=== PATIENT | female | born 1950 | race Caucasian/White ===

== ENCOUNTER 2019-01-24 09:14 | Inpatient (IN) ==
--- NOTE | 2019-01-24 09:39 | PROVIDER DOCUMENTATION ---
HPI-Respiratory General - General Chief Complaint: Shortness of Breath Stated Complaint: AMS Time Seen by Provider: 01/24/19 09:37 Source: patient, old records Allergies/Adverse Reactions: Patient Allergies Allergy/AdvReac Type Severity Reaction Status Date / Time No Known Allergies Allergy Verified 01/24/19 09:26 - History of Present Illness-Resp Nature of Presenting Problem: pt arrives per EMS who reported home 02 sat of "65%" upon their arrival. [facility]ats [facility] "[facility]" and called EMS. pt denies notable recent change in symptoms, denies recent sputum or fever. she has PMHx of bronchiectasis/PNA, is on home 02 which she says she adjusts from 2.5-3.0 L NC depending upon subjx symptoms. she has not taken her morning meds per her report, cannot name these but tells me it's "6-8." She tells me her pulmonologi st (Fab Mas) is in [place], her PCP locally is a Dr. Moulton. I find no admissions in her database here. initially family not present. subsequently her fiance' arrives and tells me last Wednesday she had a very brief spell where her 02 dropped for a few minutes and she became confused; they incr her 02 to 4L/min and she returned to normal. at the beside currently he tells me her MSE currently seems normal to him. she had arrived per EMS on 5L/min, but I turned her down to her 'baseline' 3L prior to fiance' arrival. her son also has now arrived and confirms her MSE seems normal @ present. he has a med list which includes Lasix 20 bid, explains during her last admit () she had "fluid retention," but no dx of CHF. he says every time they attempt to wean the Lasix she soon develops ankle edema. he notes she has been on maint. Prednisone for a long time, recently decreased from 20mg to [address] chest dtd April 06, 2018 interpreted as follows: IMPRESSION: 1. Pericardial effusion and trace bilateral pleural effusions. Nonspecific. 2. Advanced pulmonary fibrosis with bronchiectasis. 3. Large hiatal hernia. 4. Tiny nonobstructing left renal stone. Review of Systems - Adult - REVIEW OF SYSTEMS - ADULT ROS:: limited per condition (? patient may have AMS/dementia @ baseline ?) Constitutional: reports: no symptoms reported Eyes: reports: no symptoms reported Ears, Nose, Mouth & Throat: reports: no symptoms reported Cardiovascular: reports: no symptoms reported Respiratory: reports: see HPI Gastrointestinal: reports: no symptoms reported Genitourinary: reports: no symptoms reported Musculoskeletal: reports: no symptoms reported Integumentary: reports: no symptoms reported Neurological: reports: no symptoms reported Psychiatric: reports: no symptoms reported Endocrine: reports: no symptoms reported Hematologic/Lymphatic: reports: no symptoms reported Allergic/Immunologic: reports: no symptoms reported All Other Systems: Reviewed and Negative Past History - Adult - PAST MEDICAL HISTORY-ADULT Review of Records: reports: Old Records Reviewed Musculoskeletal: reports: orthopedic injury (pt reports she developed L foot- drop last Summer, and then tripped last Sep. resulting in ORIF for hip fx. she feels she made uneventful recovery. no hx of DVT/PE>) Physical Exam-General - PHYSICAL EXAM-ADULT Initial Vital Signs Reviewed: Yes - CONSTITUTIONAL General Appearance: appears well, alert, no apparent distress - EYES Eyes: PERRL/EOMI, pink conjunctivae - HEAD, EARS, NOSE, MOUTH & THROAT HENMT: normocephalic/atraumatic, moist mucous membranes - NECK Neck: non-tender, supple - RESPIRATORY Respiratory: no accessory muscle use, crackles - CARDIOVASCULAR Cardiovascular: regular rate, rhythm, tachycardia - GASTROINTESTINAL (ABDOMEN) Abdominal Exam: normal bowel sounds, non tender, soft - LYMPHATIC Lymphatic: no adenopathy - MUSCULOSKELETAL Back Exam: normal inspection, no CVA tenderness Extremity: no pedal edema. negative: pulse deficit Peripheral Pulses: radial (R): 2+, radial (L): 2+ - SKIN Integumentary: normal color, normal turgor, warm/dry. negative: cyanosis, purpura, rash - NEUROLOGIC Neurologic: digital marketing project manager II-XII nml as tested, grossly normal - PSYCHIATRIC Psych/Mental Status: normal mood/affect, normal thought content Progress - PLAN OF CARE/RESULTS Progress/Plan/Lab Results: Vital Signs - 8 hr 01/24/19 09:14 01/24/19 09:19 01/24/19 09:21 Temperature 98.3 F Pulse Rate 112 H Respiratory Rate 22 Blood Pressure 129/58 129/58 O2 Sat by Pulse Oximetry 98 81 L 01/24/19 09:30 01/24/19 09:40 01/24/19 09:50 Temperature Pulse Rate 105 H 104 H 108 H Respiratory Rate 37 H 33 H 30 H Blood Pressure O2 Sat by Pulse Oximetry 92 L 95 91 L 01/24/19 10:00 01/24/19 10:10 01/24/19 10:18 Temperature Pulse Rate 104 H 101 H 112 H Respiratory Rate 30 H 31 H 24 Blood Pressure O2 Sat by Pulse Oximetry 68 L 62 L 94 L 01/24/19 10:20 01/24/19 10:30 01/24/19 10:40 Temperature Pulse Rate 100 H 99 H 99 H Respiratory Rate 35 H 31 H 35 H Blood Pressure O2 Sat by Pulse Oximetry 54 L 100 01/24/19 10:50 01/24/19 11:00 Temperature Pulse Rate 96 H 98 H Respiratory Rate 35 H 33 H Blood Pressure O2 Sat by Pulse Oximetry 96 98 Laboratory Results - last 24 hr 01/24/19 01/24/19 01/24/19 09:30 09:30 09:30 WBC 23.93 H RBC 3.18 L Hgb 7.8 L Hct 27.4 L MCV 86.2 MCH 24.5 L MCHC 28.5 L RDW Std Deviation 18.4 H Plt Count 342 MPV 9.0 Immature Gran % (Auto) 0.6 H Neut % (Auto) 90.6 H Lymph % (Auto) 3.7 L Laurel % (Auto) 3.9 Eos % (Auto) 1.0 Baso % (Auto) 0.2 Immature Gran # (Auto) 0.15 H Neut # (Auto) 21.67 H Lymph # (Auto) 0.89 L Laurel # (Auto) 0.93 H Eos # (Auto) 0.25 Baso # (Auto) 0.04 Segmented Neutrophils 88 H Band Neutrophils 3 H Lymphocytes 4 L Monocytes 4 Eosinophils 1 Hypochromia 1+ Stomatocytes OCC Specimen Type Sample Site pH pCO2 pO2 HCO3 Base Excess Oxyhemoglobin ABG O2 Sat (Calculated) ABG O2 Saturation ABG Carboxyhemoglobin ABG Methemoglobin Zia Test A-a O2 Difference Total Hemoglobin Lactate Liter Flow Blood Gas Modality FiO2 % Sodium 141 Potassium 4.2 Chloride 104 Carbon Dioxide 26 Anion Gap 11 BUN 37 H Creatinine 0.8 Estimated GFR/1.73 m2 > 60 BUN/Creatinine Ratio 46 Glucose 94 Calculated Osmolality 290 Calcium 8.4 L Total Bilirubin 0.21 AST 19 ALT 9 L Alkaline Phosphatase 60 Troponin T Uct-F-Yvbjjrmxkoj Pept Total Protein 5.3 L Albumin 2.6 L Globulin 2.7 Albumin/Globulin Ratio 1.0 Plasma Lactate 1.0 01/24/19 01/24/19 01/24/19 09:30 09:30 10:00 WBC RBC Hgb Hct MCV MCH MCHC RDW Std Deviation Plt Count MPV Immature Gran % (Auto) Neut % (Auto) Lymph % (Auto) Laurel % (Auto) Eos % (Auto) Baso % (Auto) Immature Gran # (Auto) Neut # (Auto) Lymph # (Auto) Laurel # (Auto) Eos # (Auto) Baso # (Auto) Segmented Neutrophils Band Neutrophils Lymphocytes Monocytes Eosinophils Hypochromia Stomatocytes Specimen Type ARTERIAL Sample Site R BRACHIAL pH 7.50 H pCO2 36 pO2 73 HCO3 28.5 H Base Excess 4.6 H Oxyhemoglobin 94.0 L ABG O2 Sat (Calculated) 10.7 L ABG O2 Saturation 98.1 ABG Carboxyhemoglobin 2.90 H ABG Methemoglobin 1.3 Zia Test NO A-a O2 Difference 196.0 Total Hemoglobin 8.0 L Lactate 0.60 Liter Flow 6.0 Blood Gas Modality CANNULA FiO2 % 44.0 Sodium Potassium Chloride Carbon Dioxide Anion Gap BUN Creatinine Estimated GFR/1.73 m2 BUN/Creatinine Ratio Glucose Calculated Osmolality Calcium Total Bilirubin AST ALT Alkaline Phosphatase Troponin T 0.072 Iut-P-Lkjiekjbdgx Pept 8167 H Total Protein Albumin Globulin Albumin/Globulin Ratio Plasma Lactate Orders Category Date Time Status Saline Loc NOW Care 01/24/19 09:47 Active CHEST-1 VIEW [RAD] Stat Exams 01/24/19 09:51 Completed ABG [RESP] Routine Lab 01/24/19 10:00 Completed BLOOD CULTURE [BLDCUL] Stat Lab 01/24/19 09:31 Results BLOOD CULTURE [BLDCUL] Stat Lab 01/24/19 11:59 Ordered CBC WITH DIFF [HEME] Stat Lab 01/24/19 09:30 Completed COMPREHENSIVE METABOLIC PANEL [CHEM] Stat Lab 01/24/19 09:30 Completed LACTATE, PLASMA [CHEM] Stat Lab 01/24/19 09:30 Completed PRO B-NATRIURETIC PEPTIDE Stat Lab 01/24/19 09:30 Completed TROPONIN T Stat Lab 01/24/19 09:30 Completed Albuterol [Albuterol Neb] Med 01/24/19 09:47 Discontinued 2.5 mg INH NOW ONE Furosemide [Lasix] Med 01/24/19 11:57 Discontinued 80 mg IV NOW ONE Levofloxacin 500 mg/D5w [Levaquin 500 mg/D5w] Med 01/24/19 11:57 Active 500 mg in 100 ml IV NOW Methylprednisolone Sod Succ [Solu-Medrol] Med 01/24/19 11:58 Discontinued 125 mg IV NOW ONE Aerosol Treatments Routine Oth 01/24/19 09:48 Completed Aerosol Treatments Stat Oth 01/24/19 09:48 Completed Pulse Oximetry Stat Ot 01/24/19 09:47 Completed Result Diagrams: 01/24/19 09:30 01/24/19 09:30 - REASSESSMENT Reassessment #1 Time Reassessed: 12:11 Status: unchanged (sats still requiring signif support, however pt conversant and comfortable. wbc 23k (maint. Pred), imaging suggx signif bibasilar consolidation: will cover empirically w/ abx/blood culture for poss PNA, but clinically appears cor pulmonale. pt agrees to admt, will consult) - CONSULTS/PCP/HOSPITALIST Notification #1 *Consult/PCP/Hospitalist*: [place] Time Discussed: 12:05 Consult Disposition: Admit Departure - Departure Date of Disposition Decision: 01/24/19 Time of Disposition Decision: 12:13 DIAGNOSIS: Acute respiratory failure Disposition: ADMITTED INPATIENT 09 Certified Medical Emergency: Emergent Condition: Critical Referrals and Follow-Ups: None,PCP [Primary Care Provider] - - Critical Care Note This patient required my direct & personal management of CC.: Yes Total Time (mins): 40 Critical Care Statement: This patient required my direct personal management to treat or rule out processes, the absence of which, could potentiallly result in sudden, clinically significant life or limb threatening deterioration. Attestation - Physician/ ANTONIO Attestation The physician spent face to face time with patient:: Yes Advanced Practice Provider documentation review:: Supervising physician onsite and consulted in the evaluation and care of this patient. The physician did have a face to face encounter with the patient.
[2019-01-24] MEDS ORDERED: ALBUTEROL NEB INH ONE (09:47)
--- NOTE | 2019-01-24 10:10 | Diag Imaging Result Doc PS360 ---
EXAM: CHEST-1 VIEW HISTORY: dyspnea, hx bronchiectasis, PNA TECHNIQUE: Chest single view COMPARISON: 10/06/2017 FINDINGS: There are increased interstitial markings diffusely throughout both lungs with slight nodularity.. The heart is not enlarged. Questionable trace pleural fluid. IMPRESSION: Dense and diffuse bilateral infiltrates. Electronically signed by Ravi Eaton 01/24/2019 10:08 AM
[2019-01-24 10:16] LABS: ALLEN TEST NO; BE 4.6 mmoll (-3.0-3.0); BLOOD TYPE ARTERIAL; HCO3-(ACT) 28.5 mmoll (20.0-26.0); METHB 1.3 % (0.0-1.5); O2(CT) 10.7 mL/dL (15.0-23.0); PCO2(98.6) 36 mmHg (35-45); PO2(98.6) 73 mmHg (60-100); SAMPLE BLOOD; SAO2 98.1 % (95.0-100.0)
[2019-01-24 10:17] LABS: MODALITY CANNULA
[2019-01-24 10:20] LABS: BASO# 0.04 X1000 (0.0-0.2); BASO% 0.2 % (0.0-0.8); EOS# 0.25 X1000 (0.0-0.7); HEMATOCRIT 27.4 % (37.0-47.0); HEMOGLOBIN 7.8 g/dL (12.0-16.0); IMM GRAN# 0.15 X1000 (0.0-0.04); IMM GRAN% 0.6 % (0.0-0.5); LYMPH# 0.89 X1000 (1.2-3.4); LYMPH% 3.7 % (20.5-51.1); MCH 24.5 PG (27-31); MCHC 28.5 g/dL (33-37); MCV 86.2 FL (81-99); MONO# 0.93 X1000 (0.11-0.59); MONO% 3.9 % (1.7-9.3); NEUT# 21.67 X1000 (1.4-6.5); NEUT% 90.6 % (42.2-75.2); PLT 342 X1000 (130-400); RBC 3.18 XMIL (4.2-5.4); RDW 18.4 % (11.5-14.5); WBC 23.93 X1000 (4.8-10.8)
[2019-01-24 10:29] LABS: AGAP 11; ALBUMIN 2.6 g/dL (3.5-5.0); ALKALINE PHOSPHATASE 60 U/L (32-104); BUN 37 mg/dL (8-22); CALCIUM 8.4 mg/dL (8.8-10.2); CHLORIDE 104 mmol/L (98-107); COSMO 290; CREATININE 0.8 mg/dL (0.5-0.9); ESTIMATED GFR > 60; GLUCOSE 94 mg/dL (70-104); GOT 19 U/L (10-30); GPT 9 U/L (10-36); POTASSIUM 4.2 mmol/L (3.5-5.1); SODIUM 141 mmol/L (136-145); TCO2 26 mmol/L (25-35); TOTAL BILIRUBIN 0.21 mg/dL (0.20-1.00); TOTAL PROTEIN 5.3 g/dL (6.3-8.3)
[2019-01-24 10:36] LABS: BANDS 3 % (0-1); EOS 1 % (1-10); HYPOCHROM 1+; LYMPHS 4 % (21-51); MONO 4 % (1-9); SEGS 88 % (42-75)
[2019-01-24 10:37] LABS: STOMATOCYTES OCC
--- NOTE | 2019-01-24 11:42 | ED EKG INTERP ---
This chart was entered by Gerald Gibson Scribe, acting as scribe for Kenney Youssef MD. EKG Interpretation - EKG Time of EKG reading by physician:: 09:18 EKG Read and Signed by:: Kenney Youssef EKG Interpretation (*Must complete 3 of following elements*): Abnormal Rate: 113 Rhythm: Sinus Tachycardia QRS: RBB (incomplete), LVH Comments: Inferior and anterior infarct age undetermined Attestation - Physician/ ANTONIO Attestation The physician spent face to face time with patient:: Yes Advanced Practice Provider documentation review:: Supervising physician onsite and consulted in the evaluation and care of this patient. The physician did have a face to face encounter with the patient. This chart was documented by the indicated scribe, (Gerald Gibson Scribe) and accurately reflects the services I performed and decisions made by me, Kenney Collins MD, as attested by the provider's signature.
[2019-01-24] MEDS ORDERED: LEVAQUIN 500 MG/D5W 500 MG/100 ML IVPB IV ONE (11:57)
[2019-01-24] MEDS ORDERED: LASIX IV ONE (11:57)
[2019-01-24] MEDS ORDERED: SOLU-MEDROL IV ONE (11:58)
--- NOTE | 2019-01-24 12:35 | EKG Report ---
Test Performed on : 01/24/2019 09:18:56 AM Test Reason : ED. NO EKG ORDER FOR MUSE Blood Pressure : / mmHG Vent. Rate : 113 BPM Atrial Rate : 113 BPM P-R Int : 158 ms QRS Dur : 098 ms QT Int : 346 ms P-R-T Axes : 025 -17 021 degrees QTc Int : 474 ms Sinus tachycardia. Possible Left atrial enlargement Incomplete right bundle branch block Left ventricular hypertrophy Inferior infarct , age undetermined Anterior infarct , age undetermined Abnormal ECG No previous ECGs available Unconfirmed Result
[2019-01-24] MEDS ORDERED: ZOFRAN IV PRN (13:05)
[2019-01-24] MEDS ORDERED: DUONEB (A & A) INH PRN (13:10)
--- NOTE | 2019-01-24 13:17 | Diag Imaging Result Doc PS360 ---
EXAM: CT THORAX W/O CONTRAST 01/24/2019 HISTORY: evaluate pulm fibrosis TECHNIQUE: This exam was performed using automated exposure control, adjustment of mA or kV according to patient size, and/or use of iterative reconstruction technique. COMMENT: The current examination is compared with the previous study of 04/06/2018. There are patchy groundglass opacities particularly on the left side in the upper lobe. There is groundglass opacity, traction bronchiectasis and honeycombing in the lower lobes consistent with a UIP pattern. While the basilar findings are similar to the previous examination, the groundglass opacities in the upper lung zones are much worse particularly in the left upper lobe. This may represent a superimposed pneumonia. There is a small pleural effusion on the left as there was on the previous study. There is a small amount of pleural thickening versus loculated effusion on the right. There is fluid in the pericardial space which is slightly larger than on the previous examination measuring over 9 mm anteriorly. There is a hiatal hernia. There is paratracheal and aorticopulmonary window adenopathy which is worse than on the previous study. There is a fairly large amount of stool in the transverse colon. IMPRESSION: Worsening groundglass opacities particularly in the left upper lobe which may represent pneumonia superimposed on pulmonary fibrosis. Electronically signed by Veto Cottrell 01/24/2019 1:14 PM
[2019-01-24] MEDS: DUONEB (A & A) INH SCH ×2 (15:32→20:05)
--- NOTE | 2019-01-24 17:04 | HISTORY AND PHYSICAL ---
CHIEF COMPLAINT: Shortness of breath and oxygen desaturation. HISTORY OF PRESENT ILLNESS: This 68-year-old white female, who is on chronic oxygen therapy for pulmonary fibrosis and COPD, was at her home this morning, and her dentist attendant noted low oxygen saturation of 65, which was subsequently confirmed by medical care evaluation specialist. There was a questionable malfunction of her oxygen concentrator, which has yet to be verified. The patient did not have any worsening cough, shaking chills, but had become suddenly short of breath. She denied any chest pain or palpitations. She always runs a relatively high heart rate which is over 100, due to her chronic lung conditions. The patient has been hospitalized since I first saw her in September several times in [place], and I do not have adequate communication with [place] to verify testing and/or overall status. I last saw the patient 01/03/2019 following multiple hospitalizations. It is noted that the patient also has a chronic leukocytosis which has been looked at by a Hematology/Oncology in [place], but no specific findings or diagnosis was made. PAST MEDICAL HISTORY: 1. Pulmonary fibrosis. 2. Chronic obstructive pulmonary disease. 3. Hypertension. 4. Depression. 5. Rheumatic tricuspid stenosis. 6. Iron deficiency anemia. 7. Diaphragmatic hernia. 8. Left artificial hip. 9. Chronic leukocytosis. 10. Chronic tachycardia. PAST SURGICAL HISTORY: Left hip replacement surgery. SOCIAL HISTORY: The patient is a . She does not use alcohol. She always wears seat belts. FAMILY HISTORY: Hypertension, heart disease, fatty liver, dementia, and breast cancer. REVIEW OF SYSTEMS: As stated earlier, the patient has been out from her last hospitalization for approximately a month with no significant complications. She has not been wheezing or been more short of breath, but had an acute episode this morning for inexplicable reasons. The patient's son states that she has occasional episodes which appear to be stroke-like. He describes that her mouth will draw, and she will not be able to communicate for a short period of time. Most often this is associated with changes in her respiratory status. The patient denies any chest pain or palpitations. She has had no nausea or vomiting. She has no change in her bowel movements. She has no genitourinary complaints Neurologically, there has been no change. The patient's anxiety has been well controlled on present medications since the turn of the year, at least. MEDICATIONS: Eliquis 5 mg p.o. b.i.d., albuterol inhaler every 4 hours as needed, aspirin 81 mg p.o. daily, ferrous sulfate 325 p.o. daily, vitamin B12 injected monthly 1000 mcg, fluticasone nasal spray daily as needed, furosemide 20 mg p.o. b.i.d., ipratropium/albuterol aerosol treatments 3 times daily, lisinopril 10 mg daily, paroxetine 40 mg 1-1/2 p.o. daily, prednisone 20 mg p.o. daily, and trospium 20 mg p.o. daily. PHYSICAL EXAMINATION: GENERAL: The patient is an elderly white female who is in no acute distress, but she does speak in short bursts of sentences, which is atypical for her usual pattern. Her speech is clear. ENT: Unremarkable. EYES: Sclerae are anicteric. Oral mucosa is adequately hydrated. NECK: There is no JVD present in the recumbent position. No bruits are heard. LUNGS: Show dry crackles in almost all peralta. The left side seems to be worse than the right. There is no wheezing. She has reasonable air movement which approximates her baseline level of air movement. CARDIOVASCULAR: Regular tachycardia. ABDOMEN: Bowel sounds are present. EXTREMITIES: No peripheral edema. LABORATORIES: White blood cell count is 23.9 (baseline is 15,000 to 23,000), hemoglobin 7.8, hematocrit 27, platelet count 342,000. Serum electrolytes were grossly normal. BUN 37, creatinine 0.8. ProBNP was 8167. Her initial blood gas showed a pH 7.5, pCO2 of 36, PO2 of 73, and 98% saturated on 6 L nasal cannula. ASSESSMENT AND PLAN: 1. The patient clearly has chronic lung disease with multisystem involvement. We are going to treat her as if she has pneumonia, adding antibiotics. The CT scan performed after her ER stay showed possible increase in the left upper lobe consolidation, which could be pneumonia superimposed upon her chronic pulmonary fibrosis. There were other subtle findings on that study. I am not worried about her white count, as it is not that far out from her usual. Her ABG is suggestive of hyperventilation brought on by her hypoxemia. We will continue oxygen at 4 L and monitor oxygen saturations. 2. Because of a high proBNP, an echocardiogram was ordered. The patient is on twice a day Lasix right now, and we will monitor fluid intake via catheter. 3. The patient's depression and anxiety will be maintained with her usual home medications. 4. Appropriate PRNs are written. cc: Lionel Eng MD
--- NOTE | 2019-01-24 17:20 | ECHO REPORT ---
ORDER DATE: 01/24/2019 INDICATION: Pulmonary hypertension, bilateral pleural effusions. M-MODE MEASUREMENTS: Left ventricle end diastole: 3.2. Left ventricle end systole: 2.0. Posterior wall: 1.4. Interventricular septum: 1.5. Left atrium: 3.0 Aortic diameter: 3.0 SUMMARY OF 2-DIMENSIONAL IMAGIN. Left ventricular function is hyperdynamic. Ejection fraction is probably on the order of 85% to 90%. There is very subtle systolic anterior motion of the mitral valve. The maximum gradient that appears to be within the chamber is 22 mmHg, related to the hyperdynamic, hypertrophic ventricle. There is a moderate degree of concentric LVH. 2. The left atrium appears to be mildly enlarged. 3. The aortic valve looks grossly normal. Color flow mapping unremarkable. 4. The pulmonic valve looks grossly normal. Color flow mapping unremarkable. 5. The tricuspid valve shows a relatively mild degree of regurgitation. Pulmonary systolic pressure is markedly elevated. The velocity at the level of the jet of tricuspid regurgitation is 5.17 m/sec. That translates into a pulmonary systolic pressure of about 107 mmHg or greater. That is consistent with very severe pulmonary hypertension. 5. The right ventricle appears to be hypertrophic and is enlarged at least moderately. 6. Pulsed wave Doppler of mitral inflow shows fusion of the E and A waves. 7. Tissue Doppler of septal and lateral mitral annulus also shows fusion of the E prime and A prime waves. 8. There is no evidence of masses. No thrombus. SUMMARY: This study shows: 1. Moderate concentric LVH with a hyperdynamic left ventricle. 2. Very severe pulmonary hypertension. Pulmonary pressure is greater than 107 mmHg. 3. Diastolic function may be impaired. 4. Moderately severe degree of tricuspid regurgitation. 5. Trace of pericardial effusion. 6. Of note, the inferior vena cava was not dilated. Clinical correlation is strongly recommended. cc: MD Lionel Crouch MD
[2019-01-24] MEDS: ELIQUIS PO SCH (20:21)
[2019-01-25 00:19] LABS: CALCIUM 8.8 mg/dL (8.8-10.2); CREATININE 1.1 mg/dL (0.5-0.9); POTASSIUM 4.2 mmol/L (3.5-5.1)
[2019-01-25 00:20] LABS: BASO# 0.03 X1000 (0.0-0.2); BASO% 0.2 % (0.0-0.8); HEMATOCRIT 25.5 % (37.0-47.0); HEMOGLOBIN 7.4 g/dL (12.0-16.0); LYMPH% 2.1 % (20.5-51.1); MCV 86.1 FL (81-99); MONO# 0.16 X1000 (0.11-0.59); MONO% 0.8 % (1.7-9.3); MPV 8.4 FL (7.4-10.4); NEUT# 18.59 X1000 (1.4-6.5); NEUT% 96.9 % (42.2-75.2); PLT 302 X1000 (130-400); RBC 2.96 XMIL (4.2-5.4); RDW 18.3 % (11.5-14.5); WBC 19.18 X1000 (4.8-10.8)
[2019-01-25] MEDS: DUONEB (A & A) INH SCH ×3 (08:06→21:15)
[2019-01-25] MEDS: ASPIRIN EC PO SCH (08:43)
[2019-01-25] MEDS: SANCTURA PO SCH (08:43)
[2019-01-25] MEDS: LASIX IV SCH (08:43)
[2019-01-25] MEDS: FERROUS SULFATE PO SCH (08:43)
[2019-01-25] MEDS: PAXIL PO SCH (08:43)
[2019-01-25] MEDS: PRINIVIL PO SCH (08:43)
[2019-01-25] MEDS: ELIQUIS PO SCH ×2 (08:43→22:00)
[2019-01-25] MEDS: PREDNISONE PO SCH (08:43)
--- NOTE | 2019-01-25 09:41 | PROGRESS NOTE ---
DATE: 01/25/2019 SUBJECTIVE: The patient states that she is feeling better. She does not have her hearing aids right now and is having a little bit of difficulty, though she seems to understand and respond appropriately. OBJECTIVE: Vital Signs: Temperature 97.7, heart rate 95, blood pressure 140/66, 92% saturated on 4 L nasal cannula. Lungs: The patient has better air movement in the left upper lobe. There continues to be dry crackles there as well. She is not wheezing. It is noticeable that her speech pattern has improved since yesterday. She was speaking in very short sentences yesterday and having a little more difficulty breathing. Today she is fluid and speaking in extended sentences without any breathlessness. Neuropsychiatric: Appears to be intact and at baseline. Cardiovascular: Regular tachycardia. LABORATORY: White cell count 19.2, hemoglobin 7.4, hematocrit 25.5. ABG was not drawn. ASSESSMENT AND PLAN: 1. The patient's acute respiratory compromise has been confirmed to be at least partially related to malfunction of her oxygen concentrator at home. The [employer] replaced her entire concentrator and gave her a new large cylinder to use as a backup. I suspect in speaking with her son, who had interviewed her sitters, that they suspected a malfunction as early as 4 a.m. the previous night and by the time they looked at other alternatives, she has been essentially without oxygen for a number of hours. That would have lead to her acute and severe decompensation. In addition, the rapid breathing triggered a respiratory alkalosis. This all seems to be reversed at present and she is operating at baseline. 2. The patient has a baseline anemia and is followed by a wedding consultant in [place]. She was unsure of her usual numbers, but seemed to indicate that her baseline hemoglobin was in the 9's. Given the fact that her hemoglobin is 7.4, and she is so dependent on that for completing her oxygenation, I am going to transfuse her 1 unit of packed red cells and if she is doing well this afternoon or tomorrow morning, I will be able to send her home. 3. The patient remains tachycardic. 4. The patient's echocardiogram showed a hyperdynamic left ventricle with mild hypertrophy of ventricular thickness and 95% ejection fraction. She had severe tricuspid regurgitation, which is an old finding. There were no acute findings or segmental motion abnormalities. cc: Lionel Eng MD
[2019-01-25] MEDS ORDERED: NS 1,000 ML ONE (10:35)
[2019-01-25] MEDS: LEVAQUIN 250 MG/D5W 250 MG/50 ML IVPB IV SCH (15:38)
[2019-01-26 02:05] LABS: INR 1.39; PROTIME 18.2 Seconds (11.0-16.0); PTT 32.5 Seconds (22.3-41.8)
[2019-01-26 02:17] LABS: ALBUMIN 2.8 g/dL (3.5-5.0); BASO# 0.03 X1000 (0.0-0.2); BASO% 0.1 % (0.0-0.8); CALCIUM 8.8 mg/dL (8.8-10.2); CREATININE 1.1 mg/dL (0.5-0.9); EOS# 0.13 X1000 (0.0-0.7); EOS% 0.6 % (0.0-10.0); HEMATOCRIT 32.7 % (37.0-47.0); HEMOGLOBIN 9.9 g/dL (12.0-16.0); IMM GRAN% 1.7 % (0.0-0.5); LYMPH# 0.93 X1000 (1.2-3.4); MCH 25.6 PG (27-31); MCHC 30.3 g/dL (33-37); MCV 84.5 FL (81-99); MONO# 1.51 X1000 (0.11-0.59); MONO% 6.5 % (1.7-9.3); NEUT# 20.09 X1000 (1.4-6.5); NEUT% 87.1 % (42.2-75.2); PLT 353 X1000 (130-400); POTASSIUM 4.1 mmol/L (3.5-5.1); RBC 3.87 XMIL (4.2-5.4); RDW 17.8 % (11.5-14.5); TOTAL BILIRUBIN 0.48 mg/dL (0.20-1.00); TOTAL PROTEIN 5.6 g/dL (6.3-8.3); WBC 23.09 X1000 (4.8-10.8)
[2019-01-26] MEDS: TYLENOL PO PRN (02:55)
[2019-01-26 03:29] LABS: BILIRUBIN URINE NEGATIVE (NEGATIVE); BLOOD URINE SMALL (NEGATIVE); COLOR YELLOW; GLUCOSE URINE NEGATIVE (NEGATIVE); KETONE URINE NEGATIVE (NEGATIVE); LEUKOCYTES URINE NEGATIVE (NEGATIVE); NITRITE URINE NEGATIVE (NEGATIVE); PROTEIN URINE TRACE mg/dL (NEGATIVE); SP GRAVITY URINE 1.014; TURBIDITY URINE CLEAR (CLEAR); URINE SOURCE CLEAN CATCH; UROBILINOGEN URINE NORMAL (NORMAL)
[2019-01-26 03:30] LABS: UR EPITHELIAL CELLS <10 /HPF (<10); URINE BACTERIA NEGATIVE /HPF; URINE RBC <10 /HPF (<10); URINE WBC <10 /HPF (<10)
[2019-01-26] MEDS: DUONEB (A & A) INH SCH ×3 (08:14→21:00)
[2019-01-26] MEDS: PREDNISONE PO SCH (09:01)
[2019-01-26] MEDS: ELIQUIS PO SCH (09:01)
[2019-01-26] MEDS: PAXIL PO SCH (09:01)
[2019-01-26] MEDS: LASIX IV SCH (09:01)
[2019-01-26] MEDS: FERROUS SULFATE PO SCH (09:01)
[2019-01-26] MEDS: ASPIRIN EC PO SCH (09:01)
[2019-01-26] MEDS: PRINIVIL PO SCH (09:01)
[2019-01-26] MEDS: SANCTURA PO SCH (09:01)
[2019-01-26 10:00] LABS: ALLEN TEST YES; BE 5.5 mmoll (-3.0-3.0); BLOOD TYPE ARTERIAL; HCO3-(ACT) 28.9 mmoll (20.0-26.0); METHB 1.4 % (0.0-1.5); O2(CT) 12.7 mL/dL (15.0-23.0); PCO2(98.6) 36 mmHg (35-45); SAMPLE BLOOD; SAO2 87.6 % (95.0-100.0); THB 10.8 g/dL (11.5-17.4); pH(98.6) 7.51 (7.35-7.45)
[2019-01-26 10:02] LABS: MODALITY CANNULA
[2019-01-26 10:03] LABS: O2HB 83.9 % (95.0-99.0); PO2(98.6) 47 mmHg (60-100)
--- NOTE | 2019-01-26 11:19 | Diag Imaging Result Doc PS360 ---
EXAM: CHEST-2 VIEWS 01/26/2019 HISTORY: pulmonary fibrosis TECHNIQUE: PA and lateral chest COMMENT: There is diffuse alveolar and interstitial opacity bilaterally. This has improved slightly since the previous study of 01/24/2019 but is clearly worse than on 10/06/2017. IMPRESSION: Findings consistent with pulmonary fibrosis plus minus pneumonia. Electronically signed by Veto Cottrell 01/26/2019 11:17 AM
[2019-01-26] MEDS: OMNICEF PO SCH ×2 (12:31→22:05)
[2019-01-26] MEDS: LEVAQUIN 250 MG/D5W 250 MG/50 ML IVPB IV SCH (12:31)
--- NOTE | 2019-01-26 15:10 | PROGRESS NOTE ---
DATE: 01/26/2019 SUBJECTIVE: The patient is lying in the bed. She has just been cleaned up by the staff. She is awake and alert. I asked her how she was feeling and she really did not answer. She questioned as to why we had not gotten another chest x-ray for the "fluid on her lungs." I tried to explain that she did not really have any fluid on her lungs per se, and that most of her studies were likely at or near baseline. She then stated that she did not want to go home. OBJECTIVE: Vital Signs: Temperature is 97.7 degrees, pulse rate is 105, respirations 17, blood pressure 127/63, saturating 93% on 4 L nasal cannula. Lungs: The patient has dry crackles in the left upper lobe. She is not wheezing. She is moving air well. She is speaking in slightly shorter sentences for inexplicable reasons. LABORATORY DATA: White cell count is 23, hematocrit 32.7 (post transfusion). ABG showed a pH of 7.51, pCO2 of 36, and a PO2 of 47. Oxygen saturation at that time was 87.6, again for inexplicable reasons. BUN is 48, creatinine 1.0. ASSESSMENT AND PLAN: 1. The patient appears to be hyperventilating. I realize that her oxygenation is also at issue here, but it is not clear why she is actually hyperventilating. 2. I still believe that the patient's decline was precipitated at least partially by malfunction of her oxygen concentrator. 3. The patient has been transfused 1 unit of packed cells with reasonable increase in her hemoglobin. Today's shortness of breath may be related to the fluid volume infused during that transfusion. We are going to restart her Lasix today to see if we can get that equilibrated. 4. The patient remains intermittently tachycardic and tachypneic. 5. I am hopeful that the patient will feel better tomorrow and be ready to go home. The repeat chest x-ray has shown improvement in the interval, according to the radiologist. 6. We are aware of the severe tricuspid regurgitation. cc: Lionel Eng MD
--- NOTE | 2019-01-26 22:00 | PULMONOLOGY CONSULTATION ---
DATE: 01/26/2019 REQUESTING PHYSICIAN: Lionel Eng MD. REASON FOR CONSULTATION: Pulmonary fibrosis. HISTORY OF PRESENT ILLNESS: Ms. Diaz is a 68-year-old, white female, never smoker, who was diagnosed with pulmonary fibrosis last summer. She is followed by Dr. Fab Mas. The patient has had 4 admissions to the hospital in [place], but no recent admissions to this hospital. One admission was for a fall and a broken hip. She was readmitted due to wound dehiscence. The 3rd and 4th admissions she believes was related to hypoxemia. She is on blood thinner and reports she has had blood clots. The patient reports she has been on oxygen since after her diagnosis. She does report that her prednisone was decreased from 20 mg a day to 10 mg a day about 1 week ago. Yesterday, she presented to the emergency room with hypoxemia. She reported she thought that her oxygen concentrator was not working and therefore her DME came to her house and replaced her oxygen. However, arterial blood gas today on 4 L per nasal cannula reveals significant hypoxemia with a pH of 7.51, pCO2 of 36, pO2 of 47. The patient reports she did have a cough with some bloody phlegm in [place] last fall and has also had some bloody phlegm this week. She denies fevers or chills. She denies prior connective tissue disorder. She denies working in [employer] environments. She denies unusual pets or recent travel. PAST MEDICAL HISTORY/PROBLEM LIST: 1. Pulmonary fibrosis, presumed idiopathic. 2. Hypertension. 3. Chronic tachycardia. 4. Chronic leukocytosis. 5. History of diaphragmatic hernia. 6. Iron deficiency anemia. 7. Status post hip fracture. 8. History of blood clots as outlined above. It is not clear whether this represented a DVT or PTE. SOCIAL HISTORY: She is a never smoker and a nondrinker. FAMILY HISTORY: No known lung diseases in the family. Family history positive for hypertension and breast cancer. REVIEW OF SYSTEMS: As noted in the HPI. PHYSICAL EXAMINATION: General: Reveals a well-developed, well-nourished, white female resting comfortably and in no distress. Vital Signs: BP 127/63, heart rate 105, respiratory rate 17, oxygen saturation 93%. HEENT: Pupils are equal and reactive. Oropharynx is clear. Neck: Supple. Chest: Reveals diffuse crackles bilaterally without wheezing or rhonchi. Cardiac Exam: Increased rate, regular rhythm with S1, and split S2. No definite right ventricular heave appreciated. Abdomen: Soft. Extremities: Reveal trace edema. Neurologic: Cranial nerves 2- 12 are grossly intact. LABORATORIES: CT scan of the thorax dated 01/24/2019 is reviewed and compared to 04/06/2018. She has bilateral fibrosis with predominance of honeycombing in the lung bases, along with traction bronchiectasis. Basilar findings are similar, but she now has new ground-glass changes in the upper lobes, significantly more prominent on the left than on the right. She has mild paratracheal and aorticopulmonary window. Echocardiogram reveals hyperdynamic left ventricle with a moderate degree of LVH, extremely severe pulmonary hypertension with estimated pulmonary artery systolic pressure 107, hypertrophic right ventricle: Trace pericardial effusion. White blood count 23,000, hemoglobin 9.9, platelet count 353,000. Sodium 145, potassium 4.1, chloride 106, bicarbonate 26, BUN 48, creatinine 1.1. IMPRESSION: A 68-year-old with presumptive idiopathic pulmonary fibrosis, who presents with acute on chronic hypoxemic respiratory failure, worsening cough, mild hemoptysis, with marked worsening and CT scan findings compared to March of last year. Patient now has significant ground-glass changes bilaterally. This may represent an acute exacerbation of idiopathic pulmonary fibrosis. She has no clinical signs of infection. She does have a known chronic leukocytosis. The patient also has a cough productive of some bloody sputum and some of the changes may be accounts receivable representative of alveolar hemorrhage. RECOMMENDATION: 1. Augment steroids for possible acute exacerbation of idiopathic pulmonary fibrosis. 2. Send C-reactive protein to quantitate degree of inflammation and to see if this is steroid responsive. 3. Hold Eliquis this evening and decrease dosing given her minor hemoptysis/bloody sputum. 4. Consider right heart catheterization which can be done with resolution of her acute exacerbation. 5. Consider treatment of pulmonary hypertension. This can be decided as an outpatient by Dr. Fab Mas. PROGNOSIS: With acute exacerbation, hypoxemic respiratory failure, severe pulmonary hypertension, her prognosis is guarded to poor. cc: MD Lionel Ferreira MD Jason Smith, MD [facility]
[2019-01-26] MEDS: SOLU-MEDROL IV SCH (22:15)
[2019-01-27] MEDS: SOLU-MEDROL IV SCH ×4 (04:24→22:30)
[2019-01-27] MEDS: DUONEB (A & A) INH SCH ×3 (09:05→21:50)
--- NOTE | 2019-01-27 10:21 | PROGRESS NOTE ---
DATE: 01/27/2019 SUBJECTIVE: The patient is asleep in the bed and is easily arousable and is alert, oriented, conversive and appropriate. She states that she believes she is feeling a little bit better. OBJECTIVE: Vital Signs: 97.9 degrees, 85, 134/66. Oxygen saturation is unreliable as all of her readings list Venturi mask as the method of oxygen delivery and she is not wearing a mask at the time of my examination. The only time I have seen her with a mask is when she is getting an aerosol treatment. Fluid balance -630. Lungs: The patient has good air movement in both lungs. She still has some dry crackling in the left upper lobe, which is marginally improved from yesterday. She has a wet-sounding cough which you would expect from someone with bronchiectasis. She is not wheezing and she is less tachypneic than on previous exams. Cardiovascular: Regular without appreciable murmur or gallop. Extremities: Show no peripheral edema. Neuro/Psych: The patient is alert, oriented, conversive and appropriate. LABORATORY: Yesterday, the patient's ABG again showed a respiratory alkalosis with a pH of 7.5, pCO2 of 36, and a PO2 of 47. BUN and creatinine were stable. The patient had a C-reactive protein, which was markedly elevated at 90.7. ASSESSMENT AND PLAN: 1. Dr. Teran was consulted yesterday at the request of the patient's significant other. He started her on steroids under the assumption that her situation at present is a reflection of an acute exacerbation of her chronic pulmonary fibrosis. She seemed to have responded to IV steroids and indeed had a very high C-reactive protein level. We will continue respiratory support and steroids. Hopefully, we can design a prednisone taper for her on an outpatient basis until she follows up with her healthcare economics manager, Dr. Mas. 2. Patient's anemia was corrected with transfusion 1 unit of packed cells. 3. The patient's other medications remain as previously. 4. The patient's relative hyperventilation is likely driven by her hypoxemia. Hopefully, if we correct this, so will her respiratory rate and air movement. 5. Severe tricuspid regurgitation. We are aware of. cc: Lionel Eng MD
[2019-01-27] MEDS: ASPIRIN EC PO SCH (10:23)
[2019-01-27] MEDS: LASIX IV SCH (10:23)
[2019-01-27] MEDS: OMNICEF PO SCH ×2 (10:23→20:59)
[2019-01-27] MEDS: SANCTURA PO SCH (10:23)
[2019-01-27] MEDS: PRINIVIL PO SCH (10:23)
[2019-01-27] MEDS: FERROUS SULFATE PO SCH (10:23)
[2019-01-27] MEDS: PAXIL PO SCH (10:23)
[2019-01-27] MEDS: LEVAQUIN 250 MG/D5W 250 MG/50 ML IVPB IV SCH (12:43)
--- NOTE | 2019-01-27 18:33 | PULMONOLOGY PROGRESS NOTE ---
DATE: 01/27/2019 SUBJECTIVE: The patient is awake, alert and conversant. She reports her shortness of breath has slightly diminished. OBJECTIVE: Vital Signs: The patient has been afebrile for the last 24 hours. Blood pressure 133/61, heart rate 99, respiratory rate 19, oxygen saturation 96% on 4 L per nasal cannula. HEENT: Pupils are equal and reactive. Oropharynx is clear . Neck: Is supple. Chest: Reveals bilateral crackles. Cardiac: S1, S2. Abdomen: Soft and without hepatosplenomegaly. Extremities: Are without edema. LABORATORIES: Connective tissue cascade is pending. CRP is significantly elevated at 91. No new chemistries or CBC or chest x-ray. IMPRESSION: A 68-year-old with idiopathic pulmonary fibrosis, acute on chronic hypoxemic respiratory failure, minor hemoptysis, severe pulmonary hypertension with a pulmonary artery systolic pressure estimated at 107 mmHg. RECOMMENDATIONS: 1. Continue reduced dose of Eliquis for minor hemoptysis. 2. Consider followup C-reactive protein in 3 to 4 days. 3. Continue antibiotics and steroids. 4. Follow up chest x-ray tomorrow. 5. Follow up as an outpatient with Dr. Fab Mas for reevaluation of her severe pulmonary hypertension. cc: MD Lionel Ferreira MD
[2019-01-27] MEDS: ELIQUIS PO SCH (20:58)
[2019-01-28] MEDS: TYLENOL PO PRN (00:02)
[2019-01-28] MEDS: DUONEB (A & A) INH SCH ×3 (03:00→21:14)
[2019-01-28 05:38] LABS: ALLEN TEST YES; BE 4.6 mmoll (-3.0-3.0); BLOOD TYPE ARTERIAL; HCO3-(ACT) 28.5 mmoll (20.0-26.0); PCO2(98.6) 38 mmHg (35-45); PO2(98.6) 70 mmHg (60-100); SAMPLE BLOOD; pH(98.6) 7.48 (7.35-7.45)
[2019-01-28 05:39] LABS: MODALITY CANNULA
[2019-01-28] MEDS: SOLU-MEDROL IV SCH ×2 (05:50→11:45)
[2019-01-28 07:33] LABS: HEMATOCRIT 29.3 % (37.0-47.0); HEMOGLOBIN 8.5 g/dL (12.0-16.0); IMM GRAN# 0.12 X1000 (0.0-0.04); IMM GRAN% 0.6 % (0.0-0.5); LYMPH# 0.55 X1000 (1.2-3.4); LYMPH% 2.6 % (20.5-51.1); MCH 24.8 PG (27-31); MCV 85.4 FL (81-99); MONO# 0.46 X1000 (0.11-0.59); MONO% 2.2 % (1.7-9.3); MPV 9.4 FL (7.4-10.4); NEUT# 20.12 X1000 (1.4-6.5); NEUT% 94.6 % (42.2-75.2); PLT 370 X1000 (130-400); RBC 3.43 XMIL (4.2-5.4); RDW 18.3 % (11.5-14.5); WBC 21.25 X1000 (4.8-10.8)
[2019-01-28 07:43] LABS: LYMPHS 3 % (21-51); MONO 2 % (1-9); SEGS 95 % (42-75)
[2019-01-28 08:17] LABS: ALB/GLOB RATIO 0.7; ALBUMIN 2.5 g/dL (3.5-5.0); CALCIUM 9.1 mg/dL (8.8-10.2); CREATININE 1.1 mg/dL (0.5-0.9); MAGNESIUM 2.1 mg/dL (1.5-2.7); PHOSPHORUS 4.7 mg/dL (2.7-4.5); POTASSIUM 3.9 mmol/L (3.5-5.1); TOTAL BILIRUBIN 0.46 mg/dL (0.20-1.00)
--- NOTE | 2019-01-28 08:45 | Diag Imaging Result Doc PS360 ---
EXAM: CHEST-2 VIEWS INDICATION: abnormal exam TECHNIQUE: 2 views COMPARISON: 01/26/2019 FINDINGS: Interstitial and airspace opacities throughout both lungs indicating pulmonary fibrosis +/- edema and pneumonia are essentially stable. There is likely a small left effusion that appears stable. No new consolidations are appreciated. Cardiac silhouette is stable. IMPRESSION: Stable chest. Electronically signed by Royal Ellis 01/28/2019 8:43 AM
[2019-01-28] MEDS: FERROUS SULFATE PO SCH (09:44)
[2019-01-28] MEDS: SANCTURA PO SCH (09:44)
[2019-01-28] MEDS: OMNICEF PO SCH ×3 (09:44→22:53)
[2019-01-28] MEDS: PRINIVIL PO SCH (09:45)
[2019-01-28] MEDS: ELIQUIS PO SCH ×3 (09:45→22:53)
[2019-01-28] MEDS: ASPIRIN EC PO SCH (09:45)
[2019-01-28] MEDS: PAXIL PO SCH (09:45)
--- NOTE | 2019-01-28 12:27 | PROGRESS NOTE ---
DATE: 01/28/2019 SUBJECTIVE: The patient states that she has improved. Her breathing is easier. She still has a little bit of a cough but is generally nonproductive and not interrupting her breathing. She was able to get up into the chair yesterday successfully and did well. OBJECTIVE: Vital Signs: 98.1, 89, 18, 134/63, 97% saturated on 4 L nasal cannula. Negative 630. Lungs: The patient has good air movement in both lungs. I think that the coarseness of the left upper lobe has improved even since yesterday. She is speaking in longer sentences and does not seem to be as breathless as previous days. Cardiovascular: Regular and not tachycardic. Extremities: No peripheral edema. ASSESSMENT AND PLAN: 1. Patient's pulmonary fibrosis with acute exacerbation seems to have improved on high-dose IV steroids. I would be fine with the patient going home but will need to design a prednisone taper for her to use which might proximate the positive affects that the steroids had while in the hospital. Dr. Teran would like to redraw C-reactive protein level at some point. Her long-term follow-up will be with Dr. Mas in [place]. 2. The patient's anemia. As noted, her hemoglobin has drifted down to 8.5. We will continue to monitor this. 3. The patient's BUN has climbed over the last few blood draws, likely due to the fact of the IV Lasix. I held the Lasix this morning. We will see how she does and likely recheck that down the line. I think she would be safe to return to her previous dose of p.o. Lasix at the present time. 4. Hyperventilation on ABGs is noted although has improved somewhat yesterday. 5. The patient has severe tricuspid regurgitation is noted. She is unaware of what caused this malady and as far she is aware, no one has ever addressed whether this is a correctable defect or not. I suspect that the overall lung function would prohibition any type of massive surgery to try and repair that if it was even possible. cc: Lionel Eng MD
[2019-01-28] MEDS ORDERED: PREDNISONE PO ONE (16:24)
--- NOTE | 2019-01-28 22:03 | PROGRESS NOTE ---
DATE: 01/28/2019 SUBJECTIVE: The patient is awake, alert, and conversant. She reports her shortness of breath has diminished. She has had no additional hemoptysis. OBJECTIVE: Vital Signs: The patient's oxygen saturation is 96% on 4 L per nasal cannula, BP 130/57, heart rate 91, respiratory rate 16. The patient has been afebrile for the last 24 hours. HEENT: Pupils are equal and reactive. Oropharynx appears clear. Neck: Supple. Chest: Reveals crackles bilaterally. Cardiac exam: S1, S2. Abdomen: Soft and without hepatosplenomegaly. Extremities: Without edema. LABORATORIES: Chest x-ray is interpreted as no change but has significantly improved over the last few days when compared to 01/24/2019. Microbiology reveals no new culture data. White blood count 21,000, hemoglobin 8.5, platelet count 370,000. Sodium 141, potassium 3.9, chloride 102, bicarbonate 24, BUN 63 with slight elevation from yesterday at 48, creatinine 1.1 which is stable. IMPRESSION: A 68-year-old with: 1. Idiopathic pulmonary fibrosis. 2. [id number] hypoxemic respiratory failure. 3. Acute pulmonary infiltrates. 4. Minor hemoptysis with severe pulmonary hypertension. 5. Overall marginal improvement in the last 3 to 4 days. RECOMMENDATIONS: 1. We will continue reduced dose of Eliquis at the time of discharge. 2. We will initiate oral steroids. 3. Perform followup C-reactive protein level tomorrow. 4. Continue antibiotics. 5. Consider discharge tomorrow with followup with Dr. Fab Mas, if she continues to improve. cc: MD Lionel Ferreira MD
[2019-01-29 07:59] LABS: ALB/GLOB RATIO 0.9; ALBUMIN 2.5 g/dL (3.5-5.0); CALCIUM 8.9 mg/dL (8.8-10.2); POTASSIUM 4.2 mmol/L (3.5-5.1); TOTAL BILIRUBIN 0.3 mg/dL (0.20-1.00); TOTAL PROTEIN 5.3 g/dL (6.3-8.3)
[2019-01-29 08:07] LABS: C REACTIVE PROT QUANT 30.92 mg/L (0.00-5.00)
[2019-01-29] MEDS: OMNICEF PO SCH ×3 (08:39→23:07)
[2019-01-29] MEDS: PAXIL PO SCH (08:39)
[2019-01-29] MEDS: ASPIRIN EC PO SCH (08:39)
[2019-01-29] MEDS: SANCTURA PO SCH (08:39)
[2019-01-29] MEDS: ELIQUIS PO SCH ×3 (08:39→23:07)
[2019-01-29] MEDS: PRINIVIL PO SCH (08:39)
[2019-01-29] MEDS: FERROUS SULFATE PO SCH (08:39)
[2019-01-29] MEDS: PREDNISONE PO SCH (08:40)
[2019-01-29] MEDS: DUONEB (A & A) INH SCH ×3 (08:52→21:32)
--- NOTE | 2019-01-29 13:23 | PROGRESS NOTE ---
DATE: 01/29/2019 SUBJECTIVE: The patient had just woken up. She was unclear about how she was feeling. She stated that she rested well and her breathing was stable. OBJECTIVE: Vital Signs: 97.4, 88, 17, 131/60, 98% saturated on 4 L nasal cannula. Lungs: Clear. She is speaking in longer sentences and does not seem to be breathless. Cardiovascular: Regular. Extremities: No peripheral edema. LABORATORY: The patient's BUN climbed to 86 and creatinine to 1.0. ASSESSMENT AND PLAN: 1. The patient seemed to have tolerated the transition to oral steroids well and her breathing seems stable. When asked if she was ready to go home she stated maybe tomorrow. 2. Patient's BUN has been climbing without accompanying elevation in creatinine. I think this is likely due to pre renal azotemia and a bit of overdiuresis. Her Lasix has been held and we will follow up on this either tomorrow or as an outpatient. 3. The patient's anemia has shown her hemoglobin to drift down to 8.5 yesterday. Will check this prior to discharge. 4. The patient does hyperventilate a bit as evidenced on the last ABG. This may also be driven slightly by contraction alkalosis. 5. The patient's severe tricuspid regurgitation is noted. cc: Lionel Eng MD MTDD
--- NOTE | 2019-01-29 18:38 | PULMONOLOGY PROGRESS NOTE ---
DATE: 01/29/2019 SUBJECTIVE: The patient is awake and alert. She reports she feels better than yesterday. She has a cough which is now dry. She has not seen additional blood tinged sputum. OBJECTIVE: Vital Signs: Blood pressure 131/60, heart rate 88, respiratory rate 17, oxygen saturation 98% on 4 L per nasal cannula. HEENT: Pupils are equal and reactive. Oropharynx appears clear. Neck: Supple. Chest: Crackles, left greater than right apex and in both lung bases. Cardiac: Distant heart sounds. Normal S1, normal S2. Abdomen: Soft. Extremities: Trace edema. LABORATORIES: C-reactive protein has decreased from 90.7 on 01/26/2019, to a current value of 30.9. Sodium 132, potassium 4.2, chloride 97, BUN 86, creatinine 1.0. IMPRESSION: A 68-year-old with: 1. Idiopathic pulmonary fibrosis. 2. Minor hemoptysis. 3. Severe pulmonary hypertension. 4. Acute on chronic hypoxemic respiratory failure. 5. Acute pulmonary infiltrates, with clinical and radiographic improvement with increased steroid dosing and decreased Eliquis dosing. 6. Acute renal insufficiency. RECOMMENDATIONS: 1. Continue prednisone 30 mg per day. We have continued this dose at the time of discharge until she has a followup with Dr. Fab Mas. 2. Continue reduced dose of Eliquis at the time of discharge. 3. Complete 7 day course of antibiotics at the discretion of Dr. Eng. 4. Consider discharge tomorrow. The patient is a candidate for discharge from a pulmonary standpoint. She may need to follow up with additional lab work given her acute renal insufficiency. cc: MD Lionel Ferreira MD [facility]
[2019-01-30 07:37] LABS: BASO# 0.01 X1000 (0.0-0.2); EOS# 0.08 X1000 (0.0-0.7); EOS% 0.4 % (0.0-10.0); HEMATOCRIT 23.2 % (37.0-47.0); HEMOGLOBIN 6.6 g/dL (12.0-16.0); IMM GRAN# 0.32 X1000 (0.0-0.04); IMM GRAN% 1.5 % (0.0-0.5); LYMPH# 1.27 X1000 (1.2-3.4); LYMPH% 5.8 % (20.5-51.1); MCHC 28.4 g/dL (33-37); MCV 87.9 FL (81-99); MONO# 1.82 X1000 (0.11-0.59); MONO% 8.3 % (1.7-9.3); NEUT# 18.49 X1000 (1.4-6.5); PLT 418 X1000 (130-400); RBC 2.64 XMIL (4.2-5.4); RDW 18.6 % (11.5-14.5); WBC 21.99 X1000 (4.8-10.8)
[2019-01-30 07:43] LABS: CALCIUM 8.6 mg/dL (8.8-10.2); CREATININE 1.1 mg/dL (0.5-0.9); POTASSIUM 4.2 mmol/L (3.5-5.1)
[2019-01-30] MEDS: PRINIVIL PO SCH (08:27)
[2019-01-30] MEDS: PAXIL PO SCH (08:27)
[2019-01-30] MEDS: SANCTURA PO SCH (08:27)
[2019-01-30] MEDS: FERROUS SULFATE PO SCH (08:27)
[2019-01-30] MEDS: ELIQUIS PO SCH (08:27)
[2019-01-30] MEDS: ASPIRIN EC PO SCH (08:27)
[2019-01-30] MEDS: PREDNISONE PO SCH (08:27)
[2019-01-30] MEDS: OMNICEF PO SCH ×3 (08:37→20:22)
--- NOTE | 2019-01-30 10:02 | Diag Imaging Result Doc PS360 ---
EXAM: CHEST-2 VIEWS HISTORY: abnormal exam TECHNIQUE: Chest two views COMPARISON: 01/28/2019 FINDINGS: The lungs are well expanded. There are increased interstitial markings throughout the left lung and right base. The appearance is fairly similar to that of the prior exam. No cardiomegaly. No pleural effusions identified. IMPRESSION: Stable chest. Electronically signed by Ravi Eaton 01/30/2019 10:00 AM
[2019-01-30] MEDS: DUONEB (A & A) INH SCH ×3 (10:34→21:53)
[2019-01-30] MEDS ORDERED: NS 0 ML ONE (14:50)
--- NOTE | 2019-01-30 16:47 | PROGRESS NOTE ---
DATE: 01/30/2019 SUBJECTIVE: The patient states she feels okay today. We had a long discussion about her elevation in BUN, blood thinner, and the necessity for additional transfusion. OBJECTIVE: Vital Signs: 97.8, 90, 18, 111/49, 97% saturated on a 3 L nasal cannula. Lungs: The patient has good air movement. There is no wheezing. Her lungs have mild crackles in the left upper lobe. Cardiovascular: Regular. Extremities: No peripheral edema. LABORATORY: White cell count is 21,000, hemoglobin 6.6, hematocrit 23.2. BUN 87, creatinine 1.1. ASSESSMENT AND PLAN: 1. The patient has tolerated transition to oral steroids well and is breathing quite well at the present time. 2. The patient's BUN continues to climb despite holding Lasix. I believe this is due to GI blood loss. I have ordered Hemoccult on all stools, and I have held the patient's Eliquis and aspirin. We are going to get venous Dopplers to see if she can come off the blood thinner altogether. We also went to transfuse 1 unit of packed red cells, and then hopefully, we can pursue colonoscopy and upper endoscopy on an outpatient basis. 3. No ABG was drawn. 4. The patient's severe tricuspid regurgitation is noted. I spoke with the patient's son today and he was unaware that she had a bad valve at all and this had not been mentioned over the last 6 to 8 months of her continuing battles with pulmonary fibrosis. cc: Lionel Eng MD
--- NOTE | 2019-01-30 20:52 | PULMONOLOGY PROGRESS NOTE ---
DATE: 01/30/2019 SUBJECTIVE: The patient is awake, alert, and conversant. She reports her breathing is doing much better. She was not discharged today because her hemoglobin has declined. She denies hemoptysis, hematemesis, melena or hematochezia. OBJECTIVE: Vital Signs: Blood pressure 121/48, heart rate 97, respiratory rate 16, oxygen saturation 98% on 2 L per nasal cannula. HEENT: Pupils are equal and reactive. Oropharynx is clear. Neck: Supple. Chest: Significant crackles in the lung bases. Cardiac: S1, S2, without definite right ventricular heave. Abdomen: Soft, with positive bowel sounds. Extremities: Without cyanosis, clubbing, or edema. LABORATORIES: Chest x-ray reveals significant improvement today when compared to admission film of 01/24/2019. White blood count 21,000, hemoglobin 6.6, platelet count 418,000. Sodium 139, potassium 4.2, chloride 103, bicarbonate 27, BUN 87, creatinine 1.1. IMPRESSION: A 68-year-old with: 1. Idiopathic pulmonary fibrosis. 2. Minor hemoptysis. 3. Severe pulmonary hypertension. 4. Acute on chronic hypercapnic respiratory failure. 5. Acute renal insufficiency. BUN and creatinine have stabilized. 6. Acute on chronic pulmonary infiltrates with minor hemoptysis. This may have been related to alveolar hemorrhage and infiltrates, improved with decreasing Eliquis and steroids. RECOMMENDATIONS: 1. Continue current steroid dose. 2. Agree with blood transfusion. 3. Agree with interruption of Eliquis. Considered restarting at a lower dose at the time of discharge. 4. Recommend followup in the near future with Dr. Fab Mas. cc: MD Lionel Ferreira MD
[2019-01-31 07:01] LABS: WBC 14.22 X1000 (4.8-10.8)
[2019-01-31 07:02] LABS: BASO# 0.01 X1000 (0.0-0.2); BASO% 0.1 % (0.0-0.8); EOS# 0.13 X1000 (0.0-0.7); EOS% 0.9 % (0.0-10.0); HEMATOCRIT 25.2 % (37.0-47.0); HEMOGLOBIN 7.4 g/dL (12.0-16.0); IMM GRAN% 2.1 % (0.0-0.5); LYMPH% 7.7 % (20.5-51.1); MCH 25.8 PG (27-31); MCHC 29.4 g/dL (33-37); MCV 87.8 FL (81-99); MONO# 1.18 X1000 (0.11-0.59); MONO% 8.3 % (1.7-9.3); MPV 9.2 FL (7.4-10.4); NEUT% 80.9 % (42.2-75.2); PLT 384 X1000 (130-400); RBC 2.87 XMIL (4.2-5.4); RDW 17.4 % (11.5-14.5)
[2019-01-31 07:13] LABS: ESTIMATED GFR > 60
[2019-01-31 07:18] LABS: AGAP 6; BUN 69 mg/dL (8-22); CALCIUM 8.7 mg/dL (8.8-10.2); CHLORIDE 107 mmol/L (98-107); COSMO 300; CREATININE 0.9 mg/dL (0.5-0.9); GLUCOSE 82 mg/dL (70-104); POTASSIUM 4.7 mmol/L (3.5-5.1); SODIUM 141 mmol/L (136-145); TCO2 28 mmol/L (25-35)
[2019-01-31] MEDS: DUONEB (A & A) INH SCH ×2 (08:00→15:56)
[2019-01-31] MEDS: PREDNISONE PO SCH (08:47)
[2019-01-31] MEDS: FERROUS SULFATE PO SCH (08:48)
[2019-01-31] MEDS: SANCTURA PO SCH (08:48)
[2019-01-31] MEDS: PAXIL PO SCH (08:48)
[2019-01-31] MEDS: OMNICEF PO SCH (08:48)
[2019-01-31 10:00] LABS: RETIC% 2.27 % (0.8-2.1); RETIC-HE 30.2 PG (28.2-36.6)
[2019-01-31 15:15] VITALS: BP 151/75
--- NOTE | 2019-01-31 18:33 | DISCHARGE SUMMARY ---
ADMISSION DATE: 01/24/2019 DISCHARGE DATE: 01/31/2019 DISCHARGE DIAGNOSES: 1. Acute respiratory failure with hypoxemia. 2. Malfunction of oxygen apparatus. 3. Pulmonary fibrosis with acute exacerbation. 4. Severe tricuspid regurgitation. 5. Acute blood loss anemia. 6. Anticoagulant therapy. 7. History of deep venous thrombosis. CONSULTATIONS: Dr. Chauncey Teran. PAST MEDICAL HISTORY: Chronic anemia and chronic leukocytosis. HOSPITAL COURSE: This 68-year-old white female presented with acute hypoxemia. She had suffered some type of malfunction with her oxygen device at home, which was unbeknownst to her caretakers until she had been off of oxygen for quite some time. She was found to be acutely hypoxemic and confused but, came around very easily once we had her oxygen levels up. I think this triggered an acute exacerbation of her pulmonary fibrosis. Although she was somewhat better the next day, we continued to treat her with some IV Lasix due to her severe tricuspid regurgitation and tendency to fluid overload as well as aerosol treatments. Pulmonary consultation was obtained, and the patient was put temporarily on some high-dose steroids to alleviate the acute exacerbation. The patient was maintained on antibiotics in the event that she was developing a bronchitis, but she never developed any fever or worsening in that regard. The patient's breathing improved somewhat slower than expected. On several occasions, we discussed discharge to home but she felt she was not up for it despite a clear improvement in her respiratory pattern. The patient was continued on the IV Lasix, and we noted that her BUN continued to climb. She has chronic anemia and chronic leukocytosis. We noted that her blood count kept going down and BUN was climbing, but the creatinine was maintaining the same. She required a transfusion of a total of 3 units of packed red cells during her hospitalization. We did a venous Doppler because she had had a blood clot in her left leg postoperatively several months ago. The venous Doppler showed a tiny bit of residual clot in the inferior popliteal area, but there was flow through that area so it appeared to have recanalized. Her Eliquis was stopped altogether as a result of that finding. I theorized that the patient's blood loss was due to mainly the blood thinner and GI loss. Her iron studies, B12, and folic acid were normal. Retic count was appropriate. I called Dr. Parnell's office on the day when I was planning discharge to get immediate follow-up for colonoscopy and EGD. This was explained to the patient that she does have some hearing deficit, and hopefully she understood everything. I repeated it multiple times in a very loud voice very close to her, and I think she did understand all of this. The patient is discharged home in good condition. The only change in medications is an increase in her steroids to prednisone of 30 mg. She will have follow up with her regular framing inspector in [place]. We have also discontinued her Eliquis and aspirin for the time being. Followup will be with me in 2 to 3 weeks. She will have some sort of follow up with Dr. Parnell this week for colonoscopy and the EGD. cc: Lionel Eng MD
== END 2019-01-31 17:00 | disposition home health service (06) | DRG 196 ==
LOC: SUPCPDRO → ED 09:14 → 3N 13:42
PROVIDERS: ADMIT Internal Medicine; ATTEND Internal Medicine
CPT/HCPCS: 36430; 71010; 71020; 71045; 71046; 71250; 80048; 80053; 81001; 82550; 82607; 82746; 82805; 83605; 83735; 83880; 84100; 84155; 84165; 84484; 85025; 85045; 85610; 85730; 86038; 86140; 86200; 86850; 86870; 86900; 86901; 86920; 86922; 87040; 93005; 93306; 93971; 94640; 94761; 99285; A9270; J1940; J1956; J2930; J7030; J7040; J7506; J7512; P9016

== ENCOUNTER 2019-02-24 07:19 | Inpatient (IN) ==
[2019-02-24] MEDS ORDERED: DUONEB (A & A) INH ONE (07:38)
[2019-02-24] MEDS ORDERED: NS 1,000 ML IV ONE (07:38)
[2019-02-24] MEDS ORDERED: SOLU-MEDROL IV ONE (07:38)
--- NOTE | 2019-02-24 07:50 | Diag Imaging Result Doc PS360 ---
CHEST-PORTABLE - 02/24/2019 INDICATION: dyspnea COMPARISON: 01/30/2019 FINDINGS: Stable extensive pulmonary fibrosis. Stable cardiomegaly. No new infiltrates. No pneumothorax or large pleural effusion. IMPRESSION: Advanced pulmonary fibrosis. Cardiomegaly. Electronically signed by Aleksander Gomes 02/24/2019 7:48 AM
--- NOTE | 2019-02-24 07:55 | PROVIDER DOCUMENTATION ---
HPI-Neurological Disorder - General Chief Complaint: Altered Mental Status Stated Complaint: AMS Time Seen by Provider: 02/24/19 07:33 Source: patient, family Allergies/Adverse Reactions: Patient Allergies Allergy/AdvReac Type Severity Reaction Status Date / Time No Known Allergies Allergy Verified 02/24/19 08:21 Home Medications: Home Medication List Medication Instructions Recorded Confirmed Last Taken Type Albuterol Sulfate [Ventolin Hfa] 2 puff INH Q6-8H PRN PRN 01/24/19 02/24/19 Unknown History Ferrous Sulfate 1 tab PO DAILY 01/24/19 02/24/19 02/07/19 20:00 History 1 Furosemide 2 tab PO QAM 01/24/19 02/24/19 02/07/19 20:00 History 1 Lisinopril 1 tab PO DAILY 01/24/19 02/24/19 02/08/19 08:00 History 1 Paroxetine HCl 1.5 tab PO DAILY 01/24/19 02/24/19 02/07/19 08:00 History 1.5 Trospium [Sanctura] 1 tab PO DAILY 01/24/19 02/24/19 02/07/19 08:00 History 1 Albuterol 2.5MG/Ipratrop 0.5MG 3 ml INH Q2H PRN PRN neb 01/31/19 02/24/19 02/08/19 08:00 Rx [Duoneb (A & A)] 3 Cyanocobalamin (Vitamin B-12) 1,000 mcg IJ DIRECTED 02/03/19 02/24/19 02/06/19 History [Cyanocobalamin Injection] 1000 Guaifenesin [Mucinex] 600 mg PO BID 02/03/19 02/24/19 02/07/19 20:00 History 600 CephALEXIN [Keflex] 500 mg PO BID 02/08/19 02/24/19 02/07/19 08:00 History 250 Omeprazole [Prilosec] 40 mg PO DAILY #90 capsule. 02/08/19 02/24/19 Unknown Rx Furosemide 20 mg PO QPM 02/24/19 02/24/19 Unknown History Multivit with Calcium,Iron,Min 1 ea PO DAILY 02/24/19 02/24/19 Unknown History [Womens Multiple Vitamins] Prednisone 10 mg PO DAILY 02/24/19 02/24/19 Unknown History - History of Present Illness-Neuro Nature of Presenting Problem: Patient has hx of pulmonary fibrosis, CHF and pneumonia, notes increaseing SOB over the last 1-2 days, this morning was minimally responsive at home with sats in the 70s on her usual 3.5l of O2. Last admitted for similar symptoms last month. Denies cough, CP, fever/chills, N/V or myalgias. Headache Location: reports: other (none) Severity: reports: moderate Onset/Duration: reports: 2 days ago Timing: reports: still present, constant, getting worse Context: reports: found unresponsive by family Character of Altered Mental Status: reports: unresponsive, decreased responsiveness Any recent trauma/injury?: reports: none Character of Deficits: reports: new weakness (generalized), impaired speech, decreased ability to stand, decreased ability to walk New weakness or altered sensation location:: reports: general (diffuse) Cognitive Baseline: alert, oriented x3 Gait Baseline: walks only with assistance Associated Symptoms: reports: short of breath, decreased ability to walk or stand, weakness Similar Symptoms Previously?: Yes (respiratory failure) Recently seen or treated by another doctor?: Yes (EGD couple of weeks ago) Review of Systems - Adult - REVIEW OF SYSTEMS - ADULT Constitutional: reports: no symptoms reported Eyes: reports: no symptoms reported Ears, Nose, Mouth & Throat: reports: no symptoms reported Cardiovascular: reports: no symptoms reported Respiratory: reports: see HPI, chronic cough, dyspnea on exertion, shortness of breath. denies: excessive sputum production, hemoptysis, pleurisy, wheezing Gastrointestinal: reports: no symptoms reported Genitourinary: reports: no symptoms reported Musculoskeletal: reports: no symptoms reported Integumentary: reports: no symptoms reported Neurological: reports: no symptoms reported Psychiatric: reports: no symptoms reported Endocrine: reports: no symptoms reported Hematologic/Lymphatic: reports: no symptoms reported Allergic/Immunologic: reports: no symptoms reported All Other Systems: Reviewed and Negative Past History - Adult - PAST MEDICAL HISTORY-ADULT Review of Records: reports: Old Records Reviewed, Nursing Assessment Review, Medications Reviewed, Social history reviewed & non-contributory. Major Childhood Illnesses: reports: denies history Cardiovascular: reports: blood clots, CHF, HTN, hyperlipidemia Respiratory: reports: lung disease, pneumonia Gastrointestinal: reports: denies history Obstetrical/Gynecological: reports: denies history Genitourinary: reports: denies history Musculoskeletal: reports: orthopedic injury (pt reports she developed L foot- drop last Summer, and then tripped last Nov. resulting in ORIF for hip fx. she feels she made uneventful recovery. no hx of DVT/PE>) Neurological: reports: denies history Endocrine/Immune: reports: denies history Other Conditions: reports: denies history - PRIOR SURGERIES/PROCEDURES Surgical/Procedure History: reports: reviewed, not pertinent - IMMUNIZATION STATUS Childhood Immunizations: UTD Flu Vaccine: UTD - FAMILY HISTORY Family History: reviewed, not pertinent - SOCIAL HISTORY Smoking: non-smoker Substance Use: none/never Alcohol Use Frequency: never Living Situation: family Physical Exam- Neurological - Physical Exam-Neuro Initial Vital Signs Reviewed: Yes (tachycardic, otherwise normal) General Appearance: no apparent distress, thin, lethargic, slow to respond (but responds appropriately.) Eye Exam: bilateral eye: normal inspection, PERRL, EOMI HENMT: normocephalic/atraumatic, moist mucous membranes, normal ENT inspection, pharynx normal Head Injury: no evidence of injury Neck: non-tender, full range of motion, supple, normal inspection Respiratory: chest non-tender, no pleuratic chest pain, no respiratory distress, no accessory muscle use, decreased breath sounds Cardiovascular: normal peripheral pulses, regular rate, rhythm, no edema, no gallop, no JVD, systolic murmur (11/13) Abdominal Exam: normal bowel sounds, non tender, soft, no organomegaly, no pulsatile mass Extremity: normal range of motion, non-tender, no calf tenderness, normal capillary refill, 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, normal speech, PERRL Coordination/Gait: normal finger to nose, abnormal gait (not tested) Motor/Sensory: no motor deficit, no sensory deficit, no pronator drift, negative Babinski's sign, positive Babinski's sign Neurologic: junior high math teacher II-XII nml as tested, grossly normal, no motor/sensory deficits Integumentary: normal color, normal turgor, warm/dry Psych/Mental Status: normal mood/affect, normal thought content, normal thought process, oriented x 3 - Glascow Coma Scale Best Eye Response: (4) open spontaneously Best Verbal Response: (5) oriented Best Motor Response: (6) obeys commands Total Glascow Score: 15 Progress - PLAN OF CARE/RESULTS Progress/Plan/Lab Results: Vital Signs - 8 hr 02/24/19 07:26 02/24/19 07:29 02/24/19 07:30 Temperature 98.3 F Pulse Rate 101 H 101 H Respiratory Rate 32 H 24 Blood Pressure 112/71 112/71 O2 Sat by Pulse Oximetry 98 90 L 95 02/24/19 07:31 02/24/19 07:40 02/24/19 07:50 Temperature Pulse Rate 102 H 101 H 99 H Respiratory Rate 33 H 31 H 33 H Blood Pressure 129/71 O2 Sat by Pulse Oximetry 90 L 88 L 83 L 02/24/19 08:00 02/24/19 08:10 02/24/19 08:20 Temperature Pulse Rate 99 H 98 H 93 H Respiratory Rate 33 H 28 H 30 H Blood Pressure O2 Sat by Pulse Oximetry 86 L 81 L 95 02/24/19 08:24 02/24/19 08:30 02/24/19 08:31 Temperature Pulse Rate 100 H 93 H 93 H Respiratory Rate 20 29 H 28 H Blood Pressure 158/78 O2 Sat by Pulse Oximetry 93 L 94 L 93 L 02/24/19 08:40 02/24/19 08:50 02/24/19 09:00 Temperature Pulse Rate 97 H 96 H 94 H Respiratory Rate 33 H 32 H 31 H Blood Pressure O2 Sat by Pulse Oximetry 90 L 88 L 91 L 02/24/19 09:02 02/24/19 09:10 02/24/19 09:20 Temperature Pulse Rate 94 H 92 H 92 H Respiratory Rate 31 H 34 H 32 H Blood Pressure 135/62 O2 Sat by Pulse Oximetry 93 L 91 L 90 L 02/24/19 08:48 Influenza Screen - Final Nasopharyngeal Laboratory Results - last 24 hr 02/24/19 02/24/19 02/24/19 07:53 07:53 07:53 WBC 27.20 H RBC 3.49 L Hgb 8.9 L Hct 29.8 L MCV 85.4 MCH 25.5 L MCHC 29.9 L RDW Std Deviation 18.9 H Plt Count 300 MPV 9.4 Immature Gran % (Auto) 0.7 H Neut % (Auto) 91.0 H Lymph % (Auto) 3.3 L [place] % (Auto) 4.4 Eos % (Auto) 0.5 Baso % (Auto) 0.1 Immature Gran # (Auto) 0.18 H Neut # (Auto) 24.76 H Lymph # (Auto) 0.90 L [place] # (Auto) 1.20 H Eos # (Auto) 0.13 Baso # (Auto) 0.03 PT INR Specimen Type Sample Site pH pCO2 pO2 HCO3 Base Excess Oxyhemoglobin ABG O2 Sat (Calculated) ABG O2 Saturation ABG Carboxyhemoglobin ABG Methemoglobin Zia Test A-a O2 Difference Total Hemoglobin Lactate Liter Flow Blood Gas Modality FiO2 % Sodium 142 Potassium 3.8 Chloride 104 Carbon Dioxide 26 Anion Gap 12 BUN 30 H Creatinine 1.1 H Estimated GFR/1.73 m2 49 BUN/Creatinine Ratio 27 Glucose 127 H POC Glucose Calculated Osmolality 291 Calcium 8.9 Magnesium 1.8 Total Bilirubin 0.34 AST 28 ALT 23 Alkaline Phosphatase 75 Creatine Kinase 93 Troponin T Deh-V-Nyvzfbajuue Pept Total Protein 6.1 L Albumin 2.6 L Globulin 3.5 Albumin/Globulin Ratio 0.7 Plasma Lactate 1.1 Urine Source Urine Color Urine Turbidity Urine pH Ur Specific [place] Urine Protein Ur Glucose (Stick) Ur Ketones (Stick) Urine Blood Urine Nitrite Urine Bilirubin Urobilinogen Dipstick Urine Leukocytes Urine WBC (Auto) Urine RBC (Auto) U Epithel Cells (Auto) Urine Bacteria (Auto) 02/24/19 02/24/19 02/24/19 07:53 07:53 07:53 WBC RBC Hgb Hct MCV MCH MCHC RDW Std Deviation Plt Count MPV Immature Gran % (Auto) Neut % (Auto) Lymph % (Auto) [place] % (Auto) Eos % (Auto) Baso % (Auto) Immature Gran # (Auto) Neut # (Auto) Lymph # (Auto) [place] # (Auto) Eos # (Auto) Baso # (Auto) PT 15.3 INR 1.12 Specimen Type Sample Site pH pCO2 pO2 HCO3 Base Excess Oxyhemoglobin ABG O2 Sat (Calculated) ABG O2 Saturation ABG Carboxyhemoglobin ABG Methemoglobin Zia Test A-a O2 Difference Total Hemoglobin Lactate Liter Flow Blood Gas Modality FiO2 % Sodium Potassium Chloride Carbon Dioxide Anion Gap BUN Creatinine Estimated GFR/1.73 m2 BUN/Creatinine Ratio Glucose POC Glucose Calculated Osmolality Calcium Magnesium Total Bilirubin AST ALT Alkaline Phosphatase Creatine Kinase Troponin T 0.142 H Jei-Q-Lpjcyffhgmd Pept > 58329 H Total Protein Albumin Globulin Albumin/Globulin Ratio Plasma Lactate Urine Source Urine Color Urine Turbidity Urine pH Ur Specific [place] Urine Protein Ur Glucose (Stick) Ur Ketones (Stick) Urine Blood Urine Nitrite Urine Bilirubin Urobilinogen Dipstick Urine Leukocytes Urine WBC (Auto) Urine RBC (Auto) U Epithel Cells (Auto) Urine Bacteria (Auto) 02/24/19 02/24/19 02/24/19 08:07 08:15 08:54 WBC RBC Hgb Hct MCV MCH MCHC RDW Std Deviation Plt Count MPV Immature Gran % (Auto) Neut % (Auto) Lymph % (Auto) [place] % (Auto) Eos % (Auto) Baso % (Auto) Immature Gran # (Auto) Neut # (Auto) Lymph # (Auto) [place] # (Auto) Eos # (Auto) Baso # (Auto) PT INR Specimen Type ARTERIAL Sample Site L BRACHIAL pH 7.52 H pCO2 35 pO2 56 L HCO3 29.1 H Base Excess 5.5 H Oxyhemoglobin 89.7 L* ABG O2 Sat (Calculated) 11.4 L ABG O2 Saturation 93.2 L ABG Carboxyhemoglobin 2.60 H ABG Methemoglobin 1.2 Zia Test NO A-a O2 Difference 157.0 Total Hemoglobin 9.0 L Lactate 1.00 Liter Flow 4.0 Blood Gas Modality CANNULA FiO2 % 36.0 Sodium Potassium Chloride Carbon Dioxide Anion Gap BUN Creatinine Estimated GFR/1.73 m2 BUN/Creatinine Ratio Glucose POC Glucose 136 H Calculated Osmolality Calcium Magnesium Total Bilirubin AST ALT Alkaline Phosphatase Creatine Kinase Troponin T Zzr-R-Ulleoptastr Pept Total Protein Albumin Globulin Albumin/Globulin Ratio Plasma Lactate Urine Source CATH Urine Color YELLOW Urine Turbidity CLEAR Urine pH 5.5 Ur Specific [place] 1.018 Urine Protein 30 A Ur Glucose (Stick) NEGATIVE Ur Ketones (Stick) NEGATIVE Urine Blood MODERATE A Urine Nitrite NEGATIVE Urine Bilirubin NEGATIVE Urobilinogen Dipstick NORMAL Urine Leukocytes NEGATIVE Urine WBC (Auto) <10 Urine RBC (Auto) <10 U Epithel Cells (Auto) <10 Urine Bacteria (Auto) NEGATIVE Orders Category Date Time Status Admit - [facility] Routine AdmDCTranf 02/24/19 09:36 Active Activity - Strict Bedrest ORDERED Care 02/24/19 09:36 Active Cardiology Consult ROUTINE Care 02/24/19 09:36 Active Garcia Cath Insertion ORDERED Care 02/24/19 07:36 Active Neurological Check Q4H Care 02/24/19 09:37 Active Nursing- MD Consult Request ROUTINE Care 02/24/19 09:39 Active Saline Loc NOW Care 02/24/19 07:36 Active Vital Signs Order ROUTINE Care 02/24/19 09:36 Active Z-Document. for Tele Applied ORDERED Care 02/24/19 09:37 Active Physician/Provider Consults Routine Cons 02/24/19 09:36 Ordered Regular Diet Diet 02/24/19 09:37 Active CHEST-PORTABLE [RAD] Stat Exams 02/24/19 07:38 Completed ABG [RESP] Routine Lab 02/24/19 08:15 Completed BLOOD CULTURE [BLDCUL] Stat Lab 02/24/19 07:53 Received CBC WITH ELECTRONIC DIFF [HEME] Stat Lab 02/24/19 07:53 Completed CK PROFILE [SP CHEM] Stat Lab 02/24/19 07:53 Completed COMPREHENSIVE METABOLIC PANEL [CHEM] Stat Lab 02/24/19 07:53 Completed INFLUENZA SCREEN A/B Stat Lab 02/24/19 08:48 Completed LACTATE, PLASMA [CHEM] Stat Lab 02/24/19 07:53 Completed MAGNESIUM [CHEM] Stat Lab 02/24/19 07:53 Completed PRO B-NATRIURETIC PEPTIDE Stat Lab 02/24/19 07:53 Completed PROTIME WITH INR [COAG] Stat Lab 02/24/19 07:53 Completed SPUTUM CULTURE WITH GRAM STAIN [RM] Stat Lab 02/24/19 07:38 Uncollected TROPONIN T Stat Lab 02/24/19 07:53 Completed URINALYSIS W/POSS RFLX CULT [URINALYSIS] Stat Lab 02/24/19 08:07 Completed 0.9% Sodium Chloride Inj [Ns] 1,000 ml Med 02/24/19 07:38 Discontinued IV 999 mls/hr Acetaminophen [Tylenol] Med 02/24/19 09:36 Ordered 650 mg PO Q6H PRN PRN Albuterol 2.5MG/Ipratrop 0.5MG [Duoneb (A & A)] Med 02/24/19 07:38 Discontinued 3 ml INH NOW ONE Methylprednisolone Sod Succ [Solu-Medrol] Med 02/24/19 07:38 Discontinued 125 mg IV NOW ONE Ondansetron [Zofran] Med 02/24/19 09:36 Ordered 4 mg IV Q4H PRN PRN Aerosol Treatments Routine Oth 02/24/19 07:38 Completed Aerosol Treatments Stat Oth 02/24/19 07:38 Completed Oxygen Device Routine Ot 02/24/19 09:37 Active Oxygen Device Stat Ot 02/24/19 07:37 Completed Telemetry [OM.EQ] Routine Ot 02/24/19 09:36 Active EKG [EKG] Stat Ther 02/24/19 07:37 Ordered Transfer/Admit Order [TRANSFER] Routine Transfer 02/24/19 09:40 Ordered Result Diagrams: 02/24/19 07:53 02/24/19 07:53 - REASSESSMENT Reassessment #1 Time Reassessed: 09:47 Status: improving (Givne duoneb and O2 and IVF. Dr. Eng came to see patient in ED> Patient's vitals and WBC meet criteria for sepsis, however, Dr. Eng does not believe she is septic and does not wish for me to give antbiotics. I inquired about lasix for CHF, he wishes to consult Dr. Teran and wait a while.) - EKG 1 Time of EKG reading by physician:: 07:30 EKG Read and Signed by:: Haresh Mendez EKG Interpretation (*Must complete 3 of following elements*): Abnormal Rate: 100 Rhythm: sinus tachy Barry: normal QRS: RBB (right hemiblock), LVH, other (LAE) MT Interval: normal ST Wave: normal Prior EKG Comparison: unchanged from prior (02/01/19) Departure - Departure Date of Disposition Decision: 02/24/19 Time of Disposition Decision: 09:49 DIAGNOSIS: Dyspnea and respiratory abnormalities, Acute alteration in mental status Acute exacerbation of congestive heart failure Qualifiers: Heart failure type: right-sided Qualified Code(s): I50.813 - Acute on chronic right heart failure Leukocytosis Qualifiers: Leukocytosis type: unspecified Qualified Code(s): D72.829 - Elevated white blood cell count, unspecified Disposition: ADMITTED INPATIENT 09 Certified Medical Emergency: Emergent Condition: Fair - Critical Care Note This patient required my direct & personal management of CC.: Yes Total Time (mins): 45 Critical Care Statement: This patient required my direct personal management to treat or rule out processes, the absence of which, could potentiallly result in sudden, clinically significant life or limb threatening deterioration. Attestation - Physician/ ANTONIO Attestation Patient care was provided by Advanced Practice Provider:: No The physician spent face to face time with patient:: Yes Advanced Practice Provider documentation review:: Supervising physician onsite and consulted in the evaluation and care of this patient. The physician did have a face to face encounter with the patient.
[2019-02-24 08:20] LABS: BE 5.5 mmoll (-3.0-3.0); BLOOD TYPE ARTERIAL; HCO3-(ACT) 29.1 mmoll (20.0-26.0); METHB 1.2 % (0.0-1.5); O2(CT) 11.4 mL/dL (15.0-23.0); PCO2(98.6) 35 mmHg (35-45); PO2(98.6) 56 mmHg (60-100); SAMPLE BLOOD; SAO2 93.2 % (95.0-100.0); pH(98.6) 7.52 (7.35-7.45)
[2019-02-24 08:23] LABS: ALLEN TEST NO; MODALITY CANNULA; O2HB 89.7 % (95.0-99.0)
[2019-02-24 08:40] LABS: BASO# 0.03 X1000 (0.0-0.2); BASO% 0.1 % (0.0-0.8); EOS# 0.13 X1000 (0.0-0.7); EOS% 0.5 % (0.0-10.0); HEMATOCRIT 29.8 % (37.0-47.0); HEMOGLOBIN 8.9 g/dL (12.0-16.0); IMM GRAN# 0.18 X1000 (0.0-0.04); IMM GRAN% 0.7 % (0.0-0.5); LYMPH% 3.3 % (20.5-51.1); MCH 25.5 PG (27-31); MCHC 29.9 g/dL (33-37); MCV 85.4 FL (81-99); MONO% 4.4 % (1.7-9.3); MPV 9.4 FL (7.4-10.4); NEUT# 24.76 X1000 (1.4-6.5); PLT 300 X1000 (130-400); RBC 3.49 XMIL (4.2-5.4); RDW 18.9 % (11.5-14.5)
[2019-02-24 08:45] LABS: URINE SOURCE CATH
[2019-02-24 08:52] LABS: ALB/GLOB RATIO 0.7; ALBUMIN 2.6 g/dL (3.5-5.0); CALCIUM 8.9 mg/dL (8.8-10.2); CREATININE 1.1 mg/dL (0.5-0.9); MAGNESIUM 1.8 mg/dL (1.5-2.7); POTASSIUM 3.8 mmol/L (3.5-5.1); TOTAL BILIRUBIN 0.34 mg/dL (0.20-1.00); TOTAL PROTEIN 6.1 g/dL (6.3-8.3)
[2019-02-24 08:55] LABS: INR 1.12; PROTIME 15.3 Seconds (11.0-16.0)
[2019-02-24 08:56] LABS: BILIRUBIN URINE NEGATIVE (NEGATIVE); BLOOD URINE MODERATE (NEGATIVE); COLOR YELLOW; GLUCOSE URINE NEGATIVE (NEGATIVE); KETONE URINE NEGATIVE (NEGATIVE); LEUKOCYTES URINE NEGATIVE (NEGATIVE); NITRITE URINE NEGATIVE (NEGATIVE); PH URINE 5.5; PROTEIN URINE 30 mg/dL (NEGATIVE); SP GRAVITY URINE 1.018; TURBIDITY URINE CLEAR (CLEAR); UR EPITHELIAL CELLS <10 /HPF (<10); URINE BACTERIA NEGATIVE /HPF; URINE RBC <10 /HPF (<10); URINE WBC <10 /HPF (<10); UROBILINOGEN URINE NORMAL (NORMAL)
[2019-02-24] MEDS ORDERED: TYLENOL PO PRN (09:36)
[2019-02-24] MEDS ORDERED: ZOFRAN IV PRN (09:36)
--- NOTE | 2019-02-24 10:17 | EKG Report ---
Test Performed on : 02/24/2019 07:25:18 AM Test Reason : dyspnea Blood Pressure : / mmHG Vent. Rate : 100 BPM Atrial Rate : 100 BPM P-R Int : 154 ms QRS Dur : 102 ms QT Int : 356 ms P-R-T Axes : 023 -05 005 degrees QTc Int : 459 ms Normal sinus rhythm. Possible Left atrial enlargement Incomplete right bundle branch block Left ventricular hypertrophy Abnormal ECG When compared with ECG of 24-JAN-2019 09:18, (Unconfirmed) Criteria for Anterior infarct are no longer present T wave inversion now evident in Anterior leads Unconfirmed Result
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
[2019-02-24] MEDS ORDERED: DUONEB (A & A) INH PRN (14:45)
[2019-02-24] MEDS: DUONEB (A & A) INH SCH ×2 (15:23→21:03)
[2019-02-24] MEDS: ZITHROMAX 500 MG/NS 500 MG/250 ML IVPB IV SCH (17:53)
[2019-02-24] MEDS: SOLU-MEDROL IV SCH ×2 (17:54→22:12)
[2019-02-24] MEDS: LOVENOX SUBQ SCH (17:54)
--- NOTE | 2019-02-24 20:58 | PULMONOLOGY CONSULTATION ---
DATE: 02/24/2019 REQUESTING PHYSICIAN: MD Dr. Lionel Dang. REASON FOR CONSULTATION: Pulmonary fibrosis. HISTORY OF PRESENT ILLNESS: Ms. Diaz is a 68-year-old white female with pulmonary fibrosis, who has been followed by Dr. Fab Mas. The patient has elected to be transferred to my clinic, but has not yet made this transition. The patient was seen in the hospital following a steroid taper with [id number] respiratory failure 01/26/2019. The patient also had hemoptysis but was on Eliquis. The patient's Eliquis was discontinued while she was actively coughing up blood, and her steroids were augmented. She had significant improvement in her pulmonary status and radiographic findings. The patient was discharged home on 01/31/2019. The patient was initially on prednisone 30 mg a day, but at the time of this admission was back to 10 mg per day. Due to blood loss anemia, she has not restarted her Eliquis. Over the last several days she has had increased cough, fevers over 100 degrees with increasing shortness of breath. Her oxygen saturation was noted to be in the 70s and she was admitted through the emergency room. PAST MEDICAL HISTORY: Problem list: 1. Pulmonary fibrosis. There may be a steroid component, so it is not completely clear that this is idiopathic. 2. Pulmonary hypertension. 3. Chronic tachycardia. 4. Leukocytosis. 5. History of diaphragmatic hernia. 6. Iron-deficiency anemia. 7. History of deep vein thrombosis. SOCIAL HISTORY: The patient is a never-smoker and a nondrinker. FAMILY HISTORY: Negative for lung diseases. Positive for hypertension and breast cancer. REVIEW OF SYSTEMS: As noted in the HPI. PHYSICAL EXAMINATION: Physical exam reveals a well-developed, well-nourished white female resting comfortably in no distress. She has been afebrile during this hospitalization. BP 154/76, heart rate 88, respiratory rate 20, oxygen saturation 98% on 3.5 L per nasal cannula. HEENT: Pupils are equal and reactive. Oropharynx is clear. Neck is supple. Chest reveals rhonchi bilaterally which do not completely clear with cough. There are crackles in both lung bases. Cardiac exam: S1, S2 with prominent PMI. Abdomen is soft and without hepatosplenomegaly. Extremities reveal trace to 1+ peripheral edema. LABORATORY DATA: ProBNP is elevated at 35,000. C-reactive protein is markedly elevated at 170. It was measured at 90 on 01/26/2019 and dropped to 30 following initiation of steroids. Prior connective tissue cascade negative. Arterial blood gas on 4 L per nasal cannula: PH 7.52, pCO2 of 35, pO2 of 56. DIAGNOSTIC DATA: Chest x-ray reveals infiltrates in the right base and on the left. These are slightly more prominent than on 01/30/2019. IMPRESSION: A 68-year-old with: 1. Pulmonary fibrosis. 2. Dnasl-ha-endcekz hypoxemic respiratory failure. 3. Fevers. 4. Audible rhonchi. 5. History of deep vein thrombosis. 6. Pulmonary hypertension. DISCUSSION: A 68-year-old with problems as outlined above. The patient's CRP is significantly elevated and may be due to an underlying connective tissue disease process, although she has had some fevers and chills. She does have pulmonary hypertension, but her current presentation does not appear to be simply decompensation from a cardiac standpoint; however, her pulmonary hypertension can be playing a role in her overall decline. RECOMMENDATIONS: 1. Initiate antibiotics. I will cover staphylococcus, gram-negative cocci and atypical. 2. Augment immunosuppression, with followup CRP in the near future. 3. Check an anti-GBM level, ANCA level, CH50, C3 levels and C4 levels. 4. Continue oxygen for hypoxemic respiratory failure. 5. Recommend modified barium swallow early next week to ensure aspiration is not a component of her current picture. cc: MD Lionel Ferreira MD
[2019-02-24] MEDS: SEPTRA DS PO SCH (22:11)
[2019-02-24] MEDS: LASIX PO SCH (22:12)
[2019-02-25] MEDS: DUONEB (A & A) INH SCH ×4 (02:32→21:24)
[2019-02-25] MEDS: SOLU-MEDROL IV SCH ×4 (05:18→21:13)
[2019-02-25 07:00] LABS: HEMATOCRIT 30.9 % (37.0-47.0); MCH 25.8 PG (27-31); MCHC 29.1 g/dL (33-37); MCV 88.5 FL (81-99); MPV 9.6 FL (7.4-10.4); RBC 3.49 XMIL (4.2-5.4); WBC 18.14 X1000 (4.8-10.8)
[2019-02-25 07:44] LABS: ALB/GLOB RATIO 0.8; ALBUMIN 2.8 g/dL (3.5-5.0); CALCIUM 8.6 mg/dL (8.8-10.2); CREATININE 1.1 mg/dL (0.5-0.9); PHOSPHORUS 4.5 mg/dL (2.7-4.5); POTASSIUM 3.5 mmol/L (3.5-5.1); TOTAL BILIRUBIN 0.22 mg/dL (0.20-1.00); TOTAL PROTEIN 6.2 g/dL (6.3-8.3)
[2019-02-25] MEDS: PRILOSEC PO SCH (08:23)
[2019-02-25] MEDS: LASIX PO SCH ×2 (08:23→21:12)
[2019-02-25] MEDS: PAXIL PO SCH (08:24)
[2019-02-25] MEDS: FERROUS SULFATE PO SCH (08:24)
[2019-02-25] MEDS: SEPTRA DS PO SCH ×2 (08:24→21:12)
[2019-02-25] MEDS: PRINIVIL PO SCH (08:27)
[2019-02-25] MEDS: ZEBETA PO SCH ×2 (08:29→09:24)
[2019-02-25] MEDS ORDERED: PREDNISONE PO SCH (09:00)
--- NOTE | 2019-02-25 10:21 | PROGRESS NOTE ---
DATE: 02/25/2019 SUBJECTIVE: The patient is perfectly fine today. She is not struggling to breathe. She is calm, relaxed. Both of her sons are there at the bedside and we had an extended conversation regarding her long-term prognosis and potential causes for her acute decline. OBJECTIVE: Vital Signs: 97.6, 95, 16, 153/61, 94% saturated on a 3 L nasal cannula. General: The patient's lungs are clear in the upper peralta. There are dry crackles in the bases on both sides. Extremities: Show no peripheral edema. Face: She does have some slight periorbital edema which seems to be more of a cushingoid effect than it does a true fluid retention. LABORATORY DATA: White cell count is 18,000, hemoglobin is 9.0, BUN 38, creatinine 1.1. ASSESSMENT AND PLAN: 1. I have read Dr. Teran's note in regard to the patient's acute respiratory failure. He has started antibiotics and steroids and she seems to be better today. We will continue this treatment regimen. I would like to see her on a stable regimen involving all medications prior to discharge. 2. I do not have a note on the chart by Cardiology yet, but hopefully they can address the questions that we have in regard to her elevated proBNP and troponin as well as the status of her valve and whether any type of repair would be helpful to her in the short term or the jail. 3. I have instituted low-dose lisinopril and bisoprolol to see how she tolerates this. 4. Dr. Ramachandran is looking into her leukocytosis. I believe that there was a workup in [place] after she fractured her hip. I do not have the results of that workup, but I do know she did not have any type of bone marrow biopsy at that point. 5. The patient's home health nurse had somehow obtained a consult with her own hospice company yesterday. [facility] had called the day before yesterday with a request to do an extra visit out there, which I told him she did not need because I had already been in contact with the family in regard to medication adjustments. More than an hour later, I had a call from [facility] that said they wanted to do a hospice consult again, which I told him I did not want to do at the present time but they nevertheless contacted the family and carried this through on their own. cc: Lionel Eng MD
[2019-02-25] MEDS: ZITHROMAX 500 MG/NS 500 MG/250 ML IVPB IV SCH (17:14)
[2019-02-25] MEDS: LOVENOX SUBQ SCH (17:14)
--- NOTE | 2019-02-25 18:51 | CARDIOLOGY CONSULTATION ---
DATE: 02/25/2019 CHIEF COMPLAINT ON PRESENTATION: Low oxygen, shortness of breath . HISTORY OF PRESENT ILLNESS: Ms. Diaz is a 68-year-old white female with a history of pulmonary fibrosis on chronic oxygen therapy at home. She presented for evaluation of shortness of breath that has been worsened over the last few days, and noted drops in O2 saturation at home. She was subsequently transported to the emergency room on the . She is not aware of any recent increase in cough but has noted some low-grade fevers around 100.1. She has not had any dysuria. No chest pain. She denies any lower extremity edema. PAST MEDICAL HISTORY: 1. Significant for pulmonary fibrosis. It appears she has seen the [facility] previously regarding this. Last visit was in June [address] Fab Mas. Unsure of any evaluations or interventions that were done at that time. 2. Hypertension. 3. Hyperlipidemia. 4. Depression/anxiety. 5. Chronic iron deficiency anemia. 6. Chronic leukocytosis. 7. Chronic tachycardia. SOCIAL HISTORY: She is . Does not use alcohol. She has sitters in the family who sit with her throughout the day and night. FAMILY HISTORY: Significant for hypertension. REVIEW OF SYSTEMS: A 10-system review of systems is negative except for those mentioned in HPI. PHYSICAL EXAMINATION: Vital Signs: Afebrile. Heart rate 86. Her blood pressure most recently was 154/75. She seems to have significantly elevated systolics in the 140s to 170 range during this hospitalization. Her O2 saturation currently is 92% on 2 L. General: No acute distress. Very pleasant. She does not appear to be significantly tachypneic or uncomfortable secondary to dyspnea. HEENT: Oropharynx is moist. Normal dentition. Eye examination: [place] conjunctivae. White sclerae. Neck: Examination shows no obvious thyromegaly or thyroid tenderness. Cardiovascular: She sounds to be in a regular rate and rhythm. I do not hear any obvious murmur. She has no S3. She has no lower extremity edema, and she has warm and well- perfused lower extremities. Chest: Noted for coarse breath sounds somewhat diffusely throughout all lung peralta. Abdomen: Soft, nontender, nondistended. She has no obvious organomegaly. Skin Exam: Warm and dry throughout without any rashes. Neurologic: She is moving all extremities well. She has a left-sided foot drop, otherwise no obvious lateralizing deficits Psychiatric: Alert, oriented and pleasant. She has a normal mood and affect. PERTINENT DATA: Her chest x-ray shows evidence for advanced pulmonary fibrosis. Her EKG shows sinus tachycardia at a rate of around 100 beats per minute. Otherwise relatively unremarkable. She had a white count of 27 on presentation. Currently it is 18. Her hematocrit is 30, platelet count 300. Sodium 144, potassium 3.5, BUN 38, creatinine 1.1. Her albumin level is 2.8. Her proBNP is greater than 35,000 with a CRP of 170. Her troponin is 0.142. Her urinalysis was unremarkable. Her echocardiogram which was checked in January 2019 demonstrated a markedly hyperdynamic LV function, moderate left ventricular hypertrophy, and probable severe tricuspid regurgitation. It was a very eccentric jet and difficult to identify. I reviewed the study. In addition, she had severe pulmonary hypertension with PA pressures of around 100 to 110 mmHg. ASSESSMENT: Mr. Diaz is a 68-year-old female with advanced pulmonary fibrosis and pulmonary hypertension. PLAN: Currently I do not have any acute cardiovascular recommendations. Her tricuspid regurgitation seems to be secondary to her severe pulmonary hypertension. Intervening on the tricuspid valve will not likely have a clinically significant impact, considering the extent of her lung disease. In addition, she is not edematous today on examination. She is significantly hypertensive, and I would consider adding in a calcium channel jacqueline at this point. We will put her on Norvasc 2.5 mg daily to start with. She is on oral Lasix, which seems reasonable at this point. cc: MD Lionel Turner MD MTDD
--- NOTE | 2019-02-25 20:01 | PULMONOLOGY PROGRESS NOTE ---
DATE: 02/25/2019 SUBJECTIVE: The patient is awake, alert, and conversant. She reports she feels significantly better. She denies shortness of breath. OBJECTIVE: Vital Signs: The patient has been afebrile for the last 24 hours. Blood pressure 151/69, heart rate 94, respiratory rate 20, oxygen saturation 92% on 3 L per nasal cannula. HEENT: Pupils are equal and reactive. Oropharynx is clear. Neck: Supple. Chest: Reveals bilateral crackles. Cardiac: S1, S2. Abdomen: Soft. Extremities: Reveal trace ankle edema. LABORATORIES: Sodium 144, potassium 3.5, chloride 104, bicarbonate 24, BUN 28, creatinine 1.1. White blood count 18.1, hemoglobin 9.0, platelet count 300,000. IMPRESSION: 68-year-old with: 1. Pulmonary fibrosis. 2. Acute on chronic hypoxemic respiratory failure. 3. Fevers prior to presentation. 4. History of deep vein thrombosis. 5. Pulmonary hypertension. DISCUSSION: A 68-year-old with problems outlined above. Her CRP is elevated. She has significantly improved with steroids and antibiotics. RECOMMENDATIONS: 1. Continue current steroid and antibiotic dosing. 2. Followup CRP level and chest x-ray tomorrow. 3. Consider modified barium swallow early next week. cc: MD Lionel Ferreira MD
[2019-02-26] MEDS: SOLU-MEDROL IV SCH ×6 (02:06→23:39)
[2019-02-26] MEDS: DUONEB (A & A) INH SCH ×4 (02:52→21:39)
--- NOTE | 2019-02-26 08:32 | Diag Imaging Result Doc PS360 ---
CHEST-2 VIEWS - 02/26/2019 INDICATION: abnormal exam COMPARISON: 02/24/2019 FINDINGS: No significant change in the extensive bilateral interstitial pulmonary fibrosis. Heart size remains enlarged. No pneumothorax or pleural effusion. IMPRESSION: Pulmonary fibrosis. Cardiomegaly. Electronically signed by Aleksander Gomes 02/26/2019 8:30 AM
[2019-02-26] MEDS ORDERED: NORVASC PO SCH (09:00)
[2019-02-26] MEDS: ZEBETA PO SCH (09:21)
[2019-02-26] MEDS: SEPTRA DS PO SCH ×2 (09:22→20:25)
[2019-02-26] MEDS: LASIX PO SCH ×2 (09:22→20:25)
[2019-02-26] MEDS: FERROUS SULFATE PO SCH (09:22)
[2019-02-26] MEDS: PAXIL PO SCH (09:23)
[2019-02-26] MEDS: PRINIVIL PO SCH (09:23)
[2019-02-26] MEDS: PRILOSEC PO SCH (09:23)
--- NOTE | 2019-02-26 09:35 | PROGRESS NOTE ---
DATE: 02/26/2019 SUBJECTIVE: The patient voices no complaints. She states that she is breathing well at baseline. She is resting in the bed, has not been up much, if any. OBJECTIVE: Vital Signs: Temperature 97.5, pulse rate of 86, respiratory rate 20, blood pressure 161/79, she is 99% saturated on 3 L nasal cannula. Lungs: The patient's lungs are perfectly clear. She is moving air quite well. She does have crackles in the bases, but this is an old and stable finding. Neuropsychiatric: The patient is alert, oriented, conversive, and appropriate. LABORATORY DATA: The patient did not have any laboratory drawn today. ASSESSMENT AND PLAN: 1. The patient's acute respiratory failure has seemed to have resolved. She is on dual antibiotics, including azithromycin and Septra. She is still on intravenous steroids at a reasonably high dose, and seems to be doing really well with this as far as her breathing goes. 2. Dr. Patricio Lau was consulted on the patient yesterday, and added a measure of blood pressure control. I think that her blood pressure is adequately controlled. I have noted that her pulse rate is down since starting on bisoprolol. I think due to her known diastolic dysfunction, despite the tricuspid valve, that she tolerates a lower heart rate well. This may be partially due to the beta-jacqueline, but may also be contingent upon her overall mood and anxiety level, which seems to be under control during the hospitalization. 3. Dr. Ramachandran was consulted due to her leukocytosis. 4. It is likely that discharge home will occur sometime in the next few days. I informed the patient of this. We may have to entertain the possibility of different home health service based on previous interactions. If the patient is happy with [facility], I will tolerate working with them at the present time. Most of all, I want the patient to be comfortable with those who are providing care for her. cc: Lionel Eng MD
--- NOTE | 2019-02-26 11:43 | HEMO/ONC CONSULTATION ---
DATE: 02/24/2019 REQUESTING PHYSICIAN: Dr. Eng. REASON FOR CONSULTATION: Leukocytosis. HISTORY OF PRESENT ILLNESS: The patient is a 68-year-old female with a history of pulmonary fibrosis, followed by Dr. Tabares. She has pulmonary hypertension. She was admitted to the hospital due to increasing lethargy and hypoxia. She reportedly has had significant leukocytosis for a little while which has further worsened. We have been consulted to rule out a bone marrow disorder. No complaints of recent fevers, chills, lymphadenopathy, or hepatosplenomegaly. PAST MEDICAL HISTORY: 1. Pulmonary fibrosis. 2. Chronic hypoxemia and COPD. 3. Hypertension. 4. Depression. 5. Chronic iron deficiency from blood loss. PAST SURGICAL HISTORY: Left hip replacement. SOCIAL HISTORY: Patient denies smoking or alcohol intake. She has a . She has good family support. FAMILY HISTORY: Noncontributory. REVIEW OF SYSTEMS: Positive for cough, shortness of breath, wheezing, tiredness, fatigue. No chest pain, headaches, blurry revision, nausea, vomiting, abdominal pain. All other review of systems are negative. PHYSICAL EXAMINATION: General: Patient is well developed, in no acute distress. Vital Signs: Temperature 98.1 degrees, pulse 98, blood pressure 154/76. Eyes: PERRLA. Anicteric. ENT: Mucous membranes are moist. No thrush. Lymph node survey negative. Cardiac: Regular rate and rhythm. Normal S1, S2. No murmurs. Lungs: Bilateral basal crackles. No rhonchi or wheezing. Abdomen: Soft, nontender, without hepatosplenomegaly or masses. Neurological: Alert and oriented x3. No focal motor deficits. Skin: No ecchymosis or rash. LABORATORY DATA: White count 27.2, hemoglobin 8.9, hematocrit 29.8, MCV 85, platelets 300,000. ANC 24.7, ALC 0.9. Immature granulocytes 0.18. BUN 30, creatinine 1.1. LFTs are normal. ASSESSMENT AND PLAN: 1. Neutrophilic leukocytosis: It appears that she has had leukocytosis for a little while, but this is worse now. Check LDH, C-reactive protein, and BCR-ABL to rule out a bone marrow disorder. We will plan further management based on these labs. 2. Pulmonary fibrosis and respiratory failure: Dr. Teran has been consulted. Broad-spectrum antibiotics. 3. Anemia: Check anemia profile. cc: MD Lionel Dc MD
--- NOTE | 2019-02-26 13:37 | CARDIOLOGY PROGRESS NOTE ---
DATE: 02/26/2019 SUBJECTIVE: Ms. Diaz has no complaints today, other than continued mild shortness of breath above her baseline. OBJECTIVE: Vitals: She is afebrile. Her heart rate is 81, blood pressure 156/72. General: She is in no acute distress. Cardiovascular: She sounds to be in a regular rate and rhythm. She has no murmurs. No lower extremity edema. Chest: Exam has mild diffuse rales. Abdomen: Soft, nontender. PERTINENT DATA: Her white count yesterday was 18. She has no chemistry data from today other than a CRP which is down to 57 from 170 on 02/24. She had a chest x-ray demonstrating pulmonary fibrosis. ASSESSMENT: Ms. Diaz is a 68-year-old female with pulmonary fibrosis and pulmonary hypertension. PLAN: I have increased her Norvasc to 5 mg daily. I have no further acute cardiovascular recommendations. Her CRP seems to have improved markedly on antibiotics as well as some Solu- Medrol. I am unclear of the exact etiology of this elevation, but overall she does seem to be improving. cc: MD Lionel Turner MD
[2019-02-26] MEDS: ZITHROMAX 500 MG/NS 500 MG/250 ML IVPB IV SCH (16:37)
[2019-02-26] MEDS: LOVENOX SUBQ SCH (16:37)
--- NOTE | 2019-02-26 20:47 | PULMONOLOGY PROGRESS NOTE ---
DATE: 02/26/2019 SUBJECTIVE: The patient is awake, alert, and conversant. She is without specific complaints today. OBJECTIVE: Vital signs: Oxygen saturation continues to improve and is now 100% on 4 L per nasal cannula. Blood pressure 144/53, heart rate 79, respiratory rate 18, oxygen saturation 100%. HEENT: Pupils are equal and reactive. Oropharynx is clear. Neck: Is supple. Chest: Reveals crackles in both lung bases. Cardiac: S1, S2. Abdomen: Is soft. Extremities: Are without edema. LABORATORIES: C3 level and C4 levels are normal. Chest x-ray reveals stable bilateral infiltrates in the left midlung zone and right base with generous cardiac silhouette. IMPRESSION: A 68-year-old with 1. Pulmonary fibrosis. 2. Acute on chronic hypoxemic respiratory failure. 3. Fevers. 4. Leukocytosis. 5. History of pulmonary hypertension. 6. Deep vein thrombosis. DISCUSSION: A 68-year-old with problems outlined above. RCRP has decreased with steroids and her oxygenation has improved. RECOMMENDATIONS: 1. Continue steroids and antibiotics. 2. Follow up laboratories tomorrow. 3. Consider modified barium swallow but she continues to clinically improve. cc: MD Lionel Ferreira MD
[2019-02-27] MEDS: DUONEB (A & A) INH SCH ×4 (03:38→21:23)
[2019-02-27] MEDS: SOLU-MEDROL IV SCH (05:09)
[2019-02-27 07:41] LABS: CALCIUM 8.4 mg/dL (8.8-10.2); CREATININE 1.3 mg/dL (0.5-0.9); POTASSIUM 4.5 mmol/L (3.5-5.1)
[2019-02-27 07:52] LABS: BASO# 0.04 X1000 (0.0-0.2); BASO% 0.2 % (0.0-0.8); EOS# 0.07 X1000 (0.0-0.7); EOS% 0.3 % (0.0-10.0); HEMATOCRIT 31.7 % (37.0-47.0); IMM GRAN# 0.23 X1000 (0.0-0.04); IMM GRAN% 1.1 % (0.0-0.5); LYMPH# 0.47 X1000 (1.2-3.4); LYMPH% 2.3 % (20.5-51.1); MCH 25.6 PG (27-31); MCHC 28.4 g/dL (33-37); MCV 90.3 FL (81-99); MONO# 0.71 X1000 (0.11-0.59); MONO% 3.5 % (1.7-9.3); MPV 9.8 FL (7.4-10.4); NEUT# 18.92 X1000 (1.4-6.5); NEUT% 92.6 % (42.2-75.2); PLT 328 X1000 (130-400); RBC 3.51 XMIL (4.2-5.4); RDW 19.6 % (11.5-14.5); WBC 20.44 X1000 (4.8-10.8)
[2019-02-27] MEDS: FERROUS SULFATE PO SCH (08:22)
[2019-02-27] MEDS: PRINIVIL PO SCH (08:23)
[2019-02-27] MEDS: NORVASC PO SCH (08:23)
[2019-02-27] MEDS: LASIX PO SCH ×2 (08:23→22:23)
[2019-02-27] MEDS: SEPTRA DS PO SCH ×2 (08:24→22:23)
[2019-02-27] MEDS: PRILOSEC PO SCH (08:24)
[2019-02-27] MEDS: PAXIL PO SCH (08:24)
[2019-02-27] MEDS: ZEBETA PO SCH (08:31)
[2019-02-27 08:34] LABS: IRON SATURATION 16 %; TIBC 199 ug/dL; TOTAL IRON 32 ug/dL (49-151); UNBOUND IRON 167 ug/dL (112-346)
[2019-02-27 08:55] LABS: FERRITIN 575 ng/mL (13-150)
[2019-02-27] MEDS: PREDNISONE PO SCH ×2 (09:11→22:23)
--- NOTE | 2019-02-27 09:42 | PROGRESS NOTE ---
DATE: 02/27/2019 SUBJECTIVE: The patient has no complaints. She is breathing well. She denies any coughing. She was able to sit up in a chair yesterday for several hours and did fine with that. OBJECTIVE: Vital Signs: Temperature 97.6, pulse rate 86, respirations 20, blood pressure 150/77, 93% saturated on 3 L nasal cannula. General: The patient is alert, oriented, conversive and appropriate. Lungs: Clear in the upper lobes. There are crackles in the bases. She has good air movement. She is not struggling. Cardiovascular: Regular at approximately 84 beats per minute. Extremities: No peripheral edema. LABORATORY: White cell count is 20.4, hemoglobin is 9, BUN 49, creatinine 1.3, potassium is 4.5. ASSESSMENT AND PLAN: 1. The patient's acute respiratory failure has resolved. She is on azithromycin and Septra as well as IV steroids. I am going to take the liberty of changing her to p.o. on all of her antibiotics and also switching from 60 mg of Solu-Medrol IV 4 times daily to 40 mg of prednisone twice a day. If Dr. Teran would like to alter that steroid dose, I would be perfectly fine with that. 2. We have made some strides in control of heart rate and blood pressure. I am going to increase her lisinopril slightly today to get slightly better blood pressure control. 3. Dr. Ramachandran and his team are working on laboratories in regard to leukocytosis. 4. Another slight increase in the patient's BUN and creatinine. I am going to decrease her Lasix dose. I think she would do fine at home on and we will monitor this progress. I do not think fluid overload is a major component of her respiratory failure at this point. 5. Proposed date of discharge is in 48-72 hours. cc: Lionel Eng MD
[2019-02-27 11:24] LABS: ANTINEUTROPHIL CYTOPLASMIC AB SEE COMMENTS
--- NOTE | 2019-02-27 12:29 | HEMO/ONC PROGRESS NOTE ---
DATE: 02/27/2019 SUBJECTIVE: The patient says she is slowly feeling better. The patient has no new complaints at this time. OBJECTIVE: Vital Signs: Temperature 97.6 degrees, heart rate 86, respiratory rate 21, blood pressure 150/77, saturation 93% on nasal cannula. General: The patient is awake, sitting up in chair. No acute distress noted. HEENT: Anicteric. Pupils PERRLA. Mucous membranes moist. Cardiovascular: S1, S2. Regular rate and rhythm. Chest: Bilateral breath sounds diminished bilaterally. Abdomen: Soft, nontender. Bowel sounds present in all 4 quadrants. Neurologic: Alert and oriented x3. No focal deficits noted. LABORATORY DATA: White cell count 20.4, hemoglobin 9.2, hematocrit of 31.7, platelets are 328,000. Potassium 4.5, BUN 49, creatinine 1.3, ferritin 575, LDH 422. ASSESSMENT AND PLAN: 1. Leukocytosis: At this time, BCR-ABL is still pending. Awaiting on those results to rule out any bone marrow disorder at this time. We will continue to monitor and watch for those labs. 2. Pulmonary fibrosis and respiratory failure: Continue O2 as per primary medical team and Pulmonology. 3. Anemia: Hemoglobin and hematocrit stable at 9.2 and 31.7. Iron indices were adequate at this time. We will continue to monitor closely. Transfuse as needed. Dictated by SMITHA Bunch for Jose Ramachandran MD Patient seen and examined. As above. Leukocytosis has somewhat improved. C- reactive protein is significantly elevated. Leukocytosis may be a leukemoid reaction, however the LDH was elevated. We have checked BCR ABL and results are pending. Continue current management. Jose Ramachandran M.D. [facility]
[2019-02-27] MEDS: ZITHROMAX PO SCH (17:14)
[2019-02-27] MEDS: LOVENOX SUBQ SCH (17:15)
--- NOTE | 2019-02-27 22:08 | PULMONOLOGY PROGRESS NOTE ---
DATE: 02/27/2019 SUBJECTIVE: The patient is awake, alert, and conversant. She reports she has had a good day. She has been out of the bed briefly. OBJECTIVE: Vital Signs: BP 141/61, heart rate 79, respiratory rate 21, oxygen saturation 100% on nasal cannula. HEENT: Pupils are equal and reactive. Oropharynx is clear. Neck: Supple. Chest: Reveals good air entry bilaterally with crackles in both lung bases. Cardiac: S1, S2. Abdomen: Soft. Extremities: Reveal trace edema. LABORATORIES: White blood count 20,000, hemoglobin 9.0, platelet count 328,000. Sodium 144, potassium 4.5, chloride 109, bicarbonate 22, BUN 49, creatinine 1.3 PLAN: [*]anticipate discharge in the next 2 to 3 days. cc: MD Lionel Ferreira MD
[2019-02-28] MEDS: DUONEB (A & A) INH SCH ×5 (03:19→21:53)
--- NOTE | 2019-02-28 08:17 | PROGRESS NOTE ---
DATE: 02/28/2019 SUBJECTIVE: The patient states she is breathing well. She had a good night. She was able to get up in the chair yesterday for a while and seemed to do okay. She has no complaints. OBJECTIVE: Vital Signs: 97.8, 84, 20, 149/67, 97% saturated on 3 L nasal cannula. Physical Examination: The patient's upper lobes are clear. There are no wheezes or rounds. She has good air movement. Bases have crackles, which is a chronic finding. Cardiovascular is regular. Extremities: No edema. Neuropsychiatric: The patient is alert, oriented, conversive, and appropriate. ASSESSMENT AND PLAN: 1. The patient's acute respiratory failure superimposed on chronic respiratory failure with hypoxemia has more or less resolved. She seems to be operating at or above baseline. We changed her to oral prednisone yesterday and she seemed to tolerate that well. She is still on oral antibiotics as well. 2. The patient's blood pressure and heart rate control are improved on her present regimen. I think this is adequate blood pressure control. 3. Dr. Ramachandran and his team still have a few studies pending in regard to her chronic leukocytosis. 4. The patient's Lasix was decreased yesterday. I am going to recheck blood work in the morning. If she is stable from a clinical standpoint and lab work looks good, I will likely discharge her in the morning. cc: Lionle Eng MD
--- NOTE | 2019-02-28 09:45 | HEMO/ONC PROGRESS NOTE ---
DATE: 02/28/2019 SUBJECTIVE: The patient's breathing continues to slowly improve. The patient denies any complaints. The patient says she is slightly feeling better. OBJECTIVE: Vital Signs: Temperature 97.8 degrees, heart rate 84, respiratory rate 20, blood pressure 149/67, sat 97% on nasal cannula. General: The patient is awake, lying in bed, no acute distress noted. HEENT: Anicteric. Mucous membranes moist. Cardiovascular: S1, S2. Regular rate and rhythm. Chest: Bilateral breath sounds with crackles bilaterally. Abdomen: Soft, nontender. Bowel sounds present in all 4 quadrants. Neurologic: Alert and oriented x3. No focal deficits noted. LABORATORY DATA: BCR-ABL could not be performed due to hemolyzed specimen. It will be reordered. ASSESSMENT AND PLAN: 1. Leukocytosis. BCR-ABL was not performed due to hemolysis. We re-ordered test. Waiting on those results at this time. At this time, continue to monitor. 2. Pulmonary fibrosis and respiratory failure. Continue recommendations per primary team and Pulmonology. 3. Anemia. Hemoglobin and hematocrit are stable. No signs of bleeding. Transfuse as needed. 4. Supportive care. Protein checks 3 times a day. Patient to get up as much as possible. Dictated by SMITHA Bunch for Jose Ramachandran MD Patient seen and examined. As above. Leukocytosis with significantly elevated C-reactive protein and mildly elevated LDH. BCR ABL could not be performed at [facility] due to hemolyzed specimen. It has been reordered. Continue current management. Jose Ramachandran M.D. cc: Lionel Eng MD [facility]
[2019-02-28] MEDS: PREDNISONE PO SCH ×2 (09:59→20:06)
[2019-02-28] MEDS: NORVASC PO SCH (09:59)
[2019-02-28] MEDS: PAXIL PO SCH (09:59)
[2019-02-28] MEDS: PRILOSEC PO SCH (10:00)
[2019-02-28] MEDS: ZEBETA PO SCH (10:00)
[2019-02-28] MEDS: SEPTRA DS PO SCH ×2 (10:00→20:06)
[2019-02-28] MEDS: LASIX PO SCH ×2 (10:00→20:06)
[2019-02-28] MEDS: PRINIVIL PO SCH (10:00)
[2019-02-28] MEDS: FERROUS SULFATE PO SCH (10:00)
[2019-02-28] MEDS: ZITHROMAX PO SCH (17:22)
[2019-02-28] MEDS: LOVENOX SUBQ SCH (17:22)
--- NOTE | 2019-02-28 20:56 | PULMONOLOGY PROGRESS NOTE ---
DATE: 02/28/2019 SUBJECTIVE: The patient is awake, alert, and conversant. She reports she has had a relatively good day. She is without specific complaints. OBJECTIVE: Vital Signs: The patient has been afebrile for the last 24 hours. Blood pressure 135/59, heart rate 69, respiratory rate 22, oxygen saturation 99% on 3 L per nasal cannula. HEENT: Pupils are equal and reactive. Oropharynx appears clear. Neck: Supple. Chest: Reveals crackles in both lung bases. Cardiac exam: S1-S2. Abdomen: Soft. Extremities: Reveal trace to 1+ peripheral edema. LABORATORIES: C-reactive protein was repeated and has decreased to 16.14. It was 171 on admission. IMPRESSION: A 68-year-old with: 1. Pulmonary fibrosis, which appears to have a steroid responsive component. 2. Acute on chronic hypoxemic respiratory failure. 3. Leukocytosis. 4. Pulmonary hypertension. 5. History of deep vein thrombosis. RECOMMENDATIONS: 1. Continue steroids and antibiotics. 2. At the time of discharge, would continue prednisone 30 mg per day until she follows up in my clinic. 3. Anticipate discharge soon. cc: MD Lionel Ferreira MD
[2019-03-01] MEDS: DUONEB (A & A) INH SCH ×2 (03:42→08:09)
[2019-03-01 06:25] LABS: BASO# 0.02 X1000 (0.0-0.2); BASO% 0.1 % (0.0-0.8); HEMATOCRIT 32.8 % (37.0-47.0); HEMOGLOBIN 9.5 g/dL (12.0-16.0); LYMPH% 2.1 % (20.5-51.1); MCH 25.7 PG (27-31); MCV 88.6 FL (81-99); MONO# 0.66 X1000 (0.11-0.59); MONO% 3.4 % (1.7-9.3); MPV 9.3 FL (7.4-10.4); NEUT# 18.38 X1000 (1.4-6.5); NEUT% 94.4 % (42.2-75.2); PLT 344 X1000 (130-400); RDW 19.6 % (11.5-14.5); WBC 19.46 X1000 (4.8-10.8)
[2019-03-01 06:33] LABS: CALCIUM 8.4 mg/dL (8.8-10.2); CREATININE 1.2 mg/dL (0.5-0.9); POTASSIUM 4.8 mmol/L (3.5-5.1)
[2019-03-01 07:26] VITALS: BP 139/62
[2019-03-01] MEDS: PAXIL PO SCH (08:30)
[2019-03-01] MEDS: NORVASC PO SCH (08:30)
[2019-03-01] MEDS: PREDNISONE PO SCH (08:30)
[2019-03-01] MEDS: SEPTRA DS PO SCH (08:31)
[2019-03-01] MEDS: PRINIVIL PO SCH (08:31)
[2019-03-01] MEDS: FERROUS SULFATE PO SCH (08:31)
[2019-03-01] MEDS: ZEBETA PO SCH (08:31)
[2019-03-01] MEDS: LASIX PO SCH (08:31)
[2019-03-01] MEDS: PRILOSEC PO SCH (08:31)
--- NOTE | 2019-03-01 09:05 | HEMO/ONC PROGRESS NOTE ---
DATE: 03/01/2019 CHIEF COMPLAINT: The patient says she is feeling well at this time. The patient has no new complaints. Shortness of breath continues to improve. OBJECTIVE: Vital Signs: Temperature 98.6 degrees, heart rate 78, respiratory rate 16, blood pressure 139/60, saturation 98% on nasal cannula. General: Patient is awake, lying in bed, no acute distress noted. HEENT: Anicteric. Pupils PERRLA. Mucous membrane moist. Cardiovascular: S1, S2. Regular rate and rhythm. Chest: Bilateral breath sounds with crackles to bilateral bases. Abdomen: Soft, nontender. Bowel sounds present in all 4 quadrants. Neurologic: Alert and oriented x3. No focal deficits noted. LABORATORY DATA: White blood cell count 19.46, hemoglobin 9.5, hematocrit 32.8, platelets are 344. Potassium 4.8, BUN 45, creatinine 1.2, calcium 8.4. ASSESSMENT AND PLAN: 1. Leukocytosis: BCR-ABL has been reordered. Waiting on those results at this time. Continue to monitor. Most likely reactive. 2. Pulmonary fibrosis and respiratory failure: Continue orders per primary team and pulmonology. 3. Anemia: Hemoglobin and hematocrit continue to be stable. No signs of bleeding. Continue to monitor. Transfuse as needed. 4. Deep venous thrombosis prophylaxis: Continue Lovenox as ordered. Continue to have patient get up as much as possible. 5. Supportive care: Continue protein shakes 3 times a day. Continue to have patient get up as much as possible. Plan of care discussed with Dr. Ramachandran. Dictated by SMITHA Bunch for Jose Ramachandran MD cc: SMITHA Bunch MD [facility] P. Weirich, MD [facility]ISION[facility]
--- NOTE | 2019-03-01 09:35 | DISCHARGE SUMMARY ---
ADMISSION DATE: 02/24/2019 DISCHARGE DATE: 03/01/2019 DISCHARGE DIAGNOSES: 1. Acute respiratory failure. 2. Chronic respiratory failure with hypoxemia. 3. Pulmonary fibrosis. 4. Chronic leukocytosis. 5. 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 6. Severe tricuspid regurgitation. 7. Chronic diastolic congestive heart failure. HOSPITAL COURSE: The patient had decompensated at home acutely, was brought to the emergency room and found to be in respiratory failure with decreased responsiveness, worsening hypoxemia, and worsening shortness of breath. After treatment there she seemed to have stabilized a bit, but because she has been dealing with a lot of issues on an outpatient basis it was decided to admit her to the hospital. Consultation with Dr. Patricio Lau, Dr. Chauncey Teran and Dr. Jose Ramachandran were undertaken. Dr. Teran put the patient on antibiotics and accelerated doses of steroids, which was pared down to prednisone 40 mg twice daily at the time of discharge. She was also taking azithromycin and Septra by mouth with improvement in breathing and improvement in her leukocytosis. Dr. Ramachandran was investigating her chronic leukocytosis, but no firm conclusions were drawn by the end of her hospitalization. There were some studies that were pending at that time. It is noted the patient's hemoglobin which had been previously depressed with chronic bleeding due to anticoagulation therapy has now rebounded and her hemoglobin is stable and increasing at 9.5 at the time of discharge. Dr. Patricio Lau made recommendations for better blood pressure control to assist in her chronic diastolic congestive failure. He saw no benefit to pursuing any type of valve replacement due to his very high pulmonary pressures and the patient's overall frailty. All these findings were discussed with the family and with the patient. The patient's hospitalization was somewhat prolonged because we had to assess her on at least a reasonable facsimile of her home medication regimen to determine stability. We got her up in the chair for several days and she seemed to do well. Her oxygen saturations remained improved. Her lung exam was improved. At baseline, she has very good air movement, particularly in the upper lobe. She has crackles in the bases on both sides at baseline as well. The patient's blood pressure medications were adjusted to aid with her diastolic dysfunction. She was put on 2.5 mg of bisoprolol to control heart rate. She was put on 5 mg of lisinopril and 5 mg of amlodipine as vasodilators. She seemed to tolerate this well and her blood pressure was improved. At the time of discharge, the patient's laboratory and vital signs were stable. She was alert and desirous of discharge and I think her stability has been proven. The patient will remain on her present medication regimen until she can follow up with Dr. Teran in about 2 weeks. She is aware that should she have any sign of acute decompensation, she is to call my office immediately. cc: Lionel Eng MD
== END 2019-03-01 10:56 | disposition home health service (06) | DRG 189 ==
LOC: ED 07:19 → 4N 10:28
PROVIDERS: ADMIT Internal Medicine; ATTEND Internal Medicine
CPT/HCPCS: 71010; 71020; 71045; 71046; 80048; 80053; 81001; 81206; 81207; 81208; 82550; 82607; 82728; 82746; 82805; 82948; 83516; 83520; 83540; 83550; 83605; 83615; 83735; 83880; 84100; 84484; 85025; 85027; 85610; 86140; 86160; 86162; 87040; 87275; 87276; 87804; 93005; 94640; 94760; 94761; 96374; 99285; A9270; J0456; J1650; J2930; J7030; J7506; J7512; XXXXX

== ENCOUNTER 2019-03-17 16:55 | Inpatient (IN) ==
[2019-03-17] MEDS ORDERED: ROCEPHIN 1 GM in NS 50 ML IV ONE (18:15)
[2019-03-17 18:31] LABS: BASO# 0.02 X1000 (0.0-0.2); BASO% 0.1 % (0.0-0.8); HEMOGLOBIN 12.6 g/dL (12.0-16.0); IMM GRAN# 0.27 X1000 (0.0-0.04); IMM GRAN% 0.8 % (0.0-0.5); LYMPH# 0.71 X1000 (1.2-3.4); LYMPH% 2.1 % (20.5-51.1); MCH 26.8 PG (27-31); MCHC 31.5 g/dL (33-37); MCV 84.9 FL (81-99); MONO# 0.95 X1000 (0.11-0.59); MONO% 2.8 % (1.7-9.3); MPV 10.2 FL (7.4-10.4); NEUT# 31.59 X1000 (1.4-6.5); NEUT% 94.2 % (42.2-75.2); PLT 235 X1000 (130-400); RBC 4.71 XMIL (4.2-5.4); RDW 21.9 % (11.5-14.5); WBC 33.54 X1000 (4.8-10.8)
[2019-03-17 18:40] LABS: INR 0.89; PROTIME 12.8 Seconds (11.0-16.0); PTT 23.6 Seconds (22.3-41.8)
[2019-03-17 18:41] LABS: URINE SOURCE CATH
[2019-03-17 18:44] LABS: BILIRUBIN URINE NEGATIVE (NEGATIVE); BLOOD URINE TRACE (NEGATIVE); COLOR YELLOW; GLUCOSE URINE NEGATIVE (NEGATIVE); KETONE URINE NEGATIVE (NEGATIVE); LEUKOCYTES URINE NEGATIVE (NEGATIVE); NITRITE URINE NEGATIVE (NEGATIVE); PROTEIN URINE NEGATIVE (NEGATIVE); SP GRAVITY URINE 1.015; TURBIDITY URINE CLEAR (CLEAR); UR EPITHELIAL CELLS <10 /HPF (<10); URINE BACTERIA NEGATIVE /HPF; URINE RBC <10 /HPF (<10); URINE WBC <10 /HPF (<10); UROBILINOGEN URINE NORMAL (NORMAL)
[2019-03-17 18:45] LABS: LYMPHS 4 % (21-51); MONO 1 % (1-9); SEGS 95 % (42-75)
[2019-03-17 18:49] LABS: ALBUMIN 2.5 g/dL (3.5-5.0); CALCIUM 8.6 mg/dL (8.8-10.2); POTASSIUM 4.8 mmol/L (3.5-5.1); TOTAL BILIRUBIN 0.17 mg/dL (0.20-1.00)
--- NOTE | 2019-03-17 19:10 | Diag Imaging Result Doc PS360 ---
EXAM: CT HEAD W/O CONTRAST INDICATION: AMS TECHNIQUE: This exam was performed using automated exposure control, adjustment of mA or kV according to patient size, and/or use of iterative reconstruction technique. COMPARISON: None. FINDINGS: There is moderate diffuse brain atrophy. There is patchy low attenuation in the periventricular and subcortical white matter suggesting moderate microangiopathy. There is no definite acute infarct given the limited sensitivity of CT versus MRI. There is no discrete intracranial mass, mass effect, or intracranial hemorrhage. There is a left mastoid air cell effusion. Surrounding soft tissues and bony structures are essentially unremarkable, otherwise. IMPRESSION: 1.Atrophy and chronic appearing white matter changes. No definite acute intracranial pathology by CT. 2.Left mastoid air cell effusion. Electronically signed by Royal Ellis 03/17/2019 7:08 PM
--- NOTE | 2019-03-17 19:55 | Diag Imaging Result Doc PS360 ---
EXAM: CHEST-1 VIEW INDICATION: AMS TECHNIQUE: One view COMPARISON: 02/26/2019 FINDINGS: There is stable interstitial fibrosis. No new consolidation is identified. There is no discrete pleural fluid collection or pneumothorax. Cardiac silhouette is borderline to mildly prominent but stable. IMPRESSION: Stable pulmonary fibrosis. No definite acute pathology by plain radiograph. Electronically signed by Royal Ellis 03/17/2019 7:53 PM
--- NOTE | 2019-03-17 21:57 | HISTORY AND PHYSICAL ---
PRIMARY CARE PHYSICIAN: Lionel Eng MD CHIEF COMPLAINT: Confusion and shortness of breath for several days. HISTORY OF PRESENTING ILLNESS: A 69-year-old elderly female with a history of multiple medical problems, including pulmonary fibrosis, COPD, chronic leukocytosis, chronic tachycardia and hypertension. She presented to the emergency department due to having worsening confusion and shortness of breath. The patient is a poor historian; however, she states that she was having more trouble breathing and she was getting confused. She was evaluated in the emergency department and due to presenting symptoms, it was thought that we will place her in observation for further evaluation and management. At the time of my examination the patient denied any headache, fever, chills, chest pain, hemoptysis or weight changes, but complained of shortness of breath and not feeling well. PAST MEDICAL HISTORY: Includes hypertension, hyperlipidemia, pulmonary fibrosis, COPD, iron- deficiency anemia, chronic leukocytosis, chronic tachycardia. PAST SURGICAL HISTORY: Left total hip replacement. ALLERGIES: No known drug allergies. MEDICATIONS: Current medications include DuoNeb t.i.d.; Norvasc 5 mg p.o. daily; Zebeta 2.5 mg p.o. daily; ferrous sulfate 1 tablet p.o. daily; Lasix 20 mg p.o. q.p.m.; lisinopril 5 mg p.o. daily; omeprazole 40 mg p.o. daily; paroxetine 40 mg 1-1/2 tablets p.o. daily; prednisone 40 mg p.o. b.i.d.; [place] 20 mg p.o. daily. SOCIAL HISTORY: Denies any history of smoking, alcohol or illicit drug use. FAMILY HISTORY: No history of coronary disease. REVIEW OF SYSTEMS: Fourteen-point review of systems is as in HPI. Other systems all negative. PHYSICAL EXAMINATION: GENERAL: Cooperative female. She is resting comfortably now. VITAL SIGNS: Temperature 97.8 degrees, pulse 71, respirations 18, blood pressure 125/65. HEENT: Atraumatic, normocephalic. Extraocular movements intact. PERRLA. NECK: No masses. CHEST: Bibasilar rales. CARDIOVASCULAR: Regular rate and rhythm. ABDOMEN: Soft. Positive bowel sounds. EXTREMITIES: No edema. NEUROLOGIC: She is awake, alert and oriented x2. GENITOURINARY: No bladder distention. SKIN: Warm. LABORATORY DATA: WBCs 33.54, hemoglobin 12.6, hematocrit 40.0, platelets 235,000. Sodium 137, potassium 4.8, chloride 104, CO2 is 23, BUN is 98, creatinine is 1.0, glucose is 124. Troponin is 0.164. DIAGNOSTIC DATA: CT of the head shows chronic-appearing white matter changes. Chest x-ray shows stable pulmonary fibrosis. ASSESSMENT: A 69-year-old female with a history of pulmonary fibrosis, chronic obstructive pulmonary disease, chronic leukocytosis, chronic tachycardia and hypertension, who presented to the emergency department due to worsening shortness of breath and confusion over the past several days. She was evaluated in the emergency department, and due to her presenting symptoms it was thought that we will place her in observation for further evaluation and management. 1. Altered mental status. 2. Chronic hypoxemic respiratory failure. 3. Pulmonary fibrosis. 4. Pulmonary hypertension. 5. Chronic leukocytosis. 6. Mildly elevated troponins. 7. Iron-deficiency anemia on iron supplements PLAN: 1. We will admit the patient to the medical floor with telemetry. 2. We will continue with neurologic checks. 3. Consult Pulmonary for further evaluation of shortness of breath and pulmonary fibrosis. 4. Continue to monitor her labs and check her WBCs. 5. Trend troponins and consult cardiology. 6. Restart home medication. 6. We will place her on DVT prophylaxis with SCDs. 7. We will continue to follow and reassess, and make further recommendations based on the patient's clinical course. cc: Paul Grossman MD MTDD
--- NOTE | 2019-03-17 22:07 | PROVIDER DOCUMENTATION ---
This chart was entered by Nellie Kim Scribe, acting as scribe for Grace Tran MD. HPI-General Adult - General Chief Complaint: Altered Mental Status Stated Complaint: AMS Time Seen by Provider: 03/17/19 17:49 Source: patient, family Allergies/Adverse Reactions: Patient Allergies Allergy/AdvReac Type Severity Reaction Status Date / Time No Known Allergies Allergy Verified 03/17/19 20:13 Home Medications: Home Medication List Medication Instructions Recorded Confirmed Last Taken Type Albuterol Sulfate [Ventolin Hfa] 2 puff INH Q6-8H PRN PRN 01/24/19 02/24/19 Unknown History Ferrous Sulfate 1 tab PO DAILY 01/24/19 02/24/19 02/07/19 20:00 History 1 Paroxetine HCl 1.5 tab PO DAILY 01/24/19 02/24/19 02/07/19 08:00 History 1.5 Trospium [Sanctura] 1 tab PO DAILY 01/24/19 02/24/19 02/07/19 08:00 History 1 Cyanocobalamin (Vitamin B-12) 1,000 mcg IJ DIRECTED 02/03/19 02/24/19 02/06/19 History [Cyanocobalamin Injection] 1000 Omeprazole [Prilosec] 40 mg PO DAILY #90 capsule. 02/08/19 02/24/19 Unknown Rx Furosemide 20 mg PO QPM 02/24/19 02/24/19 Unknown History Multivit with Calcium,Iron,Min 1 ea PO DAILY 02/24/19 03/17/19 Unknown History [Womens Multiple Vitamins] Amlodipine [Norvasc] 5 mg PO DAILY #30 tab 03/01/19 Unknown Rx Azithromycin [Zithromax] 500 mg PO 1700 #7 tab 03/01/19 Unknown Rx Bisoprolol [Zebeta] 2.5 mg PO DAILY tab 03/01/19 Unknown Rx Furosemide [Lasix] 20 mg PO QAM tab 03/01/19 Unknown Rx LISINOpril [Prinivil] 5 mg PO DAILY #0 tab 03/01/19 Unknown Rx Prednisone 40 mg PO BID #60 tab 03/01/19 Unknown Rx Sulfamethoxazole/Tmp D.s. [Septra 1 ea PO Q12HR #14 tab 03/01/19 Unknown Rx Ds] Acetaminophen [Tylenol] 2 tab PO DAILY PRN 03/17/19 03/17/19 Unknown History Albuterol 2.5MG/Ipratrop 0.5MG 3 ml INH TID 03/17/19 03/17/19 Unknown History [Duoneb (A & A)] Albuterol Sulfate [Ventolin Hfa] 1 puff INH Q4HR PRN 03/17/19 03/17/19 Unknown History - History of Present Illness -Gen Adult Nature of Presenting Problems: pt is a 69 yr old female presenting via EMS, pt son reports pt has had recent (5day) change in mental status, reports pt has been confused, unable to tell month, day or year, increased drowsiness. pt is bed bound, on 3lmp home o2, recent hx of pulmonary fibrosis. son does report recent BP med change. son report recent urinary incontinence. Location of Pain/Injury: reports: none Quality of Pain: reports: none Onset/Duration: reports: 5 days ago Timing: reports: changing over time Context/Activities at Onset: reports: rest Modifying Factors: improves with: nothing Associated Symptoms: reports: denies symptoms (pt denies any complaints), other (droswy and confused per pt son) Similar Symptoms Previously?: No Recently seen or treated by another doctor?: Yes (admission here 02/24-03/01) Review of Systems - Adult - REVIEW OF SYSTEMS - ADULT Constitutional: reports: marlene. denies: fever Eyes: reports: no symptoms reported Ears, Nose, Mouth & Throat: reports: no symptoms reported Cardiovascular: denies: chest pain, palpitations, syncope Respiratory: denies: cough, shortness of breath Gastrointestinal: denies: abdominal pain, diarrhea, nausea, vomiting Genitourinary: reports: no symptoms reported Musculoskeletal: reports: no symptoms reported Integumentary: reports: no symptoms reported Neurological: denies: dizziness/vertigo, headache/migraines, syncope Psychiatric: reports: no symptoms reported Past History - Adult - PAST MEDICAL HISTORY-ADULT Review of Records: reports: Old Records Reviewed, Nursing Assessment Review, Medications Reviewed, Social history reviewed & non-contributory. Major Childhood Illnesses: reports: denies history Cardiovascular: reports: blood clots, CHF, HTN, hyperlipidemia Respiratory: reports: lung disease, pneumonia Gastrointestinal: reports: denies history Obstetrical/Gynecological: reports: denies history Genitourinary: reports: denies history Musculoskeletal: reports: orthopedic injury (pt reports she developed L foot- drop last Summer, and then tripped last Sep. resulting in ORIF for hip fx. she feels she made uneventful recovery. no hx of DVT/PE>) Neurological: reports: denies history Endocrine/Immune: reports: denies history Other Conditions: reports: denies history - PRIOR SURGERIES/PROCEDURES Surgical/Procedure History: reports: reviewed, not pertinent - IMMUNIZATION STATUS Childhood Immunizations: UTD Flu Vaccine: UTD - FAMILY HISTORY Family History: reviewed, not pertinent - SOCIAL HISTORY Smoking: denies Substance Use: denies Living Situation: family Physical Exam-General - PHYSICAL EXAM-ADULT Initial Vital Signs Reviewed: Yes - CONSTITUTIONAL General Appearance: no apparent distress, other (slightly drowsy) - EYES Eyes: PERRL/EOMI - HEAD, EARS, NOSE, MOUTH & THROAT HENMT: normocephalic/atraumatic, moist mucous membranes, normal ENT inspection - NECK Neck: non-tender, full range of motion, supple, normal inspection - RESPIRATORY Respiratory: chest non-tender, no pleuratic chest pain, no respiratory distress, no accessory muscle use, crackles (coasre crackles bilaterally) - CARDIOVASCULAR Cardiovascular: normal peripheral pulses, regular rate, rhythm, no edema - GASTROINTESTINAL (ABDOMEN) Abdominal Exam: normal bowel sounds, non tender, soft - MUSCULOSKELETAL Back Exam: normal inspection, no CVA tenderness, no vertebral tenderness Extremity: normal range of motion, non-tender, normal inspection - SKIN Integumentary: normal color, normal turgor, warm/dry - NEUROLOGIC Neurologic: grossly normal - PSYCHIATRIC Psych/Mental Status: other (oriented x 2 alert [address]-pt cannot tell month/yr) Progress - PLAN OF CARE/RESULTS Progress/Plan/Lab Results: Vital Signs - 8 hr 03/17/19 17:22 Temperature 97.8 F Pulse Rate 71 Respiratory Rate 18 Blood Pressure 125/65 O2 Sat by Pulse Oximetry 100 Laboratory Results - last 24 hr 03/17/19 17:36 POC Glucose 113 H Orders Category Date Time Status Cardiac Monitoring DIRECTED Care 03/17/19 17:57 Active IV Insertion ORDERED Care 03/17/19 17:57 Active Notify MD of + Sepsis Screen NOW Care 03/17/19 17:57 Active Notify Physician As Ordered Care 03/17/19 17:57 Active CHEST-1 VIEW [RAD] Stat Exams 03/17/19 17:57 Ordered BLOOD CULTURE [BLDCUL] Stat Lab 03/17/19 17:58 Ordered CBC WITH DIFF [HEME] Stat Lab 03/17/19 17:58 Ordered CK PROFILE [SP CHEM] Stat Lab 03/17/19 17:58 Ordered COMPREHENSIVE METABOLIC PANEL [CHEM] Stat Lab 03/17/19 17:58 Ordered LACTATE, PLASMA [CHEM] Lab 03/17/19 18:00 Uncollected LACTATE, PLASMA [CHEM] Lab 03/17/19 21:00 Uncollected LACTATE, PLASMA [CHEM] Lab 03/18/19 00:00 Uncollected PROTIME WITH INR [COAG] Stat Lab 03/17/19 17:58 Ordered PTT [COAG] Stat Lab 03/17/19 17:58 Ordered TROPONIN T Stat Lab 03/17/19 17:58 Ordered URINALYSIS W/POSS RFLX CULT [URINALYSIS] Stat Lab 03/17/19 17:57 Uncollected Oxygen Device Stat Oth 03/17/19 17:57 Active EKG [EKG] Stat Ther 03/17/19 17:37 Ordered Result Diagrams: 03/17/19 18:00 03/17/19 18:00 - EKG 1 Time of EKG reading by physician:: 17:40 EKG Read and Signed by:: Grace Dean EKG Interpretation (*Must complete 3 of following elements*): Abnormal (possible anterolateral infarct-age undetermined) Rate: 71 Rhythm: nsr [place]: normal QRS: RBB (incomplete RBBB) OK Interval: normal ST Wave: normal - CONSULTS/PCP/HOSPITALIST Notification #1 *Consult/PCP/Hospitalist*: Dr. Paul Grossman Time Discussed: 20:30 Consult Disposition: Admit (Hx, PE and patient care discussed, accepted.) Departure - Departure Date of Disposition Decision: 03/17/19 Time of Disposition Decision: 20:30 DIAGNOSIS: Altered mental status Qualifiers: Altered mental status type: unspecified Qualified Code(s): R41.82 - Altered mental status, unspecified Disposition: ADMITTED INPATIENT 09 Certified Medical Emergency: Emergent Condition: Stable Referrals and Follow-Ups: Lionel Eng MD [Primary Care Provider] - - Critical Care Note This patient required my direct & personal management of CC.: No Attestation - Physician/ ANTONIO Attestation Patient care was provided by Advanced Practice Provider:: No The physician spent face to face time with patient:: Yes Advanced Practice Provider documentation review:: Supervising physician onsite and consulted in the evaluation and care of this patient. The physician did have a face to face encounter with the patient. This chart was documented by the indicated scribe, (Nellie Kim Scribe) and accurately reflects the services I performed and decisions made by me, Grace Tran MD, as attested by the provider's signature.
[2019-03-18] MEDS: DUONEB (A & A) INH PRN ×2 (07:47→16:36)
[2019-03-18] MEDS: CENTRUM SILVER PO SCH (08:43)
[2019-03-18] MEDS ORDERED: LASIX PO SCH (09:00)
[2019-03-18 09:52] LABS: ALLEN TEST YES; BE -2.4 mmoll (-3.0-3.0); BLOOD TYPE ARTERIAL; METHB 1.6 % (0.0-1.5); O2(CT) 15.8 mL/dL (15.0-23.0); O2HB 95.6 % (95.0-99.0); PCO2(98.6) 32 mmHg (35-45); PO2(98.6) 86 mmHg (60-100); SAMPLE BLOOD; SAO2 98.7 % (95.0-100.0); THB 11.7 g/dL (11.5-17.4); pH(98.6) 7.43 (7.35-7.45)
[2019-03-18 09:53] LABS: MODALITY CANNULA
[2019-03-18] MEDS ORDERED: DUONEB (A & A) INH SCH (13:00)
[2019-03-18] MEDS ORDERED: NS 1,000 ML IV SCH (13:30)
[2019-03-18] MEDS ORDERED: NS 1,000 ML IV ONE (13:31)
--- NOTE | 2019-03-18 15:10 | PROGRESS NOTE ---
DATE: 03/18/2019 SUBJECTIVE: The patient's chart was reviewed. In summary, patient was admitted yesterday with alteration of mental status and shortness of breath for several days. A full evaluation was pursued in the emergency department. Laboratory data returned significant for a leukocytosis, elevated troponin of 0.164, and elevated BUN with normal creatinine. The patient was admitted for further evaluation and management. Cardiology and Pulmonary Medicine have been consulted. The patient has a longstanding history of pulmonary fibrosis. She currently is being treated with prednisone daily. Chest x-ray upon admission returned largely unchanged. This morning, upon my arrival, unfortunately, patient was unable to hear and participate in conversation. She had a hearing aid, although this was not working. Despite multiple attempts at discussion, this proved unsuccessful. Approximately snf through the conversation, patient's fiance arrived. He was able to provide some information. He did, however, note he had been out of town. Per report, patient has had some increasing confusion over the course of the last several days. He attributed it to a "heart medicine." He notes patient to have considerable weakness over this time period. Additionally, he noted both urinary and bowel incontinence. He denied any evidence of fevers, chills, nausea, or vomiting to his knowledge. OBJECTIVE: T-max 98.2 degrees, heart rate 61 to 76, respirations 15 to 18, blood pressure 118- 127/56-59.General: Chronically ill appearing, no acute distress. Cardiovascular: Regular rate and rhythm. No significant murmurs, rubs, or gallops. Pulmonary: Minimal crackles at bilateral bases. Adequate air movement. Abdomen: Soft, nontender, nondistended. Positive bowel sounds. Extremities: Moves all extremities well. No significant clubbing, cyanosis, or edema. Dermatologic: Evaluation reveals multiple ecchymoses. LABORATORY DATA: Persistently elevated troponin at approximately 0.16. ProBNP of 6656. ASSESSMENT AND PLAN: 1. Alteration of mental status--this is quite curious. Patient's past history is quite complicated. Unfortunately, I do not have a family member present to assist with her history. Per previous reports, the patient has multiple medical problems potentially contributing to this. When reviewing the patient's home medications, the "heart medicine" likely represents bisoprolol. Patient's fiance is concerned this has precipitated her symptoms. For now, we will hold this. I have encouraged patient to get a battery for her hearing aid. We will treat patient's chronic hypoxic respiratory failure as below. We will check stool studies. We will address the elevated BUN as described below. 2. Chronic hypoxic respiratory failure with pulmonary fibrosis--the patient has longstanding disease. Chest x-ray suggested stability. I agree with Pulmonary consultation. Dr. Camejo has started empiric Levaquin therapy. We will continue bronchodilators. We will resume prednisone 20 mg twice daily. I have asked the patient's family to bring her home medication list. 3. 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 At this point, she appears to be slightly dry. We will hold Lasix for now. We will follow Cardiology recommendations thereafter. 4. Leukocytosis--this certainly may be chronic. This is, however, elevated from previous. We will check stool studies. Empiric Levaquin has been started as noted. We will follow serial levels. 5. Elevated troponin--this appears to be chronic, likely secondary to renal dysfunction. We will follow this. 6. Elevated BUN with normal creatinine--I suspect this represents significant renal dysfunction. We will also remain aware that steroids may be contributing. For now, we will hold further Lasix therapy. We will consider whether Nephrology consultation is appropriate. 7. Hypertension--patient's blood pressure is currently controlled. We will hold amlodipine, bisoprolol and lisinopril for now. We will plan to resume once able. 8. Profound weakness--this is significant. We will treat above conditions. We will consider adding physical therapy once able. 9. Disposition--at this point, patient continues to require [facility] care in a hospital setting. We will plan discharge home once appropriate. cc: MD Lionel Mota MD
[2019-03-18] MEDS: PAXIL PO SCH (17:18)
[2019-03-18] MEDS: LEVAQUIN 500 MG/D5W 500 MG/100 ML IVPB IV SCH (17:19)
--- NOTE | 2019-03-18 19:31 | CONSULTATION ---
DATE OF CONSULTATION: 03/18/2019 IMPRESSION: 1. Nonspecific elevation in troponin. I suspect this is related to severe pulmonary hypertension and cor pulmonale. 2. Severe pulmonary hypertension. 3. Pulmonary fibrosis with chronic hypoxemia. 4. Severe pulmonary fibrosis with chronic hypoxia requiring home oxygen. 5. Chronic obstructive pulmonary disease. 6. Hypertension. 7. Hyperlipidemia. RECOMMENDATIONS: 1. Resume amlodipine 5 mg p.o. daily. 2. Would not resume beta-jacqueline. 3. Limited followup echocardiography to better define volume status. BUN is significantly elevated, but this may be related to cardiorenal syndrome from severe pulmonary hypertension and acute on chronic right heart failure. HISTORY OF PRESENT ILLNESS: This is a 69-year-old white female with a past history of severe pulmonary hypertension with a systolic PA pressure of over 100 mmHg, pulmonary fibrosis with chronic hypoxia, COPD, chronic leukocytosis and hypertension. She was admitted with confusion and progressive weakness. She has chronic shortness of breath. There has been no chest pain. She has been hospitalized twice in the last 8 weeks for pulmonary fibrosis, severe pulmonary hypertension, and associated cor pulmonale. On her last hospitalization she was started on prednisone, and this has been progressively reduced. Several days ago, Lasix was stopped. She has been getting progressively weaker. There has been no orthopnea. She is very hard of hearing, and it makes it difficult to gather history. Appetite has been good up until about a week ago. PAST MEDICAL HISTORY: 1. Pulmonary fibrosis with chronic hypoxia requiring home oxygen therapy. 2. Severe pulmonary hypertension with estimated systolic PA pressure of 107 mmHg by echocardiography in January of this year. 3. Cor pulmonale/chronic right heart failure with significant right-sided cardiac chamber enlargement and decreased right-sided chamber function. 4. COPD. 5. Hypertension. 6. Chronic leukocytosis. PAST SURGICAL HISTORY: Includes left hip replacement. ALLERGIES: She has no known drug allergies. MEDICATIONS PRIOR TO ADMISSION: As listed. SOCIAL HISTORY: She has never smoked and does not use alcohol. FAMILY HISTORY: Negative for premature coronary disease. She does have a family history of hypertension and breast cancer. REVIEW OF SYSTEMS: Pulmonary: Noteworthy for progressive dyspnea. Gastrointestinal: Noteworthy for recent anorexia. Constitutional: Noncontributory beyond history of present illness. Remainder of review of systems negative/noncontributory beyond history of present illness, with 14 total systems reviewed. PHYSICAL EXAMINATION: General: Reveals an older white a older white female with somewhat of a hayes facies, in no distress on supplemental oxygen. She is very hard of hearing. HEENT: Extraocular movements intact. Mucous membranes are moist. Neck: Supple. Elevated central venous pressure is suggested on inspection of neck veins. There are no carotid bruits. Chest: Auscultation of the chest reveals bibasilar inspiratory crackles. Cardiac Exam: Reveals a regular rate and rhythm without appreciable murmur or gallop. Abdomen: Soft. Bowel sounds are normal. Extremities: Without edema. LABORATORY DATA: Includes a white blood cell count 33.54, hematocrit 40.0, hemoglobin 12.6, platelet count 235. Arterial blood gas: PH of 7.43, pCO2 of 32, PO2 of 86, on nasal cannula oxygen at 3 L/minute. Sodium 137, potassium 4.8, chloride 104, carbon dioxide 23. BUN 98, creatinine 1.0. Glucose 124. Troponin-T 0.164. Followup troponin-T 0.168. ProB natriuretic peptide level 6656. Albumin 2.5. Chest x-ray reports pulmonary fibrosis but no acute abnormality. ECG is pending. cc: MD Lionel Martinez MD
--- NOTE | 2019-03-18 20:49 | CONSULTATION ---
DATE OF CONSULTATION: 03/18/2019 CHIEF COMPLAINT: Shortness of breath, weakness. HISTORY OF PRESENT ILLNESS: This is a 69-year-old female with pulmonary fibrosis and COPD [*] at bedside during assessment with no voiced complaints. The patient denies chest pain but states that she is still having some shortness of breath at times. REVIEW OF SYSTEMS: A 10-point review of systems was obtained and the pertinent is listed within the HPI otherwise noncontributory. ALLERGIES: Denies. PAST MEDICAL HISTORY: Hypertension, hyperlipidemia, pulmonary fibrosis, COPD, iron deficiency anemia, chronic leukocytosis, chronic tachycardia. PAST SURGICAL HISTORY: Left total hip replacement. MEDICATIONS: See home reconciliation list. SOCIAL HISTORY: Denies alcohol or illicit drug use and denies history of smoking. FAMILY HISTORY: Coronary artery disease runs in family. PHYSICAL EXAM: Vital Signs: Blood pressure 127/59, temperature 98.2, pulse 74, respirations 14, O2 saturation 100%. She has O2 at 2 L per nasal cannula. General: This is a 69-year-old female appears frail, spouse at bedside. HEENT: Atraumatic, normocephalic. PERRLA, extraocular movements intact. Neck: Supple, trachea midline. Respiratory: Diminished breath sounds throughout. Cardiovascular: Regular rate and rhythm. No gallops or murmurs or rubs. Abdomen: Soft, bowel sounds present in all 4 quadrants. Extremities: Without edema, clubbing or cyanosis. Skin: Warm. Neurologic: Alert, oriented x2. ASSESSMENT AND PLAN: 1. Chronic obstructive pulmonary disease. 2. Chronic hypoxic respiratory failure. 3. Pulmonary fibrosis. Continue Levaquin, steroids and bronchodilators and supplemental O2 as prescribed. Thank you for the courtesy of this consult. Dictated by SMITHA Peraza for Ronny Camejo MD cc: SMITHA Peraza MD Timothy P. Weirich, MD
[2019-03-18] MEDS: PREDNISONE PO SCH (22:10)
[2019-03-19] MEDS: PRILOSEC PO SCH (06:20)
[2019-03-19 07:17] LABS: BASO# 0.01 X1000 (0.0-0.2); HEMATOCRIT 34.4 % (37.0-47.0); HEMOGLOBIN 10.7 g/dL (12.0-16.0); IMM GRAN# 0.15 X1000 (0.0-0.04); IMM GRAN% 0.6 % (0.0-0.5); LYMPH# 0.58 X1000 (1.2-3.4); LYMPH% 2.2 % (20.5-51.1); MCH 25.9 PG (27-31); MCHC 31.1 g/dL (33-37); MCV 83.3 FL (81-99); MONO# 0.53 X1000 (0.11-0.59); MPV 9.6 FL (7.4-10.4); NEUT# 25.14 X1000 (1.4-6.5); NEUT% 95.2 % (42.2-75.2); PLT 165 X1000 (130-400); RBC 4.13 XMIL (4.2-5.4); RDW 21.8 % (11.5-14.5); WBC 26.41 X1000 (4.8-10.8)
[2019-03-19 07:28] LABS: ESTIMATED GFR > 60
[2019-03-19] MEDS: DUONEB (A & A) INH PRN ×3 (07:28→19:06)
[2019-03-19 07:30] LABS: AGAP 10; ALB/GLOB RATIO 0.9; ALBUMIN 2.1 g/dL (3.5-5.0); ALKALINE PHOSPHATASE 49 U/L (32-104); BUN 82 mg/dL (8-22); CALCIUM 8.4 mg/dL (8.8-10.2); CHLORIDE 103 mmol/L (98-107); COSMO 296; CREATININE 0.9 mg/dL (0.5-0.9); GLUCOSE 92 mg/dL (70-104); GOT 34 U/L (10-30); GPT 27 U/L (10-36); POTASSIUM 4.5 mmol/L (3.5-5.1); SODIUM 136 mmol/L (136-145); TCO2 23 mmol/L (25-35); TOTAL BILIRUBIN 0.26 mg/dL (0.20-1.00); TOTAL PROTEIN 4.5 g/dL (6.3-8.3)
[2019-03-19 08:03] LABS: BANDS 6 % (0-1); LYMPHS 2 % (21-51); SEGS 92 % (42-75)
--- NOTE | 2019-03-19 08:40 | EKG Report ---
Test Performed on : 03/19/2019 07:55:59 AM Test Reason : pulmonary fibrosis Blood Pressure : / mmHG Vent. Rate : 083 BPM Atrial Rate : 083 BPM P-R Int : 170 ms QRS Dur : 100 ms QT Int : 376 ms P-R-T Axes : 039 009 063 degrees QTc Int : 441 ms Normal sinus rhythm. Incomplete right bundle branch block Possible Anterior infarct (cited on or before 17-MAR-2019) Abnormal ECG When compared with ECG of 17-MAR-2019 17:38, (Unconfirmed) Questionable change in initial forces of Lateral leads Confirmed by Raghav SOTOMAYOR, Aidan Reynolds ([id number]) on 03/20/2019 12:48:50 PM
[2019-03-19] MEDS: PAXIL PO SCH (09:08)
[2019-03-19] MEDS: CENTRUM SILVER PO SCH (09:09)
[2019-03-19] MEDS: NORVASC PO SCH (09:09)
[2019-03-19] MEDS: PREDNISONE PO SCH ×2 (09:10→20:37)
[2019-03-19] MEDS: FERROUS SULFATE PO SCH (09:10)
[2019-03-19 10:00] LABS: INR 1.01; PROTIME 14.1 Seconds (11.0-16.0)
[2019-03-19] MEDS ORDERED: NS 250 ML ONE (12:47)
--- NOTE | 2019-03-19 12:55 | ECHO REPORT ---
ORDER DATE: 03/18/2019 PROCEDURE: Limited echocardiography. MEASUREMENTS: Septal thickness 1.7. Left ventricular internal diameter diastole 3.3. Posterior wall thickness 1.7. Aortic root 3.2. Left atrium 3.1. SUMMARY: 1. Adequate quality study. 2. Mild sclerotic changes of trileaflet aortic valve demonstrated with normal aortic valve opening evident. Peak gradient across the aortic valve. Mitral, tricuspid, and pulmonic valves are without evidence of structural abnormality. There is mild tricuspid regurgitation. The estimated systolic PA pressure by Doppler is 80 mmHg, suggesting severe pulmonary hypertension. The aortic root is normal size. 3. Normal left ventricular chamber size with moderate concentric left ventricular hypertrophy is demonstrated. Estimated left ventricular ejection fraction is greater than 75% with left ventricle appearing hyperdynamic. No regional wall motion abnormalities are evident. Left atrium, right atrium, and right ventricle are normal in size with normal right ventricular systolic function. 4. Very small posterior pericardial effusion. 5. Appearance of inferior vena cava suggests normal central venous pressure. cc: MD Lionel Martinez MD
[2019-03-19] MEDS ORDERED: NS 1,000 ML IV ONE (14:33)
[2019-03-19] MEDS: LEVAQUIN 500 MG/D5W 500 MG/100 ML IVPB IV SCH (15:13)
--- NOTE | 2019-03-19 15:27 | PROGRESS NOTE ---
DATE: 03/19/2019 SUBJECTIVE: The patient was admitted on 03/17/2019 with alteration of mental status, chronic hypoxic respiratory failure secondary to pulmonary fibrosis, leukocytosis, and elevated BUN with normal creatinine. After a full review and discussion with both patient's sons and her fiance, a better understanding of her history and recent changes was achieved. The patient was started on levofloxacin for possible underlying pulmonary pathology in the setting of leukocytosis. 1 L of normal saline was slowly provided over the course of the day yesterday. This morning, patient is much more interactive. She is alert to person and place. She was able to tell me that her primary care physician is Dr. Eng. She stated she felt poorly, but was unable to localize those symptoms. P.o. intake has been marginal. Her energy level remains very low. Pulmonary status remains stable with chronic shortness of breath, although not above baseline. She denies fevers, chills, nausea, vomiting or chest discomfort. OBJECTIVE: T-max 99.1, heart rate 80 to 89, respirations 15 to 16, blood pressure 128-138/54- 66.General: Chronically ill appearing, no acute distress. Cardiovascular: Regular rate and rhythm. No significant murmurs, rubs, or gallops. Pulmonary: Crackles at bilateral bases. Adequate air movement. Abdomen: Soft, nontender, nondistended. Positive bowel sounds. Extremities: Moves all extremities well. No significant clubbing, cyanosis or edema. Dermatologic: Reveals multiple ecchymoses. LABORATORY DATA: White blood cell count 26.42, hemoglobin 10.7, hematocrit 34.4, platelet count is 165,000. Sodium 136, potassium 4.5, chloride 103, bicarb 23, BUN 82, creatinine 0.9, glucose 92, calcium 8.4, total bilirubin 0.26, total protein 4.5, albumin 2.1, alkaline phosphatase 49, AST 34, ALT 27. ProBNP has increased to 21,812. ASSESSMENT AND PLAN: 1. Alteration of mental status - I suspect that this was multifactorial. She currently is being treated for underlying uremia with IV fluids and possible infection with antibiotic intervention. With these interventions, her overall condition has improved. We will continue treatment plans as described below. 2. Chronic hypoxic respiratory failure with pulmonary fibrosis - The patient's pulmonary pressures are noted to be considerably elevated on echocardiogram. Recent chest x-ray suggested stability. We will continue prednisone 20 mg twice daily. We will continue Levaquin for possible underlying pulmonary infection. We will monitor patient's pulmonary status closely with IV hydration. 3. Pulmonary hypertension secondary to pulmonary fibrosis and associated tricuspid valve disease - The patient continues to appear to be slightly dry on examination. Her proBNP has increased considerably, although I do not find this to be a reliable lab in the setting of her multiple medical problems. We will continue to follow her clinical course very closely. I appreciate Cardiology consultation. 4. Leukocytosis - This patient has chronic disease. Yesterday, her white blood cell count was significantly higher than today. This may suggest improvement of infection with levofloxacin therapy. For now, we will continue current management. 5. Elevated troponin - This appears to be secondary to renal dysfunction. We will remain aware. 6. Elevated BUN with normal creatinine - I suspect this represents significant renal dysfunction. With gentle hydration, patient's BUN has decreased from 98 to 82. We will again hydrate with 1 L of normal saline. We will repeat levels in the a.m. We will defer nephrology consultation to Dr. Eng. 7. Hypertension - The patient's blood pressure is borderline, but reasonably controlled at present time. We will continue to hold metoprolol and lisinopril. Amlodipine has been resumed. We will plan to resume additional medications depending on her blood pressure response. 8. Profound weakness - This is significant. We will encourage patient out of bed if able. We will initiate physical therapy in the a.m. 9. Disposition - At this point, patient continues to require long-term care in a hospital setting. We will plan discharge home or rehab once appropriate. cc: MD Lionel Mota MD [facility]
[2019-03-19] MEDS ORDERED: ALBUMIN 25% IV ONE (17:18)
--- NOTE | 2019-03-19 17:45 | PROGRESS NOTE ---
DATE: 03/19/2019 SUBJECTIVE: Patient reports feeling some improvement today. She is more awake. There has been no chest pain. OBJECTIVE: Vital signs: Blood pressure 130/60, heart rate 79, oxygen saturation 100% on nasal cannula oxygen. Neck: Jugular venous distention cannot be appreciated. Chest: Auscultation of the chest reveals bibasilar inspiratory crackles. Cardiac: Reveals a regular rate and rhythm without appreciable murmur or gallop. Extremities: Cool and with very mild edema. LABORATORY DATA: Includes a white blood cell count of 26.41, hematocrit 34.4, hemoglobin 10.7, platelet count 165,000. Sodium 136, potassium 4.5, chloride 103, carbon dioxide 23, BUN 82, creatinine 0.9, glucose 92, albumin 2.1. Initial troponin 0.164. Follow-up troponin 0.168. IMPRESSIONS: 1. Mild nonspecific elevation of troponin. I suspect this is likely related to severe pulmonary hypertension and cor pulmonale. 2. Severe pulmonary hypertension. 3. Pulmonary fibrosis with chronic hypoxemia. 4. Hypertension. 5. Hyperlipidemia. RECOMMENDATIONS: 1. Continue amlodipine. 2. Echocardiography suggests normal central venous pressure if not low normal central venous pressure. Agree with intravenous fluid administration as this is also consistent with her being dry, which is also suggested by her lab data. 3. Conservative cardiovascular management overall in light of her severe comorbidities. cc: MD Lionel Martinez MD
[2019-03-20] MEDS: PRILOSEC PO SCH (05:42)
--- NOTE | 2019-03-20 07:19 | EKG Report ---
Test Performed on : 03/17/2019 5:38:21 PM Test Reason : AMS Blood Pressure : / mmHG Vent. Rate : 071 BPM Atrial Rate : 071 BPM P-R Int : 168 ms QRS Dur : 096 ms QT Int : 376 ms P-R-T Axes : 034 -20 030 degrees QTc Int : 408 ms Normal sinus rhythm. Incomplete right bundle branch block Possible Anterolateral infarct , age undetermined Abnormal ECG When compared with ECG of 24-FEB-2019 07:25, (Unconfirmed) Borderline criteria for Anterolateral infarct are now present T wave inversion no longer evident in Anterior leads QT has shortened Unconfirmed Result
[2019-03-20 07:26] LABS: HEMATOCRIT 31.6 % (37.0-47.0); HEMOGLOBIN 9.9 g/dL (12.0-16.0); IMM GRAN# 0.09 X1000 (0.0-0.04); IMM GRAN% 0.5 % (0.0-0.5); LYMPH# 0.32 X1000 (1.2-3.4); LYMPH% 1.8 % (20.5-51.1); MCH 26.1 PG (27-31); MCHC 31.3 g/dL (33-37); MCV 83.4 FL (81-99); MONO# 0.48 X1000 (0.11-0.59); MONO% 2.7 % (1.7-9.3); NEUT# 16.75 X1000 (1.4-6.5); PLT 164 X1000 (130-400); RBC 3.79 XMIL (4.2-5.4); RDW 21.8 % (11.5-14.5); WBC 17.64 X1000 (4.8-10.8)
[2019-03-20 07:44] LABS: CALCIUM 8.3 mg/dL (8.8-10.2); POTASSIUM 4.1 mmol/L (3.5-5.1)
[2019-03-20] MEDS: FERROUS SULFATE PO SCH (09:06)
[2019-03-20] MEDS: PAXIL PO SCH (09:06)
[2019-03-20] MEDS: CENTRUM SILVER PO SCH (09:07)
[2019-03-20] MEDS: NORVASC PO SCH (09:07)
[2019-03-20] MEDS: LEVAQUIN 500 MG/D5W 500 MG/100 ML IVPB IV SCH (09:07)
[2019-03-20] MEDS: PREDNISONE PO SCH (09:07)
[2019-03-21] MEDS: PRILOSEC PO SCH (06:01)
--- NOTE | 2019-03-21 08:08 | PROGRESS NOTE ---
DATE: 03/20/2019 SUBJECTIVE: The patient is asleep in bed and she arouses briefly and talking to me. She seems lucid and oriented. She voiced no complaints, just stated that her breathing was good. OBJECTIVE: Vital Signs: 97.6, 84, 18, 127/65, 100% saturated on 3 L nasal cannula. General: On physical exam, the patient seems alert once aroused. She is oriented and seems to be at or near her baseline. Lungs: Sounds reveal crackles in both sides, more chronic toward the bases on both sides. Good air movement. No wheezing. Cardiovascular: Regular without appreciable murmur or gallop. The patient is noted to have Cushingoid facies. LABORATORY: White cell count was 17.6, hemoglobin 9.9, hematocrit 31.6. BUN was 77, creatinine 1.0. Blood sugar was 192. ASSESSMENT AND PLAN: 1. The patient's lung condition appears to be stable. 2. Renal function has improved. I think a lot of her confusion was due to azotemia, which is a combination of steroid use and Lasix. 3. Echocardiogram revealed diastolic tricuspid regurgitation and normal ejection fraction. 4. Pulmonary hypertension. Aware. 5. Leukocytosis. This appears to be improved. She is on antibiotics. Almost every time she is on antibiotics, this sort of improves, is rather inexplicable without a distinct source. The patient has had no fever. 6. The patient's other cardiac conditions were managed by Dr. Banks. 7. Blood pressure is acceptable. 8. The patient's profound weakness persists. 9. We will discuss with the patient's son about permanent disposition, what they would like to do. 10. We have tapered steroids down. We will see how she does on lower dose of steroids. 11. On physical exam today, she had a little bit of edema in the dependent areas and has probably reached maximum benefit from gradual rehydration, then discontinue her intravenous fluids for the present time. cc: Lionel Eng MD
[2019-03-21] MEDS: CENTRUM SILVER PO SCH (09:16)
[2019-03-21] MEDS: FERROUS SULFATE PO SCH (09:16)
[2019-03-21] MEDS: PAXIL PO SCH (09:17)
[2019-03-21] MEDS: NORVASC PO SCH (09:17)
[2019-03-21] MEDS: LEVAQUIN 500 MG/D5W 500 MG/100 ML IVPB IV SCH (09:17)
[2019-03-21] MEDS: PREDNISONE PO SCH (09:18)
--- NOTE | 2019-03-21 09:30 | PROGRESS NOTE ---
DATE: 03/21/2019 SUBJECTIVE: The patient is asleep but easily arousable. She seems to be functioning at her baseline level of mentation. Mental status is generally good, according to the report by her son. I discussed ongoing plan with the patient and her son. They were in agreement. OBJECTIVE: Vital Signs: 97.6, 73, 14, 126/58, 100% saturated on 3 L nasal cannula. Physical Examination: The patient is alert, oriented, conversive, and appropriate. She is a bit hard of hearing but seems to understand everything that I say. Lungs: Bilateral crackles, mostly in the lower lobes. Good air movement. No wheezing. Cardiovascular: Regular. Extremities: Trace dependent edema on the back of the thighs when lying supine. Laboratory: None today. ASSESSMENT AND PLAN: 1. The patient's pulmonary fibrosis and ongoing problems with pulmonary hypertension are stable at the present time. 2. The patient's chronic leukocytosis has improved with antibiotics and reduction of steroids. I am not sure by what mechanism that white cell count flares up. According to the patient's son, that has been sort of a random occurrence and does not correlate with any temperature change or necessarily with any worsening in respiratory status. 3. The patient's elevated sedimentation rate and CRP last time was investigated with multiple serologic tests for lung vasculitis, and all were negative. We are going to recheck a sedimentation rate and CRP. She remains on 20 mg of prednisone daily. 4. The patient has azotemia had been improved yesterday with a BUN down to 77. This has shown concomitant improvement in mental status, although she is still weak. We have let things equilibrate and stopped intravenous fluids due to her edema. We will recheck a BMP tomorrow to see what her BUN and creatinine are. 5. The patient remains with a poor appetite. She was encouraged to eat regular food. We are also going to try and get her up in a chair today and get her upright. She seemed very reluctant but, hopefully, we can overcome this. cc: Lionel Eng MD
[2019-03-22] MEDS: PRILOSEC PO SCH (07:20)
[2019-03-22] MEDS: DUONEB (A & A) INH PRN ×3 (07:30→18:19)
[2019-03-22 07:47] LABS: BASO# 0.02 X1000 (0.0-0.2); BASO% 0.1 % (0.0-0.8); EOS# 0.14 X1000 (0.0-0.7); EOS% 0.7 % (0.0-10.0); HEMATOCRIT 33.1 % (37.0-47.0); HEMOGLOBIN 10.2 g/dL (12.0-16.0); LYMPH# 0.88 X1000 (1.2-3.4); LYMPH% 4.4 % (20.5-51.1); MCH 26.4 PG (27-31); MCHC 30.8 g/dL (33-37); MCV 85.8 FL (81-99); MONO# 1.07 X1000 (0.11-0.59); MONO% 5.4 % (1.7-9.3); MPV 10.2 FL (7.4-10.4); NEUT# 17.74 X1000 (1.4-6.5); NEUT% 89.4 % (42.2-75.2); PLT 171 X1000 (130-400); RBC 3.86 XMIL (4.2-5.4); RDW 21.7 % (11.5-14.5); WBC 19.85 X1000 (4.8-10.8)
[2019-03-22 08:34] LABS: AGAP 9; ALB/GLOB RATIO 1.3; ALBUMIN 2.5 g/dL (3.5-5.0); ALKALINE PHOSPHATASE 49 U/L (32-104); BUN 61 mg/dL (8-22); C REACTIVE PROT QUANT 28.03 mg/L (0.00-5.00); CALCIUM 8.3 mg/dL (8.8-10.2); CHLORIDE 109 mmol/L (98-107); COSMO 296; CREATININE 0.8 mg/dL (0.5-0.9); ESTIMATED GFR > 60; GLUCOSE 93 mg/dL (70-104); GOT 27 U/L (10-30); GPT 24 U/L (10-36); POTASSIUM 4.1 mmol/L (3.5-5.1); SODIUM 140 mmol/L (136-145); TCO2 22 mmol/L (25-35); TOTAL PROTEIN 4.5 g/dL (6.3-8.3)
[2019-03-22 08:35] LABS: TOTAL BILIRUBIN < 0.15 mg/dL (0.20-1.00)
[2019-03-22 08:50] LABS: SED RATE 15 mm/hr (0-20)
[2019-03-22] MEDS ORDERED: LASIX IV ONE (09:07)
[2019-03-22] MEDS: PREDNISONE PO SCH (09:35)
[2019-03-22] MEDS: CENTRUM SILVER PO SCH (09:35)
[2019-03-22] MEDS: LEVAQUIN 500 MG/D5W 500 MG/100 ML IVPB IV SCH (09:35)
[2019-03-22] MEDS: CYMBALTA PO SCH (09:36)
[2019-03-22] MEDS: FERROUS SULFATE PO SCH (09:36)
[2019-03-22] MEDS: NORVASC PO SCH (09:36)
--- NOTE | 2019-03-22 09:44 | PROGRESS NOTE ---
DATE: 03/22/2019 SUBJECTIVE: According to the patient's son, she really does not want to participate in eating or doing any type of physical activity. She seems to have "given up." In her present status, there is no way that she could return to the home unless she was on hospice but would essentially be bed- bound. We are exploring options in that regard. OBJECTIVE: Vital Signs: Temperature 98.3, pulse 86, respirations 20, blood pressure 136/56, O2 100% saturated on 3 L nasal cannula. Physical Exam: The patient roused up to talk briefly to the patient's son and myself. She seemed disinterested. Lungs show bilateral crackles more prominent in the bases on both sides. Good air movement. No wheezing. Cardiovascular is regular. Extremities: The patient has dependent edema on the backs of the arms and backs of the legs. She has been essentially bed-bound since coming to the hospital and has not gotten up at all. LABORATORY: White cell count 19.8, hematocrit 33.1. Sedimentation rate is 15, BUN 61, creatinine 0.8. C-reactive protein was 28.03. ASSESSMENT AND PLAN: 1. The patient's son stated that they would have to explore other options of permanent care home placement versus getting [facility] involved. Possibility of care home with hospice is not out of the question either. The patient seems to have given up. I am going to try and make some subtle and slow adjustments in her antidepressant regimen to try and get her a little bit more activated. We will make a slow transition over to something like Cymbalta. 2. Chronic leukocytosis, stable and at baseline. It is inexplicable to me what this responds so drastically to antibiotics without any other evidence of active infection. 3. Sedimentation rate is 15. She remains on prednisone 20 daily. C-reactive protein is 6 times normal. 4. The patient's azotemia has resolved with a little bit of fluids and holding her Lasix. I think she is teetering on the point of still holding onto those fluids and I am going to give her a tiny dose of Lasix 20 mg 1 time today and check her status tomorrow. 5. The patient has been encouraged to eat and to get in the chair, but she seems completely disinterested. 6. I have made the patient Do Not Resuscitate in speaking with the patient's oldest son, Gerald. Both brothers are aware of her approaching demise and they want her kept comfortable really at any cost. Even if she quits eating and drinking completely and with good treatment she could still last weeks to months. I would like to give her a little bit more drive to stay alive by manipulating some medications and optimizing her respiratory status. cc: Lionel Eng MD
--- NOTE | 2019-03-22 13:55 | Diag Imaging Result Doc PS360 ---
EXAM: CHEST-1 VIEW 03/22/2019 HISTORY: SOB TECHNIQUE: AP portable at 0931 COMMENT: There are increased interstitial opacities in both lung bases and laterally in the left upper lobe. These findings were also present on 03/17/2019 and 02/26/2019. There is a PICC line on the right with its tip in the superior vena cava. IMPRESSION: Pulmonary fibrosis. Electronically signed by Veto Cottrell 03/22/2019 1:53 PM
--- NOTE | 2019-03-23 09:23 | EKG Report ---
Test Performed on : 03/23/2019 09:00:08 AM Test Reason : palpitations Blood Pressure : / mmHG Vent. Rate : 098 BPM Atrial Rate : 098 BPM P-R Int : 170 ms QRS Dur : 100 ms QT Int : 346 ms P-R-T Axes : 049 -07 044 degrees QTc Int : 441 ms Normal sinus rhythm. Incomplete right bundle branch block Inferior infarct , age undetermined Anterior infarct (cited on or before 17-MAR-2019) Abnormal ECG When compared with ECG of 19-MAR-2019 07:55, No significant change was found Confirmed by Raghav SOTOMAYOR, Aidan Reynolds ([id number]) on 03/24/2019 10:54:12 AM
[2019-03-23] MEDS: PRILOSEC PO SCH (09:43)
[2019-03-23] MEDS: LEVAQUIN 500 MG/D5W 500 MG/100 ML IVPB IV SCH (09:49)
[2019-03-23] MEDS: PAXIL PO SCH (09:50)
[2019-03-23] MEDS: NORVASC PO SCH (09:51)
[2019-03-23] MEDS: FERROUS SULFATE PO SCH (09:52)
[2019-03-23] MEDS: CENTRUM SILVER PO SCH (09:52)
[2019-03-23] MEDS: CYMBALTA PO SCH (09:52)
[2019-03-23] MEDS: PREDNISONE PO SCH (09:52)
--- NOTE | 2019-03-23 10:12 | PROGRESS NOTE ---
DATE: 03/23/2019 SUBJECTIVE: No real changes overnight. One of the patient's sons thought that her breathing was slightly more labored than previously. She received 20 mg of Lasix yesterday, and no ins and outs were recorded in regard to increased urine output. Vital Signs 97.3, 94, 141/65, and 100% saturated on 3 L nasal cannula. Fluid balance was not recorded although percent of meal consumed was recorded at 100% yesterday, and there is no way that this is true. She has not eaten anything like 100%, and that is recorded on two different days. The sons are bringing her outside food and samples of things that she really likes to eat, and she is consuming a little bit in that regard. OBJECTIVE: Lungs: The patient's lungs have dry crackles more so in the bases on each side. There is no wheezing. She has not labored. She does get a bit winded talking. Cardiovascular: The patient is generally in a regular rhythm, but occasionally after a sigh or cough, the heart rate will slow down, and then it will seem irregular. She is more tachycardic than on previous days. Neuro-Psych: The patient seems depressed and non motivated. LABORATORY: Lab holiday. ASSESSMENT AND PLAN: 1. A discharge planning consult was ordered yesterday, but there has been nothing posted as to any discussion in that regard. The patient's sons are still leaning toward hospice and/or nursing placement or both. 2. The patient has chronic leukocytosis has been stabilized down to its baseline of slightly less than 20,000. She is on antibiotics. Her prednisone level has been over 20 mg daily. 3. Prerenal azotemia has resolved with a little bit of application of IV fluids. Give her Lasix x1 yesterday, and we will recheck those labs tomorrow, and see where we gave equilibrated in regard to kidney function. 4. The patient is clearly depressed, and I think she is about ready to give up on life. When questioned about that during last admission, she stated that she was not in a state of mind to give up on everything and go on hospice. The patient is do not resuscitate level 1. Family definitely wants her kept comfortable. 5. Pulmonary fibrosis seems relatively stable by comparison to previous exams. We will continue present therapy. cc: Lionel Eng MD
[2019-03-23] MEDS: DUONEB (A & A) INH PRN (20:20)
[2019-03-24] MEDS: PRILOSEC PO SCH (06:51)
[2019-03-24 07:39] LABS: BASO# 0.01 X1000 (0.0-0.2); BASO% 0.1 % (0.0-0.8); EOS# 0.18 X1000 (0.0-0.7); EOS% 0.9 % (0.0-10.0); HEMATOCRIT 32.6 % (37.0-47.0); HEMOGLOBIN 10.1 g/dL (12.0-16.0); IMM GRAN# 0.34 X1000 (0.0-0.04); IMM GRAN% 1.7 % (0.0-0.5); LYMPH# 0.82 X1000 (1.2-3.4); LYMPH% 4.1 % (20.5-51.1); MCH 25.9 PG (27-31); MCV 83.6 FL (81-99); MONO# 0.76 X1000 (0.11-0.59); MONO% 3.8 % (1.7-9.3); MPV 9.7 FL (7.4-10.4); NEUT# 17.74 X1000 (1.4-6.5); NEUT% 89.4 % (42.2-75.2); PLT 176 X1000 (130-400); RDW 21.9 % (11.5-14.5); WBC 19.85 X1000 (4.8-10.8)
[2019-03-24 08:04] LABS: AGAP 9; ALB/GLOB RATIO 0.9; ALBUMIN 2.2 g/dL (3.5-5.0); ALKALINE PHOSPHATASE 53 U/L (32-104); BUN 48 mg/dL (8-22); CALCIUM 8.2 mg/dL (8.8-10.2); CHLORIDE 107 mmol/L (98-107); COSMO 285; CREATININE 0.8 mg/dL (0.5-0.9); ESTIMATED GFR > 60; GLUCOSE 81 mg/dL (70-104); GOT 27 U/L (10-30); GPT 23 U/L (10-36); POTASSIUM 4.4 mmol/L (3.5-5.1); SODIUM 137 mmol/L (136-145); TCO2 21 mmol/L (25-35); TOTAL BILIRUBIN 0.16 mg/dL (0.20-1.00); TOTAL PROTEIN 4.6 g/dL (6.3-8.3)
[2019-03-24] MEDS: PREDNISONE PO SCH (08:51)
[2019-03-24] MEDS: FERROUS SULFATE PO SCH (08:51)
[2019-03-24] MEDS: PAXIL PO SCH (08:51)
[2019-03-24] MEDS: CENTRUM SILVER PO SCH (08:51)
[2019-03-24] MEDS: CYMBALTA PO SCH (08:51)
[2019-03-24] MEDS: LEVAQUIN 500 MG/D5W 500 MG/100 ML IVPB IV SCH (08:51)
[2019-03-24] MEDS: NORVASC PO SCH (08:51)
--- NOTE | 2019-03-24 10:46 | PROGRESS NOTE ---
DATE: 03/24/2019 SUBJECTIVE: The patient is awake and alert. She is eating a marie biscuit from an outside source. She does not like hospital food. Her eating has been sporadic at best, and usually does better with junk food. I had an extensive discussion with the patient, and with her sons separately. We have come to several agreements. OBJECTIVE: Vital Signs: 98.1, 92, 17, 136/72, and 100% saturated on 3 L nasal cannula. Lungs: Clear. Cardiovascular: Regular. Neurologic: The patient is alert. The sensorium and interaction are the best they have been since her hospitalization. She does have trace edema in the dependent areas as she lies in the bed all the time. LABORATORY: White cell count 19.85, hematocrit 32.6, BUN is 48, and creatinine 0.8. ASSESSMENT AND PLAN: 1. Pulmonary fibrosis is stable. She still has an elevated CRP. Dr. Teran had mentioned in conversation use of other agents to quell the inflammatory process. She has tapered down to 20 mg of prednisone. 2. The patient's chronic leukocytosis is stabilized basically to a baseline level of just under 20,000. She is on antibiotics. We can likely switch this to oral over the weekend. 3. Prerenal azotemia, which is a combination of high-dose steroids and Lasix use has resolved completely. I think this is improved her overall sensorium. 4. We have made other adjustments in her antidepressive regimen to try and get her to more activated. I have increased her Cymbalta to 30 mg and decreased her paroxetine down to 20 mg. 5. Do not resuscitate level 1. 6. The agreement that we came to is as follows. If she can show that she can assist with transfer to the bedside commode, and is able to participate with physical therapy and is eating better, then I have no problem with her returning home with that, but as it is she is essentially weight in the bed, and is not making any effort physically or nutritionally to get better. If that is something that persists through the weekend, then we will have to seek [facility] placement. I stated this frankly to both the patient and to her sons in separate meetings, and the sons were in agreement with that. The patient is somewhat in denial or in a defiant mode about insisting that she go home. It was explained to her that she was admitted to the hospital because the sitter simply could not handle her as she was unable to assist them at all. Now, that her sensorium is improved, if we can get her in a nutritional place and in a motivational state that is a little bit better, it is possible that she could return home at some time with the previous arrangement. cc: Lionel Eng MD
[2019-03-25] MEDS: PRILOSEC PO SCH (06:42)
[2019-03-25] MEDS: DUONEB (A & A) INH PRN (07:51)
[2019-03-25] MEDS: LEVAQUIN 500 MG/D5W 500 MG/100 ML IVPB IV SCH (08:21)
[2019-03-25] MEDS: PAXIL PO SCH (08:21)
[2019-03-25] MEDS: CYMBALTA PO SCH (08:21)
[2019-03-25] MEDS: FERROUS SULFATE PO SCH (08:21)
[2019-03-25] MEDS: PREDNISONE PO SCH (08:22)
[2019-03-25] MEDS: NORVASC PO SCH (08:22)
[2019-03-25] MEDS: CENTRUM SILVER PO SCH (08:22)
[2019-03-25] MEDS: ALBUTEROL NEB INH SCH ×2 (15:41→21:38)
[2019-03-26] MEDS: ALBUTEROL NEB INH SCH ×4 (03:23→21:54)
[2019-03-26] MEDS: PRILOSEC PO SCH (06:35)
[2019-03-26] MEDS: CENTRUM SILVER PO SCH (08:10)
[2019-03-26] MEDS: PREDNISONE PO SCH (08:10)
[2019-03-26] MEDS: NORVASC PO SCH (08:10)
[2019-03-26] MEDS: CYMBALTA PO SCH (08:10)
[2019-03-26] MEDS: FERROUS SULFATE PO SCH (08:10)
[2019-03-26] MEDS: PAXIL PO SCH (08:10)
--- NOTE | 2019-03-26 08:46 | PULMONOLOGY PROGRESS NOTE ---
DATE: 03/25/2019 SUBJECTIVE: The patient is awake, alert. She was sleeping upon arrival. She is without specific complaints. She does have a noticeable increase in respiratory rate when she is aroused. OBJECTIVE: Vital Signs: The patient has been afebrile for the last 24 hours. Blood pressure 147/80, heart rate 100, respiratory rate 18 to 24, oxygen saturation 96% on 3 L per nasal cannula. HEENT: Pupils are equal and reactive. Oropharynx is clear. Neck: Supple. Chest: Reveals faint crackles in both lung bases. Cardiac: S1, S2. Abdomen: Soft and without hepatosplenomegaly. Extremities: Without edema. IMPRESSION: 1. Hypoxemic respiratory failure. 2. Pulmonary fibrosis with steroid responsive infiltrates. 3. Elevation in the C-reactive protein. 4. Severe pulmonary hypertension. RECOMMENDATIONS: 1. Continue current steroid regimen. 2. Recommend outpatient evaluation for treatment of her pulmonary hypertension. 3. Anxiolytics as needed for anxiety disorder. 4. Continue oxygen for hypoxemic respiratory failure. 5. Agree with end of life discussions as have been performed by Dr. Eng. cc: MD Lionel Ferreira MD
[2019-03-26] MEDS: RITALIN PO SCH (13:24)
--- NOTE | 2019-03-26 18:08 | PULMONOLOGY PROGRESS NOTE ---
DATE: 03/26/2019 SUBJECTIVE: The patient is sleeping upon arrival. She is without specific complaints. OBJECTIVE: Vital Signs: The patient has been afebrile for the last 24 hours. Blood pressure 141/69, heart rate 101, respiratory rate 20, oxygen saturation 100% on 3 L per nasal cannula. HEENT: Pupils are equal and reactive. Oropharynx appears clear. Neck: Supple. Chest: Reveals minimal crackles in the bases. Cardiac exam: S1, S2. Abdomen: Soft. Extremities: Without edema. LABORATORIES: No new chemistries, CBC, or radiographs today. IMPRESSIONS: A 69-year-old with: 1. Hypoxemic respiratory failure. 2. Pulmonary fibrosis with steroid responsive infiltrates. 3. Elevation in the C-reactive protein which improves with steroids. 4. Severe pulmonary hypertension. RECOMMENDATIONS: 1. Continue steroid regimen. 2. Recommend consideration of treatment of pulmonary hypertension. This could be initiated as an outpatient. 3. Angiolytics as needed for anxiety disorder. 4. Continue oxygen for hypoxemic respiratory failure. 5. End of life discussions ongoing per Dr. Eng. cc: MD Lionel Ferreira MD
[2019-03-27] MEDS: ALBUTEROL NEB INH SCH ×4 (03:53→20:00)
[2019-03-27 05:08] LABS: ALLEN TEST YES; BE -1.3 mmoll (-3.0-3.0); BLOOD TYPE ARTERIAL; HCO3-(ACT) 23.9 mmoll (20.0-26.0); METHB 1.2 % (0.0-1.5); O2(CT) 13.3 mL/dL (15.0-23.0); O2HB 96.4 % (95.0-99.0); PCO2(98.6) 32 mmHg (35-45); PO2(98.6) 90 mmHg (60-100); SAMPLE BLOOD; SAO2 98.9 % (95.0-100.0); THB 9.7 g/dL (11.5-17.4); pH(98.6) 7.45 (7.35-7.45)
[2019-03-27 05:09] LABS: MODALITY CANNULA
[2019-03-27] MEDS: RITALIN PO SCH (06:19)
[2019-03-27] MEDS: PRILOSEC PO SCH (06:20)
--- NOTE | 2019-03-27 06:59 | Diag Imaging Result Doc PS360 ---
EXAM: CHEST-PORTABLE HISTORY: abnormal exam TECHNIQUE: Chest single view COMPARISON: 03/22/2019 FINDINGS: No change in the right-sided PICC line. There are bilateral infiltrates/increased interstitial markings in the mid and lower lungs. These are slightly more prominent than on the prior study. There is a small left pleural effusion. IMPRESSION: Mild interval worsening. Electronically signed by Ravi Eaton 03/27/2019 6:56 AM
[2019-03-27 07:24] LABS: BASO# 0.02 X1000 (0.0-0.2); BASO% 0.1 % (0.0-0.8); EOS# 0.17 X1000 (0.0-0.7); EOS% 0.9 % (0.0-10.0); HEMATOCRIT 31.6 % (37.0-47.0); IMM GRAN# 0.26 X1000 (0.0-0.04); IMM GRAN% 1.4 % (0.0-0.5); LYMPH# 0.71 X1000 (1.2-3.4); LYMPH% 3.9 % (20.5-51.1); MCH 26.6 PG (27-31); MCHC 31.6 g/dL (33-37); MONO# 0.66 X1000 (0.11-0.59); MONO% 3.6 % (1.7-9.3); MPV 9.2 FL (7.4-10.4); NEUT# 16.62 X1000 (1.4-6.5); NEUT% 90.1 % (42.2-75.2); PLT 191 X1000 (130-400); RBC 3.76 XMIL (4.2-5.4); RDW 22.6 % (11.5-14.5); WBC 18.44 X1000 (4.8-10.8)
[2019-03-27 07:38] LABS: CALCIUM 8.2 mg/dL (8.8-10.2); CREATININE 1.1 mg/dL (0.5-0.9); POTASSIUM 4.5 mmol/L (3.5-5.1)
[2019-03-27] MEDS: NORVASC PO SCH (09:20)
[2019-03-27] MEDS: PREDNISONE PO SCH (09:20)
[2019-03-27] MEDS: FERROUS SULFATE PO SCH (09:20)
[2019-03-27] MEDS: CENTRUM SILVER PO SCH (09:20)
[2019-03-27] MEDS: CYMBALTA PO SCH (09:20)
[2019-03-27] MEDS: PAXIL PO SCH (09:20)
--- NOTE | 2019-03-27 21:37 | PROGRESS NOTE ---
DATE: 03/27/2019 SUBJECTIVE: Patient's chart was reviewed. In summary, patient was admitted on 03/16/2019 with alteration of mental status, chronic hypoxic respiratory failure, pulmonary hypertension, leukocytosis, azotemia, and profound weakness. The patient was treated aggressively. With improvement of her azotemia, her mental status improved. Her chronic respiratory failure with pulmonary fibrosis continues to be treated with a prednisone taper. Thus far, she has tolerated it reasonably well. In the setting of leukocytosis, patient was treated with a 7 day course of levofloxacin for possible underlying pneumonia. Unfortunately, patient continues to be very weak. Upon my arrival this morning, patient states she felt poorly. She was unable to further assist with symptomatology. She denied fevers, chills, nausea, vomiting, increasing shortness of breath, or chest discomfort. This evening, upon my arrival, the patient was more interactive. She states she felt better. She noted having eaten reasonably well during the day. She continues to work with physical therapy, however remains very weak. OBJECTIVE: Vital Signs: T-max 98.0 degrees, heart rate 92 to 110, respirations 15 to 20, blood pressure 126 to 150 over 64 to 78. General: Chronically ill appearing, no acute distress. Cardiovascular: Slightly tachycardic. Regular rhythm. No significant murmurs, rubs, or gallops. Pulmonary: Minimal crackles at bilateral bases. Adequate air movement. Abdomen: Soft, nontender, and nondistended. Positive bowel sounds. Extremities: Moves all extremities well. No significant clubbing, cyanosis, or edema. Dermatologic: Evaluation reveals no evidence of rash. LABORATORY DATA: White blood cell count 18.44, hemoglobin 10.0, hematocrit 31.6, platelet count 191,000. PH 7.45, pCO2 32, pO2 90, bicarbonate 24. Sodium 139, potassium 4.5, chloride 109, bicarb 23, BUN 48, creatinine 1.1, glucose 81, calcium 8.2. CRP 37.09. ASSESSMENT AND PLAN: 1. Alteration of mental status. With treatment of patient's underlying azotemia, patient did achieve improvement. Her fiance questions whether current nebulizers could be precipitating some confusion. While they may, the benefits outweigh the risks. We will continue to follow clinically. 2. Chronic hypoxic respiratory failure with pulmonary fibrosis. The patient is being treated with prednisone therapy per Dr. Camejo. We will continue supplemental oxygen. As above, patient has completed a 7 day course of levofloxacin for the possibility of underlying pneumonia. 3. Pulmonary hypertension. We will continue current treatment. As described in Dr. Teran's previous notes, outpatient therapy will need to be considered. 4. Leukocytosis. The patient's white blood cell count remains reasonably stable. We will follow clinically. 5. Anemia. The patient's hemoglobin and hematocrit remain low, but stable. At this point, no intervention is warranted. 6. Azotemia. The patient has achieved improvement with adjustment of medications and intravenous hydration. BUN today is reasonably stable. 7. Hypertension. The patient's blood pressure is modestly elevated. She is currently being treated with amlodipine therapy. For now, we will continue this. 8. Profound weakness. We will continue patient on physical therapy. I discussed the need for rehabilitation with patient and her fiance. She is resistant, but unfortunately I do not feel they are good alternatives. We will ask Programmer Analyst Consultant to discuss potential options. 9. Depression. This certainly is playing a role. She currently is being treated with paroxetine. Methylphenidate was added yesterday. We will follow this. 10. Disposition. At this point, the patient continues to require care home care in a hospital setting. We will plan discharge home once appropriate. cc: MD Lionel Mota MD
[2019-03-28] MEDS: ALBUTEROL NEB INH SCH ×3 (03:26→15:06)
[2019-03-28] MEDS: PRILOSEC PO SCH (06:18)
[2019-03-28] MEDS: RITALIN PO SCH (06:18)
[2019-03-28] MEDS: FERROUS SULFATE PO SCH (08:55)
[2019-03-28] MEDS: CYMBALTA PO SCH (08:55)
[2019-03-28] MEDS: PREDNISONE PO SCH (08:56)
[2019-03-28] MEDS: NORVASC PO SCH (08:56)
[2019-03-28] MEDS: CENTRUM SILVER PO SCH (08:56)
[2019-03-28] MEDS: PAXIL PO SCH (08:56)
[2019-03-28] MEDS ORDERED: LOVENOX SUBQ SCH (20:15)
--- NOTE | 2019-03-28 20:29 | PROGRESS NOTE ---
DATE: 03/28/2019 SUBJECTIVE: Upon arrival this morning, patient states she was feeling somewhat improved. Throughout the day, patient states she did reasonably well. She worked with physical therapy, but remains very weak. P.o. intake has been adequate. This evening, patient is very interactive. Her fiance notes increasing lower extremity edema. There has been no evidence of fevers, chills, nausea, vomiting, or chest discomfort. OBJECTIVE: Vital Signs: T-max 98.7 degrees, heart rate 93 to 114, respirations 16 to 18, blood pressure 126 to 158 over 64 to 82. General: Chronically ill appearing, in no acute distress. Cardiovascular: Regular rate and rhythm. No significant murmurs, rubs, or gallops. Pulmonary: Crackles at bilateral bases. Adequate air movement. Abdomen: Soft, nontender, nondistended. Positive bowel sounds. Extremities: Moves all extremities well. No significant clubbing or cyanosis. There is 1+ lower extremity edema bilaterally. Dermatologic: Evaluation reveals no evidence of rash. LABORATORY DATA: None. ASSESSMENT AND PLAN: 1. Alteration of mental status: Patient continues to demonstrate improvement. We will continue aggressive management of each of her conditions as described below. 2. Chronic hypoxic respiratory failure with pulmonary fibrosis: Patient is being treated with prednisone per Dr. Camejo, supplemental oxygen, and bronchodilators. She has completed a 7 day course of levofloxacin therapy. Pulmonary status is reasonably stable. 3. Pulmonary hypertension: This is significant. The patient may require outpatient medical intervention. For now, we will continue supportive care. 4. Leukocytosis: The patient's white blood cell count is reasonably stable. This likely is a consequence of prednisone therapy. 5. Anemia: As of yesterday, hemoglobin and hematocrit were stable. 6. Azotemia: Patient's BUN has demonstrated improvement from admission. We will remain aware. 7. Hypertension: Patient's blood pressure is reasonably controlled with amlodipine therapy. 8. Profound weakness: This is the limiting factor of her hospitalization. At this point, it appears rehabilitation will be most appropriate. Safety Sealer is pursuing this. 9. Depression: We will continue patient on paroxetine. Methylphenidate was added on Wednesday for energy. 10. Lower extremity edema: This likely is a consequence of volume. The risk of diuresis outweighs the benefits. 11. Disposition: At this point, patient continues to require detention care in a hospital setting. We will plan discharge home once appropriate. cc: MD Lionel Mota MD
[2019-03-29] MEDS: ALBUTEROL NEB INH SCH ×5 (02:44→22:05)
[2019-03-29] MEDS: RITALIN PO SCH (06:03)
[2019-03-29] MEDS: PRILOSEC PO SCH (06:03)
[2019-03-29 06:58] LABS: BASO# 0.04 X1000 (0.0-0.2); BASO% 0.2 % (0.0-0.8); EOS# 0.12 X1000 (0.0-0.7); EOS% 0.5 % (0.0-10.0); HEMATOCRIT 29.5 % (37.0-47.0); HEMOGLOBIN 9.1 g/dL (12.0-16.0); IMM GRAN# 0.23 X1000 (0.0-0.04); LYMPH# 0.99 X1000 (1.2-3.4); LYMPH% 4.2 % (20.5-51.1); MCH 25.9 PG (27-31); MCHC 30.8 g/dL (33-37); MCV 83.8 FL (81-99); MONO# 0.79 X1000 (0.11-0.59); MONO% 3.4 % (1.7-9.3); MPV 8.9 FL (7.4-10.4); NEUT# 21.22 X1000 (1.4-6.5); NEUT% 90.7 % (42.2-75.2); PLT 182 X1000 (130-400); RBC 3.52 XMIL (4.2-5.4); RDW 22.4 % (11.5-14.5); WBC 23.39 X1000 (4.8-10.8)
[2019-03-29 07:19] LABS: ANISOCYTOSIS 1+; LYMPHS 4 % (21-51); MONO 3 % (1-9); SEGS 93 % (42-75)
[2019-03-29 07:25] LABS: AGAP 8; ALB/GLOB RATIO 1.1; ALBUMIN 2.4 g/dL (3.5-5.0); ALKALINE PHOSPHATASE 63 U/L (32-104); BUN 50 mg/dL (8-22); CALCIUM 8.1 mg/dL (8.8-10.2); CHLORIDE 106 mmol/L (98-107); COSMO 288; CREATININE 0.8 mg/dL (0.5-0.9); ESTIMATED GFR > 60; GLUCOSE 79 mg/dL (70-104); GOT 20 U/L (10-30); GPT 17 U/L (10-36); POTASSIUM 4.3 mmol/L (3.5-5.1); SODIUM 138 mmol/L (136-145); TCO2 24 mmol/L (25-35); TOTAL BILIRUBIN 0.18 mg/dL (0.20-1.00); TOTAL PROTEIN 4.6 g/dL (6.3-8.3)
[2019-03-29] MEDS: NORVASC PO SCH (09:23)
[2019-03-29] MEDS: FERROUS SULFATE PO SCH (09:23)
[2019-03-29] MEDS: CENTRUM SILVER PO SCH (09:24)
[2019-03-29] MEDS: CYMBALTA PO SCH (09:24)
[2019-03-29] MEDS: PREDNISONE PO SCH (09:24)
[2019-03-29] MEDS: PAXIL PO SCH (09:25)
--- NOTE | 2019-03-29 19:58 | PROGRESS NOTE ---
DATE: 03/29/2019 SUBJECTIVE: Upon my arrival this morning, patient was resting in bed. She denied any significant complaints including shortness of breath, nausea, vomiting, abdominal pain, chest pains, or palpitations. Throughout the day, patient states she did reasonably well. Her p.o. intake is adequate. She remains very weak. This evening, patient again states her condition is largely unchanged. She denies overt complaints. Patient is currently being evaluated for possible transfer to [facility]. OBJECTIVE: Vital signs: T-max 98.7 degrees, heart rate 104 to 115, respirations 16 to 20, blood pressure 141 to 156 over 67 to 75. General: Chronically ill appearing in no acute distress. Cardiovascular: Slightly tachycardic. Regular rhythm. No significant murmurs, rubs, or gallops. Pulmonary: Crackles at bilateral bases anteriorly. Adequate air movement. Abdomen: Soft, nontender, nondistended. Positive bowel sounds. Extremities: Moves all extremities well. No significant clubbing or cyanosis, 1+ lower extremity edema bilaterally. Dermatologic: Evaluation reveals no evidence of rash. LABORATORY DATA: None. ASSESSMENT AND PLAN: 1. Alteration of mental status--patient has achieved improvement with treatment of her underlying conditions as described below. At present time, patient's family notes intermittent confusion, although this appears to be approaching baseline. We will remain aware of that. Prednisone may also be exacerbating this condition. 2. Chronic hypoxic respiratory failure with pulmonary fibrosis--I appreciate Dr. Camejo's consultation. We will continue prednisone, supplemental oxygen, and bronchodilators for now. She has completed a 7-day course of levofloxacin. She is currently off of all antibiotic intervention. 3. Pulmonary hypertension--Unfortunately, this is significant in playing a considerable role in her overall health. We will continue to optimize her medical and nonmedical management. 4. Leukocytosis--The patient has a chronic leukocytosis, likely a consequence of underlying primary leukocytosis exacerbated by prednisone therapy. She has no evidence of infection at present time. We will remain aware. 5. Anemia--We will plan to recheck a hemoglobin and hematocrit in the morning. We will follow this. 6. Azotemia--The patient's BUN remains elevated but is improved considerably from admission. We will remain aware. We will remain aware that prednisone may be contributing. We will follow clinically. 7. Hypertension--Patient's blood pressure is slightly elevated despite amlodipine therapy. At this point, the risk of adjusting medications outweighs the benefits. 8. Profound weakness--Unfortunately, this is limiting her ability to return home. marketing services specialist is working toward options for disposition. A request for [facility] has been made. We await those results. For now, we will continue physical therapy. 9. Depression--the patient is currently being treated with paroxetine therapy. Methylphenidate was added on Wednesday. We will follow this. 10. Lower extremity edema--This likely is a consequence of volume. Unfortunately, with diuresis, she has developed considerable azotemia. The risk of further diuresis at this point outweighs the benefits as her pulmonary status is stable. We will need to continue to follow this as well. 11. Disposition--At this point, patient continues to require senior living care in a hospital setting. We will plan discharge home or to rehabilitation once appropriate. cc: MD Lionel Mota MD
[2019-03-30] MEDS: ALBUTEROL NEB INH SCH ×4 (03:55→21:26)
[2019-03-30] MEDS: PRILOSEC PO SCH (06:32)
[2019-03-30] MEDS: RITALIN PO SCH (06:32)
--- NOTE | 2019-03-30 06:50 | Diag Imaging Result Doc PS360 ---
CHEST-1 VIEW - 03/30/2019 INDICATION: SOB COMPARISON: 03/27/2019 FINDINGS: Stable right PICC line in good position. There is a new large focal infiltrate at the right hilum. Otherwise persistent coarse peripheral basilar interstitial opacities compatible with pulmonary fibrosis. Stable cardiomegaly. No pneumothorax or pleural effusion. IMPRESSION: New dense infiltrate in the right midlung concerning for pneumonia or aspiration. Mild pulmonary fibrosis. Cardiomegaly. Electronically signed by Aleksander Gomes 03/30/2019 6:48 AM
[2019-03-30] MEDS ORDERED: LASIX IV ONE (08:32)
[2019-03-30] MEDS: PAXIL PO SCH (09:51)
[2019-03-30] MEDS: FERROUS SULFATE PO SCH (09:51)
[2019-03-30] MEDS: CYMBALTA PO SCH (09:51)
[2019-03-30] MEDS: PREDNISONE PO SCH (09:51)
[2019-03-30] MEDS: CENTRUM SILVER PO SCH (09:51)
[2019-03-30] MEDS: NORVASC PO SCH (09:51)
--- NOTE | 2019-03-30 13:49 | PROGRESS NOTE ---
DATE: 03/30/2019 SUBJECTIVE: The patient is having more difficulty breathing this morning. The machine tool technician instructor who was present stated that her oxygen saturation was 79% on 2 L. She has been steadily in the mid 90s through the weekend on 2 L. OBJECTIVE: Vital signs: Temperature 98.6 degrees, pulse rate 118, respiratory 22, blood pressure 139/74. She is listed as 98% on Venturi mask. Lungs: On physical examination, the patient's lungs are clear in the upper lobes with good air movement. She has crackles in the bases of both lungs. Extremities: The patient has 1+ edema, which is slightly more prominent than previous examination. She does not have upper extremity edema. ENT: She has cushingoid facies. Cardiovascular: Regular. ASSESSMENT AND PLAN: 1. The patient's mental status has been waxing and waning in bed. It was noted that she was put on some Ritalin of late, and we have adjusted her depression medications. I plan on discontinuing the Ritalin. It does not seem to have affected anything since she was started on it this weekend. 2. The patient has chronic hypoxic respiratory failure due to pulmonary fibrosis and pulmonary hypertension continues. It is noted that the patient's prednisone was reduced yesterday. She is also off of antibiotics which has traditionally made her better for inexplicable reasons. 3. The patient has pulmonary hypertension. We could add some other agents, but most of those are in essence vasodilators, which would likely increase her pulse rate and make her at least temporarily worse. We will entertain ideas such as adding Revatio at some point. 4. Leukocytosis persists. 5. The patient has a mild anemia. 6. The patient had presented originally with prerenal azotemia from over diuresis. It is noted that Dr. Camejo has given her a dose of Lasix this morning. 7. Hypertension. Aware. 8. Although we are dispositioning the patient out to rehab soon, she clearly cannot go with this downturn in her oxygen saturation level. We will try and make adjustments on medications and see where we can get her stabilized. cc: Lionel Eng MD
[2019-03-31] MEDS: ALBUTEROL NEB INH SCH ×5 (03:08→20:00)
[2019-03-31] MEDS: PRILOSEC PO SCH ×2 (06:31→08:30)
[2019-03-31 07:38] LABS: AGAP 8; BUN 43 mg/dL (8-22); CALCIUM 8.7 mg/dL (8.8-10.2); CHLORIDE 106 mmol/L (98-107); COSMO 290; CREATININE 0.8 mg/dL (0.5-0.9); ESTIMATED GFR > 60; GLUCOSE 89 mg/dL (70-104); POTASSIUM 3.9 mmol/L (3.5-5.1); SODIUM 140 mmol/L (136-145); TCO2 26 mmol/L (25-35)
[2019-03-31] MEDS: PAXIL PO SCH (08:29)
[2019-03-31] MEDS: CYMBALTA PO SCH (08:29)
[2019-03-31] MEDS: NORVASC PO SCH (08:30)
[2019-03-31] MEDS: PREDNISONE PO SCH (08:30)
[2019-03-31] MEDS: FERROUS SULFATE PO SCH (08:30)
[2019-03-31] MEDS: CENTRUM SILVER PO SCH (08:30)
[2019-03-31] MEDS ORDERED: LEVAQUIN 750 MG/D5W 750 MG/150 ML IVPB IV SCH (09:30)
[2019-03-31] MEDS ORDERED: LASIX IV ONE (10:03)
--- NOTE | 2019-03-31 11:57 | PROGRESS NOTE ---
DATE: 03/31/2019 SUBJECTIVE: The patient's son states that she is still short of breath today. She is still wearing the Venturi mask although her oxygen saturations have been at the 99 to 100 percent allyn since she has been on that. OBJECTIVE: Vital Signs: 97.4, 109, 138/68, 98% saturated on Venturi mask. Lungs: Clear. She has good air movement, particularly in the upper lobes. The lower lobes have their baseline crackles, and no evidence of acute fluid overload in the cardiothoracic cavity. Cardiovascular: The patient is in a regular tachycardia at just over 100 at the time of my examination. She is lying in bed with her eyes closed. She is easily arousable and interactive, but I do not think she hears very well and just kind of tunes out what we are talking about. Extremities: The patient has 1+ pitting edema in the lower extremities, particularly in the dependent areas. She has trace to 1+ edema in her upper extremities in the dependent areas of her forearms where she sits rather motionless. LABORATORY: BUN 43, creatinine 0.8, and blood sugars 89. ASSESSMENT AND PLAN: 1. The patient's mental status is more or less at baseline. The son says she is confused at times. We discontinued Ritalin which had been started over the weekend. 2. The patient has chronic hypoxic respiratory failure due to pulmonary fibrosis and pulmonary hypertension, and continues to be in exacerbation. She is still fluid overloaded slightly and want to gently give her another 40 of Lasix today. We bumped her prednisone back up, and I have also started Revatio 20 mg 3 times a day and we will see if her blood pressure will tolerate this. 3. Leukocytosis is persistent. 4. Mild chronic anemia. 5. As stated earlier, an additional dose of Lasix will be given with laboratories followed closely. 6. The patient was scheduled to be disposition out to rehab, but because of her recent onset of worsening hypoxemia this has been delayed or put off until next week. We are going to try to get her in a slightly more euvolemic state without causing prerenal azotemia, and monitor her progress in regard to oxygen saturations and overall energy levels. 7. In speaking with the patient's son, he agrees that she has little or no rehab potential and really makes only minimal efforts to get up. We are going to put in a pure wick external catheter and monitor fluid output, but really the baseline that we can hope to return to is relative comfort. I do not think she is going to get out of bed and walk. I think that we will be dealing with a discharge plan which will include, however, many days of rehab, she might have left which will then go into permanent long-term placement with hospice. This was discussed with the patient's son. He seemed to be in agreement. He has durable power of car body mechanic for healthcare decisions. cc: Lionel Eng MD
[2019-03-31] MEDS: REVATIO PO SCH ×2 (12:11→17:20)
[2019-04-01] MEDS: ALBUTEROL NEB INH SCH ×4 (03:56→20:20)
[2019-04-01] MEDS: PRILOSEC PO SCH (06:13)
--- NOTE | 2019-04-01 07:05 | Diag Imaging Result Doc PS360 ---
EXAM: CHEST-1 VIEW HISTORY: SOB TECHNIQUE: Portable chest single view COMPARISON: 03/30/2019 FINDINGS: No change in the right-sided PICC line. The heart remains enlarged. There is pulmonary edema and basilar infiltrates as well as a small left pleural effusion. The overall appearance is similar to the prior exam. IMPRESSION: Stable chest Electronically signed by aRvi Eaton 04/01/2019 7:03 AM
[2019-04-01 07:47] LABS: BASO# 0.01 X1000 (0.0-0.2); BASO% 0.1 % (0.0-0.8); EOS# 0.09 X1000 (0.0-0.7); EOS% 0.7 % (0.0-10.0); HEMOGLOBIN 8.5 g/dL (12.0-16.0); IMM GRAN# 0.09 X1000 (0.0-0.04); IMM GRAN% 0.7 % (0.0-0.5); LYMPH# 0.55 X1000 (1.2-3.4); LYMPH% 4.2 % (20.5-51.1); MCH 25.7 PG (27-31); MCHC 30.4 g/dL (33-37); MCV 84.6 FL (81-99); MONO# 0.78 X1000 (0.11-0.59); MONO% 5.9 % (1.7-9.3); MPV 9.2 FL (7.4-10.4); NEUT# 11.73 X1000 (1.4-6.5); NEUT% 88.4 % (42.2-75.2); PLT 197 X1000 (130-400); RBC 3.31 XMIL (4.2-5.4); RDW 21.9 % (11.5-14.5); WBC 13.25 X1000 (4.8-10.8)
[2019-04-01 08:03] LABS: AGAP 11; BUN 46 mg/dL (8-22); CALCIUM 8.6 mg/dL (8.8-10.2); CHLORIDE 106 mmol/L (98-107); COSMO 292; CREATININE 0.8 mg/dL (0.5-0.9); ESTIMATED GFR > 60; GLUCOSE 86 mg/dL (70-104); POTASSIUM 3.9 mmol/L (3.5-5.1); SODIUM 141 mmol/L (136-145); TCO2 24 mmol/L (25-35)
[2019-04-01] MEDS ORDERED: SALINE LOCK IV FLUID XX ONE (08:20)
[2019-04-01] MEDS: NORVASC PO SCH (09:15)
[2019-04-01] MEDS: CENTRUM SILVER PO SCH (09:15)
[2019-04-01] MEDS: PREDNISONE PO SCH (09:15)
[2019-04-01] MEDS: LASIX PO SCH ×2 (09:15→22:18)
[2019-04-01] MEDS: FERROUS SULFATE PO SCH (09:15)
[2019-04-01] MEDS: LEVAQUIN PO SCH (09:15)
[2019-04-01] MEDS: PAXIL PO SCH (09:15)
[2019-04-01] MEDS: CYMBALTA PO SCH (09:15)
[2019-04-01] MEDS: REVATIO PO SCH ×3 (09:15→22:19)
--- NOTE | 2019-04-01 14:38 | PROGRESS NOTE ---
DATE: 04/01/2019 SUBJECTIVE: The patient had a relatively quiet night. The patient's son noted that her right arm was markedly swollen compared to the left and mentioned that to me. The patient has not had good p.o. intake according to the chart. OBJECTIVE: Vital Signs: 98.0, 100, 137/76, 90% saturated on 2 L nasal cannula. PHYSICAL EXAMINATION: The patient is asleep but easily aroused. She seems to react with pain when I tested the edema in her right arm. She has a PICC line in the right biceps area.Lungs: Anterior superior lobes are reasonably clear. There is good air movement. No wheezing. Decreased breath sounds and crackles in the bases on both sides, which may be slightly more prominent than previously. Extremities: The right upper extremity is swollen. It does not appear red or warm. She is slightly tender. It is enlarged compared to the left arm. She does have some dependent edema in the left arm as well. Lower extremities show considerable edema particularly in the dependent areas, but on the whole she is edematous. LABORATORY: White cell count 13.25, hemoglobin is 8.5, hematocrit 28.0, BUN is 46, creatinine 0.8. ASSESSMENT AND PLAN: 1. Patient's mental status is at baseline. 2. Chronic hypoxic respiratory failure due to pulmonary fibrosis and pulmonary hypertension. Hypertension continues. We added Revatio yesterday. She is still fluid overloaded and did not seem to respond to a single dose of Lasix. I have put her on oral Lasix twice daily and we will monitor her BUN and creatinine. She had been over-diuresed at home on similar doses in the past and we will need to watch this carefully as she had developed a very significant prerenal azotemia. 3. Anemia persists and there may be some dilutional effect. We will continue to monitor and transfuse as necessary. 4. The patient's right arm was swollen. I am going to discontinue the PICC line that is in that side and try to get another peripheral or EJ IV going. I have converted all of her medications to oral, but I think we need access in case we need something to act quickly. 5. I discussed with the patient's son the prognosis and what our treatment course is. He is aware of the long-term prognosis. He is aware that her life span shortens the longer that she is in the bed. 6. Poor performance with physical therapy and nutrition. I have encouraged her multiple times to try and eat regular food, but she seems to pick and choose and only eat small amounts of offered food if any and will then have sweets brought in by her fiance in which she may or may not partake. I think that her albumin and lack of osmotic pressure may be contributing to her global edema as well. cc: Lionel Eng MD
[2019-04-02] MEDS: ALBUTEROL NEB INH SCH ×4 (03:40→21:17)
[2019-04-02] MEDS: PRILOSEC PO SCH ×2 (05:58→06:15)
[2019-04-02 07:25] LABS: HEMOGLOBIN 8.3 g/dL (12.0-16.0); RBC 3.24 XMIL (4.2-5.4); WBC 14.96 X1000 (4.8-10.8)
[2019-04-02 07:26] LABS: BASO# 0.02 X1000 (0.0-0.2); BASO% 0.1 % (0.0-0.8); EOS# 0.06 X1000 (0.0-0.7); EOS% 0.4 % (0.0-10.0); HEMATOCRIT 27.2 % (37.0-47.0); IMM GRAN# 0.14 X1000 (0.0-0.04); IMM GRAN% 0.9 % (0.0-0.5); LYMPH# 0.59 X1000 (1.2-3.4); LYMPH% 3.9 % (20.5-51.1); MCH 25.6 PG (27-31); MCHC 30.5 g/dL (33-37); MONO# 1.21 X1000 (0.11-0.59); MONO% 8.1 % (1.7-9.3); NEUT# 12.94 X1000 (1.4-6.5); NEUT% 86.6 % (42.2-75.2); PLT 231 X1000 (130-400); RDW 21.9 % (11.5-14.5)
[2019-04-02 07:55] LABS: AGAP 13; BUN 46 mg/dL (8-22); CALCIUM 8.8 mg/dL (8.8-10.2); CHLORIDE 106 mmol/L (98-107); COSMO 297; CREATININE 0.9 mg/dL (0.5-0.9); ESTIMATED GFR > 60; GLUCOSE 101 mg/dL (70-104); POTASSIUM 3.3 mmol/L (3.5-5.1); SODIUM 143 mmol/L (136-145); TCO2 24 mmol/L (25-35)
[2019-04-02] MEDS: FERROUS SULFATE PO SCH (09:40)
[2019-04-02] MEDS: PREDNISONE PO SCH (09:40)
[2019-04-02] MEDS: LEVAQUIN PO SCH (09:40)
[2019-04-02] MEDS: CENTRUM SILVER PO SCH (09:40)
[2019-04-02] MEDS: NORVASC PO SCH (09:40)
[2019-04-02] MEDS: LASIX PO SCH ×2 (09:40→19:57)
[2019-04-02] MEDS: CYMBALTA PO SCH (09:40)
[2019-04-02] MEDS: PAXIL PO SCH (09:40)
[2019-04-02] MEDS: REVATIO PO SCH ×3 (09:41→19:57)
--- NOTE | 2019-04-02 11:35 | PROGRESS NOTE ---
DATE: 04/02/2019 Ms. Diaz has a longstanding history of chronic respiratory failure with hypoxia secondary to pulmonary fibrosis and pulmonary hypertension. Her chest x-ray from 04/01/2019 demonstrated pulmonary edema and basilar infiltrates as well as a small left pleural effusion. She is maintaining O2 saturations of 94 to 100% on 5 L of O2. Her urine output has been marginal on increasing doses of Lasix. Renal function remains stable. PHYSICAL EXAMINATION: Temperature 97.6 degrees, pulse 110, respirations 18, BP 143/65. CV: Tachycardic. Regular S1, S2. Lungs: Distant breath sounds with increased period of expiration. There are bibasilar crackles. Abdomen: Soft, nontender, with active bowel sounds. Extremities: There is less edema of the right upper extremity. LABS: Various laboratory studies were obtained. A CBC demonstrated a white count of 14.9, hemoglobin 8.3, hematocrit 27.2, and a platelet count of 231,000. Electrolytes demonstrated the following: Sodium 143, potassium 3.3, chloride 106, BUN 46, creatinine 0.9, and glucose 101. ASSESSMENT AND PLAN: 1. Chronic respiratory failure with hypoxia secondary to pulmonary fibrosis and pulmonary hypertension. There does not appear to be any significant change clinically over the past 24 hours. We will continue supplemental oxygen, Revatio, prednisone, and DuoNeb nebulizer treatments. She has already been transitioned to oral Levaquin. 2. Anemia. Her hemoglobin and hematocrit were 8.3 and 27.2. On admission, her hemoglobin and hematocrit were 12.6 and 40.0. Her MCV is 84. I will guaiac bowel movements for occult blood and I will check a serum iron level. Potentially improving her blood counts may improve her underlying oxygenation. cc: MD Lionel Capps MD
[2019-04-03] MEDS: ALBUTEROL NEB INH SCH ×4 (03:30→21:08)
[2019-04-03] MEDS: REVATIO PO SCH ×4 (04:30→18:23)
[2019-04-03] MEDS: LASIX PO SCH ×3 (04:30→21:58)
[2019-04-03] MEDS: PRILOSEC PO SCH (06:19)
[2019-04-03 06:27] LABS: HEMATOCRIT 26.3 % (37.0-47.0); MCH 25.6 PG (27-31); MCHC 30.4 g/dL (33-37); MCV 84.3 FL (81-99); MPV 8.8 FL (7.4-10.4); RBC 3.12 XMIL (4.2-5.4); RDW 21.6 % (11.5-14.5); WBC 11.85 X1000 (4.8-10.8)
[2019-04-03 07:05] LABS: AGAP 11; BUN 43 mg/dL (8-22); CALCIUM 8.8 mg/dL (8.8-10.2); CHLORIDE 106 mmol/L (98-107); COSMO 295; CREATININE 0.8 mg/dL (0.5-0.9); ESTIMATED GFR > 60; GLUCOSE 85 mg/dL (70-104); POTASSIUM 3.1 mmol/L (3.5-5.1); SODIUM 143 mmol/L (136-145); TCO2 26 mmol/L (25-35)
[2019-04-03] MEDS ORDERED: POTASSIUM CHLORIDE 20% LIQUID PO ONE (10:07)
--- NOTE | 2019-04-03 10:30 | PROGRESS NOTE ---
DATE: 04/03/2019 SUBJECTIVE: Mrs. Diaz has a longstanding history of chronic respiratory failure with hypoxia secondary to pulmonary hypertension and pulmonary fibrosis. She is maintaining O2 saturations of 97%-100% on supplemental O2. She is with complaint of mild dyspnea. Her blood counts continue to trend downward. Her hemoglobin and hematocrit were 8 and 26 this morning. Her iron level was 28. OBJECTIVE: Cardiovascular: Regular rate and rhythm. Lungs: Distant breath sounds with increased period of expiration. Abdomen: Soft, nontender, with active bowel sounds. ASSESSMENT AND PLAN: 1. Chronic respiratory failure with hypoxia secondary to pulmonary fibrosis. She seems about the same as she did clinically yesterday. We will continue O2, Revatio, prednisone and nebulizer treatments. 2. Iron deficiency anemia. We will consult Dr. Ramachandran for consideration of an iron infusion. I believe that potentially increasing her blood counts would improve her oxygenation and help to alleviate some of her dyspnea. cc: MD Lionel Capps MD MTDD
[2019-04-03] MEDS: LEVAQUIN PO SCH (10:33)
[2019-04-03] MEDS: CENTRUM SILVER PO SCH (10:33)
[2019-04-03] MEDS: PAXIL PO SCH (10:34)
[2019-04-03] MEDS: PREDNISONE PO SCH (10:34)
[2019-04-03] MEDS: FERROUS SULFATE PO SCH (10:34)
[2019-04-03] MEDS: CYMBALTA PO SCH (10:34)
[2019-04-03] MEDS: NORVASC PO SCH (10:34)
[2019-04-03] MEDS ORDERED: TYLENOL PO ONE (11:06)
[2019-04-03] MEDS ORDERED: LASIX IV SCH (11:15)
[2019-04-03] MEDS ORDERED: NS 250 ML ONE (16:49)
[2019-04-04] MEDS: ALBUTEROL NEB INH SCH ×4 (03:51→21:14)
[2019-04-04] MEDS: PRILOSEC PO SCH (06:29)
--- NOTE | 2019-04-04 07:09 | Diag Imaging Result Doc PS360 ---
EXAM: CHEST-1 VIEW 04/04/2019 HISTORY: SOB TECHNIQUE: AP portable at 0618 COMMENT: Some improvement in the alveolar opacities in the right lung and left lower lung has occurred since 04/01/2019. IMPRESSION: Minimally improved pulmonary edema plus minus pneumonia. Electronically signed by Veto Cottrell 04/04/2019 7:07 AM
[2019-04-04] MEDS: CENTRUM SILVER PO SCH (08:13)
[2019-04-04] MEDS: PAXIL PO SCH (08:14)
[2019-04-04] MEDS: CYMBALTA PO SCH (08:14)
[2019-04-04] MEDS: LASIX PO SCH ×2 (08:14→20:16)
[2019-04-04] MEDS: NORVASC PO SCH (08:14)
[2019-04-04] MEDS: FERROUS SULFATE PO SCH (08:14)
[2019-04-04] MEDS: LEVAQUIN PO SCH (08:14)
[2019-04-04] MEDS: PREDNISONE PO SCH (09:02)
[2019-04-04] MEDS: REVATIO PO SCH ×3 (09:23→17:25)
--- NOTE | 2019-04-04 15:00 | Extremity Venous Study ---
PROCEDURE NAME: Venous U/S Right Leg - 04/03/2019 RIGHT LOWER EXTREMITY VENOUS ULTRASOUND: PHYSICAL FITNESS TEACHER: Bi. FINDINGS: The deep and superficial veins of the right lower extremity were visualized along their course. All vessels appear compressible with forward flow. No evidence of intraluminal thrombus. SUMMARY: No deep or superficial venous thrombosis seen in the right lower extremity. cc: MD Regina Guzmán CRNP Timothy P. Weirich, MD
--- NOTE | 2019-04-04 16:46 | PROGRESS NOTE ---
DATE: 04/04/2019 SUBJECTIVE: Over the course of the holiday weekend, not much has changed. The patient did diurese very effectively over the last several days and her edema is greatly improved. The patient still is not terribly motivated and sleeps a lot. She has made no indication whether she is ready to give up or not, but the patient's family is convinced that they are unable to take care of her at home any longer. PHYSICAL EXAMINATION: Vital Signs: 97.5, pulse rate 100, respirations 16, blood pressure 159/77. The patient is 100% saturated on 4 L nasal cannula. Lungs: The patient's upper lobes are clear. Cardiovascular: Regular approximately 100 beats per minute. Extremities: Show marked reduction in peripheral edema. LABORATORIES: None were drawn today. ASSESSMENT AND PLAN: 1. We will get Social Work involved again on this issue. The patient will not return to [facility]. She did agree to go to [facility]. The question is whether she will go in as rehab with then subsequent admission for permanent senior living placement with hospice or whether she can go directly as senior living placement with hospice. I am going to have hospice come and evaluate the patient and decide whether she could be even potentially cared for at home. 2. The patient has tolerated Revatio and moderate diuresis quite well and seems to be comfortable in operating at her baseline from a pulmonary hypertension and pulmonary fibrosis standpoint. 3. The patient had anemia and was transfused 1 unit of packed cells yesterday as well as an iron infusion. 4. I have had extensive discussion with the patient's sons in regard to her outcome and they are aware that senior care prognosis is very grim. 5. The patient has had poor performance with physical therapy and nutrition. She has been encouraged multiple times to try and participate but either seems unable or unwilling. 6. The patient's antidepressants are stable. cc: Lionel Eng MD
[2019-04-04] MEDS ORDERED: ZOFRAN IV ONE (23:54)
[2019-04-05] MEDS: ALBUTEROL NEB INH SCH ×4 (03:40→22:53)
[2019-04-05] MEDS: PRILOSEC PO SCH (06:24)
[2019-04-05 08:22] LABS: HEMOGLOBIN 9.7 g/dL (12.0-16.0); MCH 26.6 PG (27-31); MCHC 31.3 g/dL (33-37); MCV 84.9 FL (81-99); PLT 235 X1000 (130-400); RBC 3.65 XMIL (4.2-5.4); RDW 20.8 % (11.5-14.5); WBC 15.17 X1000 (4.8-10.8)
[2019-04-05 08:23] LABS: BASO# 0.08 X1000 (0.0-0.2); BASO% 0.5 % (0.0-0.8); EOS# 0.09 X1000 (0.0-0.7); EOS% 0.6 % (0.0-10.0); LYMPH# 0.64 X1000 (1.2-3.4); LYMPH% 4.2 % (20.5-51.1); MONO# 0.91 X1000 (0.11-0.59); MPV 8.6 FL (7.4-10.4); NEUT# 13.45 X1000 (1.4-6.5); NEUT% 88.7 % (42.2-75.2)
[2019-04-05 08:33] LABS: AGAP 12; BUN 32 mg/dL (8-22); CALCIUM 8.2 mg/dL (8.8-10.2); CHLORIDE 99 mmol/L (98-107); COSMO 286; CREATININE 0.7 mg/dL (0.5-0.9); ESTIMATED GFR > 60; GLUCOSE 90 mg/dL (70-104); POTASSIUM 3.3 mmol/L (3.5-5.1); SODIUM 140 mmol/L (136-145); TCO2 29 mmol/L (25-35)
[2019-04-05] MEDS ORDERED: KLOR-CON PO ONE ×2 (08:46→09:34)
[2019-04-05] MEDS: NORVASC PO SCH (09:04)
[2019-04-05] MEDS: CYMBALTA PO SCH (09:04)
[2019-04-05] MEDS: LEVAQUIN PO SCH (09:05)
[2019-04-05] MEDS: FERROUS SULFATE PO SCH (09:05)
[2019-04-05] MEDS: CENTRUM SILVER PO SCH (09:05)
[2019-04-05] MEDS: PAXIL PO SCH (09:05)
[2019-04-05] MEDS: PREDNISONE PO SCH (09:05)
[2019-04-05] MEDS: REVATIO PO SCH ×3 (09:06→17:19)
--- NOTE | 2019-04-05 16:34 | DISCHARGE SUMMARY ---
ADMISSION DATE: 03/19/2019 DISCHARGE DATE: 04/05/2019 DISCHARGE DIAGNOSES: 1. Pulmonary fibrosis. 2. Pulmonary hypertension. 3. Severe tricuspid regurgitation. 4. Chronic anemia. 5. Chronic leukocytosis with a baseline white cell count of 20,000 to 30,000. 6. Depression. 7. Chronic muscle weakness. 8. Right footdrop. 9. Prerenal azotemia from over-diuresis. CONSULTANTS: Dr. Ronny Camejo and Dr. Feng Banks. HOSPITAL COURSE: The patient was admitted through the emergency room. She was brought to the emergency room because she was lethargic and was soiling the bed sheets. It was determined through an office visit that she had severe prerenal azotemia manifested by very elevated BUN, although her creatinine was only up to 2. Her BUN got as high as 104. The patient's diuretics were held, and she was sent back home because she did have sitters 31/05. She continued a downhill course and was brought to the emergency room by her sons. She was still found to be azotemic but not to the degree that she had been earlier in the week in the office. She was admitted to the hospital. We gently gave her fluids to reverse her renal dysfunction. This eventually stabilized with her BUN being around 40 to 50 and creatinine being close to 1 at baseline. She continued to have normal renal function throughout. The patient's pulmonary fibrosis was treated with breathing treatments and oxygen therapy, and we added sildenafil 20 mg 3 times daily to help with the pulmonary hypertension. She seemed to tolerate this well. The patient's chronic leukocytosis was well known. She was kept on antibiotics throughout her hospitalization, although we did not have a distinct source of infection. Her white cell count came down as low as 15,000, which is as low as I have ever seen it. Previous consultations with Hematology/Oncology have yielded no discernible problem that would account for her leukocytosis. Previously, the patient had been on some blood thinner many months ago, and this was discontinued when she was found to be grossly anemic. She had transfusions and had been taking iron. During her hospitalization, although she initially came in somewhat dry as we got her fluids equilibrated, her blood count did drop, and she required a unit of packed red cells. She also received an iron infusion. The patient was slated for discharge to a rehabilitation facility, but had acute downturn. Upon examination it appeared that the patient had reaccumulated fluid as a result of being off of diuretics. We again had to gently diurese her for a few days and constructed a low-dose diuretic regimen to keep her out of trouble without causing further prerenal azotemia. When the patient is azotemic, she seems confused and does not really answer appropriately. The patient is very hard of hearing. Throughout her hospitalization Physical Therapy was employed to try and get her up and moving. To be honest despite all these pieces being in place for some moderate degree of recovery, the patient really seemed to make little effort in trying to get up. She has chronic muscle weakness and wasting and unfortunately has little strength but has even less resolve to do anything about it. Her nutrition was poor as well. During her hospitalization, medications for her chronic depression were adjusted slightly to try and get her a little bit better motivation by including some Cymbalta. She seemed to tolerate this combination fairly well but did not have the desired effect of motivating the patient. Multiple social issues were addressed throughout the hospitalization with the patient and her sons, and social work has handled the transfer into rehabilitation situation for the present time. In discussion with the patient's family, it was assumed that at some point she would go to permanent custodial placement with hospice. I really think the patient has no rehab potential whatsoever. She is to be a [id number] level 1. Approximately 10 days from discharge, she should have lab work drawn as written on her discharge orders. cc: Lionel Eng MD
[2019-04-06] MEDS: ALBUTEROL NEB INH SCH ×3 (03:24→15:26)
[2019-04-06] MEDS: CYMBALTA PO SCH (08:55)
[2019-04-06] MEDS: PAXIL PO SCH (08:55)
[2019-04-06] MEDS: FERROUS SULFATE PO SCH (08:55)
[2019-04-06] MEDS: PREDNISONE PO SCH (08:55)
[2019-04-06] MEDS: NORVASC PO SCH (08:56)
[2019-04-06] MEDS: CENTRUM SILVER PO SCH (08:56)
[2019-04-06] MEDS: LEVAQUIN PO SCH (08:56)
[2019-04-06] MEDS ORDERED: ALDACTONE PO SCH (09:00)
[2019-04-06] MEDS ORDERED: LASIX PO SCH (09:00)
--- NOTE | 2019-04-06 09:01 | PROGRESS NOTE ---
DATE: 04/06/2019 SUBJECTIVE: The patient is awake, alert, oriented, and as interactive and energetic as I have seen her. She is scheduled to be transported to [facility] today for rehab assignment. OBJECTIVE: Vital signs: 98, 96, 16, 149/66, 96% saturated on 4 L nasal cannula. PHYSICAL EXAMINATION: The patient's lungs are clear in the anterior superior lobes. Posteriorly she has crackles which is her baseline exam. Cardiovascular is regular at 96 beats per minute which is close to her baseline. Extremities Show no peripheral edema. There was some fine skin wrinkling indicative of recent diuresis. LABORATORIES: Were performed yesterday and showed a white cell count of 15,000, which is below her baseline. Hemoglobin 9.7, hematocrit 31, which is close to her baseline. BUN is 32, creatinine 0.7, which is optimal for her. PLAN: The patient was scheduled to be transferred to [facility] yesterday but it got to be too late in the day and transport was unavailable, so she stayed over last night. She should be transported out today. Discharge orders are written. If she should proceed out of rehab to regain her home and she can follow up at any time with me. The patient's son has my cell phone number and can ask questions at any time. Overall, our plan though was to likely result in permanent residential placement with hospice care. We will see if the patient can get motivated more so than she has been during her hospitalization and actually regain some form of more meaningful existence. cc: Lionel Eng MD
[2019-04-06] MEDS: REVATIO PO SCH (09:04)
[2019-04-06] MEDS: PRILOSEC PO SCH (09:04)
[2019-04-06 17:00] VITALS: BP 154/88
== END 2019-04-06 17:55 | DRG 197 ==
LOC: SUPCPDRO → ED 16:55 → INTOOBSV 21:59 → SUATTDRO 21:59 → 3N 21:59
PROVIDERS: ADMIT Internal Medicine; ATTEND Internal Medicine
CPT/HCPCS: 36430; 36569; 51701; 70450; 71010; 71045; 80048; 80053; 81001; 82270; 82550; 82805; 82948; 83540; 83605; 83880; 84484; 85025; 85027; 85610; 85651; 85730; 86140; 86850; 86900; 86901; 86920; 87040; 87045; 87046; 87205; 87324; 89055; 93005; 93010; 93308; 93971; 94640; 94760; 94761; 96365; 97110; 97162; 97530; 99285; A9270; J0696; J1940; J1956; J2405; J7030; J7050; J7506; J7512; P9016; P9047; P9612; XXXXX